=== PATIENT | male | born 1950 | race Caucasian/White ===

== ENCOUNTER → 2020-01-14 11:11 | Outpatient (BNVA) | payer MEDICARE, OTHER, SELFPAY | PROVIDERS: Visit Provider Family Medicine | DX: E78.2 Mixed hyperlipidemia (principal); I10 Essential (primary) hypertension; M19.90 Unspecified osteoarthritis, unspecified site; N40.0 Benign prostatic hyperplasia without lower urinary tract symptoms; R05 Cough | CPT/HCPCS: 80053; 80061; G0103 ==

== ENCOUNTER → 2020-07-26 11:17 | Outpatient (BNVA) | payer MEDICARE, OTHER, SELFPAY | PROVIDERS: PCP Family Medicine; Visit Provider Family Medicine | DX: E78.2 Mixed hyperlipidemia (principal); I10 Essential (primary) hypertension | CPT/HCPCS: 80053; 80061; 85025 ==

== ENCOUNTER → 2021-01-10 09:53 | Outpatient (BNVA) | payer MEDICARE, OTHER, SELFPAY | PROVIDERS: PCP Family Medicine; Visit Provider Nurse Practitioner Family | DX: I71.9 Aortic aneurysm of unspecified site, without rupture (principal); M48.54XA Collapsed vertebra, not elsewhere classified, thoracic region, initial encounter for fracture; M54.5 Low back pain; R07.81 Pleurodynia; M54.6 Pain in thoracic spine | CPT/HCPCS: 71111; 72070; 72100 ==

== ENCOUNTER 2021-01-10 18:29 | Emergency (ER) | payer MEDICARE, OTHER, SELFPAY ==
[2021-01-10 18:40] VITALS: BP 142/86; PULSE 105; RESP 20; TEMP 36.8; O2SAT 97; BMI 25.9
--- NOTE | 2021-01-10 18:51 | ED_ITS ---
HPI - Back Pain/Injury General: Chief Complaint: Back Pain/Injury Stated Complaint: back injury Time Seen by Provider: 01/10/21 18:49 Source: patient Mode of arrival: wheelchair Limitations: no limitations History of Present Illness: HPI Narrative: 70-year-old male patient presents to the emergency department with complaints of back pain. He reports exhibited coughing spell on Saturday, December 25, 2020, passed out, he thinks he hit his back on the wall, when he woke he was kneeling in front of his seat. He reports was only out for a few minutes. He has COPD, similar incident has occurred in the past. He was seen by his primary care provider Saturday, compression fracture of T9 with 50% loss of vertebral height and no obvious displacement appreciated. He continues to complain of pain in the thoracic spine as well as in the lumbar spine. He states is hurting all across his back. He denies headache, neck pain or other extremity pain. He denies radiculopathy complaints. States difficulty walking secondary to pain he experiences in his back. He reports difficulty lying flat on his back secondary to pain. MD elicited complaint: back pain, back injury and fall Onset (ago): day(s) (3) Timing: constant and progressively worsening Severity: moderate Similar Symptoms Previously: Yes Quality: sharp and stabbing Location: lumbar spine and thoracic spine Radiation: none Exacerbating factors: movement, supine positioning, walking and coughing/sneezing Relieving factors: immobilization and sitting upright Context: fall and syncope Associated symptoms: Reports difficulty walking, dysuria and syncope; Deny abdominal pain, chills, fatigue, fever(s), nausea or vomiting Work related injury: No Review of Systems General: Reports: 10 or more systems reviewed and unremarkable except in HPI and below Const: Denies: fever(s), chills, fatigue, malaise or diaphoresis Eyes: Denies: blurry vision or eye redness ENMT: Denies: throat pain, dental pain or disequilibrium Card: Reports: syncope and dyspnea on exertion (chronic due to COPD); Denies: chest pain, palpitations or orthopnea Resp: Reports: productive cough, pain on inspiration (thoracic spine) and chest congestion; Denies: dyspnea, non-productive cough, wheezing, change in phlegm color or hemoptysis GI: Denies: abdominal pain, nausea or vomiting : Reports: dysuria and difficulty starting urination; Denies: flank pain Musc: Reports: back pain; Denies: neck pain, extremity pain, muscle cramps or muscle weakness Skin/Breast: Denies: rash or pruritus Neuro: Reports: difficulty walking Psych: Denies: anxiety or depression Wilberto/Lymph: Denies: easy bruising PFSH ED PFSH: Medical History (Updated 01/10/21 @ 21:05 by CAMILA Gong) Abdominal hernia Acute depression Adenocarcinoma of prostate (~2012) Chronic constipation Chronic radicular low back pain Essential (primary) hypertension Glaucoma Hyperlipidemia, unspecified Male urinary stress incontinence Panlobular emphysema Surgical History Hx of cataract surgery Hx of detached retina repair right x 3 Hx of prostatectomy Hx of removal of neck cyst Hx of right inguinal hernia repair Family History Brother Cancer prostate, colon Chronic kidney disease (CKD) Hypertension Diabetes Father Chronic kidney disease (CKD) Social History Smoking and tobacco status: current every day smoker cigarettes Packs smoked per day: 1 Years cigarettes smoked: 30 Alcohol intake: never Lives independently: Yes Household members: none Housing: Apartment Marital status: Current occupational status: retired History of recent travel: No Current gender identity: Male Physical Exam Const: COMMON NORMALS: no acute distress, patient oriented x3, healthy appearing and alert GENERAL APPEARANCE: cooperative, comfortable and well hydrated HENMT: COMMON NORMALS: normocephalic, Normal external nose present and moist oral mucous membranes HEAD & SCALP: normocephalic NOSE: Normal external nose present Eye: COMMON NORMALS: Equal, round and reactive pupils present and EOMs intact bilaterally GENERAL EYE: appearance normal, both eyes and all related structures PUPIL: Yes Equal, round and reactive pupils present Neck/C-Spine: COMMON NORMALS: full ROM, no lymphadenopathy, supple and no meningeal signs GENERAL: Yes normal visual inspection and Yes trachea midline CERVICAL SPINE: Yes cervical ROM normal, No pain with cervical ROM, No loss of normal cervical lordosis, No Cervical spine tenderness, No Paracervical muscle tenderness, No Paracervical spasm and No Trapezius muscle tenderness Lymph: LYMPHATIC: no lymphadenopathy noted Chest: COMMONS NORMALS: normal inspection of the chest and normal palpation of entire chest wall CHEST: No localized rib tenderness with anteroposterior compression Resp: COMMON NORMALS: normal respiratory effort, No retractions, No use of accessory muscles and clear to auscultation bilaterally EFFORT & INSPECTION: Yes able to speak in complete sentences, No decreased respiratory effort and No labored AUSCULTATION: clear to auscultation bilaterally and rhonchi (scattered, cleared wtih cough) Cardio: COMMON NORMALS: regular rate, regular rhythm, S1 normal heart sound present, S2 normal heart sound present and Peripheral pulses 2+ throughout RATE: regular rate RHYTHM: regular rhythm HEART SOUNDS: S1 normal heart sound present and S2 normal heart sound present PERIPHERAL PULSES: Peripheral pulses 2+ throughout GI: COMMON NORMALS: Normal to inspection, nondistended, normoactive bowel sounds present, Soft to palpation and non-tender INSPECTION: Yes normal to inspection PALPATION: Yes Soft to palpation : COMMON NORMALS: Yes no CVA tenderness BLADDER/KIDNEY EXAM: Yes no CVA tenderness Back/Pelvis: COMMON NORMALS: no CVA tenderness THORACIC SPINE/UPPER BACK: Yes ROM limited, Yes thoracic spinal tenderness T-spine tenderness location: T4, T5, T6, T7 and T8, Yes paraspinal muscle tenderness and Yes paraspinal muscle spasm LUMBAR SPINE/LOWER BACK: Yes ROM limited, Yes paraspinal muscle tenderness and Yes paraspinal muscle spasm PELVIS: Yes buttocks normal S ACROILIAC JOINTS: Yes SI joints normal Extremity: COMMON NORMALS: normal to inspection and capillary refill normal Neuro: YESY COMA SCALE: document GCS findings [place] coma scale eye opening: Spontaneous Yesy coma scale verbal response: Orientated [place] coma scale motor response: Obey commands [place] coma scale total score: 15 COMMON NORMALS: patient oriented x3 and no focal motor deficits SENSORIUM/ORIENTATION: Yes alert MENINGEAL SIGNS: Yes no meningeal signs MONOFILAMENT EXAM PERFORMED: Yes MOTOR EXAM: 5/5 motor strength present throughout Psych: COMMON NORMALS: mental status grossly normal, Normal thought process present, cooperative, normal affect, speech normal and activity/motor behavior normal ACTIVITY/MOTOR BEHAVIOR: Yes appropriate eye contact SPEECH: Yes normal speech THOUGHT PROCESS: Normal thought process present Skin: COMMON NORMALS: no rashes or lesions noted and turgor normal GENERAL SKIN EXAM: no rashes or lesions noted and turgor normal Course ED course: 70-year-old male patient presents to the emergency department with thoracic spine fracture, was sent to the ED by his primary care provider, he denies radiculopathy, numbness tingling or weakness of the bilateral lower extremities. X-rays reviewed as well as radiology reports, chest x-ray completed today without acute findings. He suffers from COPD. He was administered hydrocodone for pain, pain improved, neurological exam of the extremities without deficits. Incidental finding of aortic iliac aneurysm with recommendation for outpatient serial follow-up identified. Called and spoke with Dr. Delgadillo, TLSO brace from [employer] ordered and placed here in the ED. Case discussed with Dr. Jansen, patient provided prescription of hydrocodone with referral to social work supervisor to assist with appointment with Dr. Delgadillo. Consultations: Consultation #1: Dr Delgadillo, orthopedist, discussed history of present illness, mechanism of injury and CT results of thoracic and lumbar spine, compression fracture T9 with 50% height loss anteriorly. Advise use of TLSO brace with appropriate pain control. Agrees to follow patient in the office. Time: 21:00 Vital Signs: Vital signs: Vital Signs Temperature 97.3 F L 01/10/21 21:10 Pulse Rate 108 H 01/10/21 21:10 Respiratory Rate 19 H 01/10/21 21:10 Blood Pressure 132/74 01/10/21 21:10 Pulse Oximetry 97 01/10/21 18:40 MDM - Back Pain/Injury Imaging Data^: Other CT: Radiologist's impression: [address] [address] [address] Scan Report Signed Patient: Juno Sapp Unit #: [id number] : 1950 Age/Sex: 70 / M ADM Date: 01/10/21 Loc: ER Room/Bed: Attending Dr: Ordering Provider/Ordering MD: Yumi Alexander Date of Service: 01/10/21 Procedure(s): CT lumbar spine wo con* [id number] Accession Number(s): [id number] Report Number: [id number] PROCEDURE INFORMATION: Exam: CT Lumbar Spine Without Contrast Exam date and time: 01/10/2021 7:19 PM Age: 70 years old Clinical indication: Injury or trauma; Fall; Blunt trauma (contusions or hematomas); Additional info: Lbp S/P fall TECHNIQUE: Imaging protocol: Computed tomography images of the lumbar spine without contrast. Radiation optimization: All CT scans at this facility use at least one of these dose optimization techniques: automated exposure control; mA and/or kV adjustment per patient size (includes targeted exams where dose is matched to clinical indication); or iterative reconstruction. COMPARISON: CR XR lumbar spine 2-3V* [id number] 01/10/2021 10:05 AM RADIATION DOSE METRICS: Total DLP (mGy-cm): 2437.94 FINDINGS: Vertebrae: No fractures. Unremarkable alignment. Diffuse osseous demineralization.The lumbar spine demonstrates marked discogenic and apophyseal joint degenerative changes at multiple levels. Vasculature: Large volume diffuse atherosclerosis of abdominal aorta and the iliac arteries. Mild severity fusiform distal abdominal aortic aneurysm 3.2 cm greatest diameter. 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 Fusiform bilateral common iliac artery aneurysms measuring 2.0 cm on the right and about 1.8 cm on the left. Soft tissues: Moderate severity spinal canal stenosis at L3-L4 and L4-L5 secondary to broad-based posterior disc bulge, facet joint arthritis and ligamentum flavum thickening. CT/CT lumbar spine wo con* [id number] IMPRESSION: 1. Negative for acute lumbar spine abnormality. 2. Mild fusiform aortoiliac aneurysms. Outpatient surveillance recommended. Radiation Dose CTDIVOL = (mGy): DLP = 2437.94 (mGy-cm) Dictated By: Yusef Guevara Signed By: Yusef Guevara Signed Date/Time: 01/10/212044 DD/ 43 Other Imaging: Radiologist's impression: [address] [address] [address] Scan Report Signed Patient: Juno Sapp Unit #: [id number] : 1950 Age/Sex: 70 / M ADM Date: 01/10/21 Loc: ER Room/Bed: Attending Dr: Ordering Provider/Ordering MD: Yumi Alexander Date of Service: 01/10/21 Procedure(s): CT thoracic spin wo con* [id number] Accession Number(s): [id number] Report Number: [id number] PROCEDURE INFORMATION: Exam: CT Thoracic Spine Without Contrast Exam date and time: 01/10/2021 7:19 PM Age: 70 years old Clinical indication: Injury or trauma; Blunt trauma (contusions or hematomas); Patient HX: Fall, left rib pain; Additional info: Compression fracture TECHNIQUE: Imaging protocol: Computed tomography images of the thoracic spine without contrast. Radiation optimization: All CT scans at this facility use at least one of these dose optimization techniques: automated exposure control; mA and/or kV adjustment per patient size (includes targeted exams where dose is matched to clinical indication); or iterative reconstruction. COMPARISON: CR XR thoracic spine 2V [id number] 01/10/2021 10:05 AM RADIATION DOSE METRICS: Total DLP (mGy-cm): 1571.16 FINDINGS: Vertebrae: T9 compression fracture. There is concavity of the inferior endplate primarily. Greater than 50% height loss anteriorly. There is mild retropulsion of the inferior posterior corner of the vertebral body. Thoracic spinal alignment is unremarkable. Posterior elements are intact and unremarkable. No soft tissue hematoma in the epidural space identified. Mild severity spinal canal stenosis at T9-T10 secondary to the mild retropulsion of the inferior T9 vertebral body fracture component. Other bones/joints: Bones are diffusely demineralized. Liver: Incidental simple cyst in the central right liver. Soft tissues: Mild anterior paravertebral soft tissue hematoma. No intramuscular paraspinal soft tissue hematoma. Large volume diffuse atherosclerotic wall plaque of descending thoracic aorta. Mild diffuse ectasia pattern. CT/CT thoracic spin wo con* [id number] IMPRESSION: T9 vertebral compression fracture as described. Radiation Dose CTDIVOL = (mGy): DLP = 1571.16 (mGy-cm) Dictated By: Yusef Guevara Signed By: Yusef Guevara Signed Date/Time: 01/10/212001 DD/ 00 Discharge Plan Discharge Patient Disposition: Home Clinical Impression: Fall against object, Abdominal aneurysm Compression fracture of thoracic vertebra Qualifiers: Encounter type: initial encounter Thoracic vertebra fracture level: T9 Qualified Code(s): S22.070A - Wedge compression fracture of T9-T10 vertebra, initial encounter for closed fracture Condition: Stable Prescriptions: New hydrocodone-acetaminophen 5-325 mg tablet 1 tab PO Q4H PRN (Reason: pain) Qty: 10 RF: 0 No Action citalopram 20 mg tablet 20 mg PO DAILY Qty: 30 RF: 5 rosuvastatin [Crestor] 10 mg tablet 10 mg PO DAILY Qty: 30 RF: 4 omeprazole 20 mg capsule,delayed release(DR/EC) 20 mg PO DAILY Qty: 30 RF: 5 tramadol 50 mg tablet 50 mg PO BID PRN (Reason: rib pain) Qty: 20 RF: 0 valsartan 160 mg tablet 160 mg PO DAILY Qty: 90 RF: 1 albuterol sulfate [Ventolin HFA] 90 mcg/actuation HFA aerosol inhaler 2 puff INHALATION Q6H PRN (Reason: bronchospasm) Qty: 8.5 RF: 4 celecoxib 200 mg capsule 200 mg PO DAILY RF: 0 latanoprost 0.005 % drops 1 drp ophthalmic (eye) DAILY RF: 0 Discharge Orders: Discharge ED (Routine); Ordered 01/10/21 Ordered By: Yumi Alexander Referrals: Ketty Sapp MD [Primary Care Provider] - Discharge Activity: Limit activity as instructed Patient Instructions: Vertebral Compression Fracture (ED), Abdominal Aortic Aneurysm (GEN), Opioid Safety Activity Restrictions/Additional Instructions: Please wear brace as instructed by therapist, this will help with pain and and healing of the fracture environmental services coordinator will be contacting you with follow-up appointment with specialty services, Dr. Delgadillo for compression fracture Incidental mild aortic iliac aneurysm was evaluated today on CT scan completed, outpatient surveillance recommended with continued follow-up with your primary care provider. Return to the emergency department if you develop worsening pain, numbness of the lower extremities or other concerning symptoms such as abdominal pain Coding Level of Care Code ED General Manager In Training for S[employer]il[employer] Fwd Exam Comprehensive
--- NOTE | 2021-01-10 18:58 | CTR_ITS ---
PROCEDURE INFORMATION: Exam: CT Thoracic Spine Without Contrast Exam date and time: 01/10/2021 7:19 PM Age: 70 years old Clinical indication: Injury or trauma; Blunt trauma (contusions or hematomas); Patient HX: Fall, left rib pain; Additional info: Compression fracture TECHNIQUE: Imaging protocol: Computed tomography images of the thoracic spine without contrast. Radiation optimization: All CT scans at this facility use at least one of these dose optimization techniques: automated exposure control; mA and/or kV adjustment per patient size (includes targeted exams where dose is matched to clinical indication); or iterative reconstruction. COMPARISON: CR XR thoracic spine 2V [id number] 01/10/2021 10:05 AM RADIATION DOSE METRICS: Total DLP (mGy-cm): 1571.16 FINDINGS: Vertebrae: T9 compression fracture. There is concavity of the inferior endplate primarily. Greater than 50% height loss anteriorly. There is mild retropulsion of the inferior posterior corner of the vertebral body. Thoracic spinal alignment is unremarkable. Posterior elements are intact and unremarkable. No soft tissue hematoma in the epidural space identified. Mild severity spinal canal stenosis at T9-T10 secondary to the mild retropulsion of the inferior T9 vertebral body fracture component. Other bones/joints: Bones are diffusely demineralized. Liver: Incidental simple cyst in the central right liver. Soft tissues: Mild anterior paravertebral soft tissue hematoma. No intramuscular paraspinal soft tissue hematoma. Large volume diffuse atherosclerotic wall plaque of descending thoracic aorta. Mild diffuse ectasia pattern. CT/CT thoracic spin wo con* [id number] IMPRESSION: T9 vertebral compression fracture as described. Radiation Dose CTDIVOL = (mGy): DLP = 1571.16 (mGy-cm)
--- NOTE | 2021-01-10 18:58 | CTR_ITS ---
PROCEDURE INFORMATION: Exam: CT Lumbar Spine Without Contrast Exam date and time: 01/10/2021 7:19 PM Age: 70 years old Clinical indication: Injury or trauma; Fall; Blunt trauma (contusions or hematomas); Additional info: Lbp S/P fall TECHNIQUE: Imaging protocol: Computed tomography images of the lumbar spine without contrast. Radiation optimization: All CT scans at this facility use at least one of these dose optimization techniques: automated exposure control; mA and/or kV adjustment per patient size (includes targeted exams where dose is matched to clinical indication); or iterative reconstruction. COMPARISON: CR XR lumbar spine 2-3V* [id number] 01/10/2021 10:05 AM RADIATION DOSE METRICS: Total DLP (mGy-cm): 2437.94 FINDINGS: Vertebrae: No fractures. Unremarkable alignment. Diffuse osseous demineralization.The lumbar spine demonstrates marked discogenic and apophyseal joint degenerative changes at multiple levels. Vasculature: Large volume diffuse atherosclerosis of abdominal aorta and the iliac arteries. Mild severity fusiform distal abdominal aortic aneurysm 3.2 cm greatest diameter. 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 Fusiform bilateral common iliac artery aneurysms measuring 2.0 cm on the right and about 1.8 cm on the left. Soft tissues: Moderate severity spinal canal stenosis at L3-L4 and L4-L5 secondary to broad-based posterior disc bulge, facet joint arthritis and ligamentum flavum thickening. CT/CT lumbar spine wo con* [id number] IMPRESSION: 1. Negative for acute lumbar spine abnormality. 2. Mild fusiform aortoiliac aneurysms. Outpatient surveillance recommended. Radiation Dose CTDIVOL = (mGy): DLP = 2437.94 (mGy-cm)
[2021-01-10] MEDS: HYDROcodone-acetaminophen 5-325 mg Tablet 1 TAB PO ×3 (19:08→23:30)
[2021-01-10 21:10] VITALS: BP 132/74; PULSE 108; RESP 19; TEMP 36.3
[2021-01-10 23:33] VITALS: BP 120/71; PULSE 106; RESP 17; TEMP 36.3; O2SAT 97
--- NOTE | 2021-01-11 12:46 | DCPLANNER ---
quality compliance manager had message to schedule a follow up appointment for patient with ortho. quality compliance manager called the ortho clinic, spoke with Kriss, gave clinic patients information. quality compliance manager was told that patients information would be printed and reviewed. Clinic will call patient with appointment information.
--- NOTE | 2021-01-17 08:24 | DCPLANNER ---
Patient had a follow up appointment scheduled for 01.12.[address] Delgadillo at [facility] - patient did attend appointment.
== END 2021-01-10 23:35 | disposition home or self-care (01) ==
PROVIDERS: Emergency Provider Nurse Practitioner Family; PCP Family Medicine
DX: S22.070A Wedge compression fracture of T9-T10 vertebra, initial encounter for closed fracture (principal); I71.4 Abdominal aortic aneurysm, without rupture; Z85.46 Personal history of malignant neoplasm of prostate; I10 Essential (primary) hypertension; E78.5 Hyperlipidemia, unspecified; Z90.79 Acquired absence of other genital organ(s); F17.210 Nicotine dependence, cigarettes, uncomplicated; W22.8XXA Striking against or struck by other objects, initial encounter; I71.9 Aortic aneurysm of unspecified site, without rupture; M48.54XA Collapsed vertebra, not elsewhere classified, thoracic region, initial encounter for fracture; M54.5 Low back pain; R07.81 Pleurodynia; M54.6 Pain in thoracic spine
CPT/HCPCS: 71111; 72070; 72100; 72128; 72131; 99283

== ENCOUNTER 2021-02-22 06:00 | Outpatient (RCR) | payer MEDICARE, OTHER, SELFPAY | END 2021-03-14 23:00 | disposition home or self-care (01) | LOC: TPT 06:00 | PROVIDERS: PCP Family Medicine; Referring Provider Orthopaedic Surgery; Visit Provider Orthopaedic Surgery | DX: M54.5 Low back pain (principal) | CPT/HCPCS: 97110; 97161 ==

== ENCOUNTER → 2021-03-15 09:21 | Outpatient (BNVA) | payer MEDICARE, OTHER, SELFPAY | PROVIDERS: PCP Family Medicine; Visit Provider Family Medicine | DX: E78.2 Mixed hyperlipidemia (principal); I10 Essential (primary) hypertension | CPT/HCPCS: 80053; 80061; 85025 ==

== ENCOUNTER → 2021-03-21 09:53 | Outpatient (BNVA) | payer MEDICARE, OTHER, SELFPAY | PROVIDERS: PCP Family Medicine; Visit Provider Orthopaedic Surgery | DX: S22.000A Wedge compression fracture of unspecified thoracic vertebra, initial encounter for closed fracture (principal); M47.897 Other spondylosis, lumbosacral region; M41.87 Other forms of scoliosis, lumbosacral region; X58.XXXA Exposure to other specified factors, initial encounter | CPT/HCPCS: 72100 ==

== ENCOUNTER → 2021-07-12 10:00 | Outpatient (BNVA) | payer MEDICARE, OTHER, SELFPAY | PROVIDERS: PCP Family Medicine; Visit Provider Family Medicine | DX: E78.2 Mixed hyperlipidemia (principal); I10 Essential (primary) hypertension; J43.1 Panlobular emphysema; K21.9 Gastro-esophageal reflux disease without esophagitis | CPT/HCPCS: 80053; 80061; 84443; 85025 ==

== ENCOUNTER → 2021-10-18 16:58 | Outpatient (BNVA) | payer MEDICARE, OTHER, SELFPAY | PROVIDERS: PCP Family Medicine; Visit Provider Family Medicine | DX: I10 Essential (primary) hypertension (principal); E78.2 Mixed hyperlipidemia | CPT/HCPCS: 80053; 80061; 84443; 85025 ==

== ENCOUNTER → 2022-01-25 14:50 | Outpatient (BNVA) | payer MEDICARE, OTHER, SELFPAY | PROVIDERS: PCP Family Medicine; Visit Provider Family Medicine | DX: E78.2 Mixed hyperlipidemia (principal); I10 Essential (primary) hypertension; J43.1 Panlobular emphysema; K21.9 Gastro-esophageal reflux disease without esophagitis; M19.90 Unspecified osteoarthritis, unspecified site | CPT/HCPCS: 80053; 80061; 84443; 85025 ==

== ENCOUNTER → 2022-06-05 14:15 | Outpatient (BNVA) | payer MEDICARE, OTHER, SELFPAY | PROVIDERS: PCP Family Medicine; Visit Provider Family Medicine | DX: I10 Essential (primary) hypertension (principal); M19.90 Unspecified osteoarthritis, unspecified site; K21.9 Gastro-esophageal reflux disease without esophagitis; E78.2 Mixed hyperlipidemia | CPT/HCPCS: 80053; 80061; 84443; 85025 ==

== ENCOUNTER → 2022-09-26 15:49 | Outpatient (BNVA) | payer MEDICARE, OTHER, SELFPAY | PROVIDERS: PCP Family Medicine; Visit Provider Family Medicine | DX: I10 Essential (primary) hypertension (principal); K21.9 Gastro-esophageal reflux disease without esophagitis; E78.2 Mixed hyperlipidemia | CPT/HCPCS: 80053; 80061; 84443; 85025 ==

== ENCOUNTER 2022-09-27 07:15 | Outpatient (CLI) | payer MEDICARE, OTHER, SELFPAY ==
--- NOTE | 2022-09-27 07:45 | USR_ITS ---
PROCEDURE INFORMATION: Exam: US Duplex Left Lower Extremity Arteries Or Arterial Bypass Grafts Exam date and time: 09/27/2022 7:38 AM Age: 71 years old Clinical indication: Pain; Leg, lower; Left; Additional info: M79.605 - pain in left leg TECHNIQUE: Imaging protocol: Left Real-time duplex scan of the arteries or arterial bypass grafts of the left lower extremity with 2-D abraham scale, color Doppler flow and spectral waveform analysis. Images documented and saved. COMPARISON: CT abdomen pelvis w con* [id number] 05/10/2018 1:05 PM FINDINGS: Left external iliac artery: Left iliac artery: Peak systolic velocity of 29 cm/s proximally, 10 cm/s in the midportion, and 7 cm/s distally. Monophasic waveforms. Left common femoral artery: Peak systolic velocity of 32 cm/s. Monophasic waveform. Left superficial femoral artery: Peak systolic velocity of 26 cm/s. Monophasic waveform. Left popliteal artery: Peak systolic velocity of 22 cm/s. Monophasic waveform waveform. Left calf/foot arteries: Peak systolic velocity of 11 cm/s in the posterior tibial artery, with monophasic waveform. Peak systolic velocity of 19 cm/s in the dorsalis pedis artery, with monophasic waveform. Other findings: Left JEAN PAUL 0.56. 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
== END 2022-09-27 07:16 | disposition home or self-care (01) ==
LOC: RAD 07:16
PROVIDERS: PCP Family Medicine; Visit Provider Family Medicine
DX: M79.605 Pain in left leg (principal)
CPT/HCPCS: 93926

== ENCOUNTER → 2022-12-03 13:01 | Outpatient (BNVA) | payer MEDICARE, OTHER, SELFPAY | PROVIDERS: PCP Family Medicine; Visit Provider Internal Medicine | DX: M79.605 Pain in left leg (principal); I10 Essential (primary) hypertension; E78.2 Mixed hyperlipidemia; F17.210 Nicotine dependence, cigarettes, uncomplicated | CPT/HCPCS: 99204 ==

== ENCOUNTER 2022-12-04 09:34 | Outpatient (CLI) | payer MEDICARE, OTHER, SELFPAY ==
[2022-12-04 10:06] LABS: Basophils # 0.1 10^3/uL (0.0-0.1); Basophils % 0.8 %; Eosinophils # 0.2 10^3/uL (0.0-0.8); Eosinophils % 3.4 %; Hematocrit 44.3 % (42.0-52.0); Hemoglobin 14.3 g/dL (11.7-16.6); Lymphocytes # 1.1 10^3/uL (0.8-4.8); Lymphocytes % 15.4 %; Mean Corpuscular HGB Conc 32.3 g/dL (30.0-36.0); Mean Corpuscular Hemoglobin 29.5 pg (28.0-34.0); Mean Corpuscular Volume 91.3 fl (80-94); Mean Platelet Volume 8.6 fL (7.4-10.4); Monocytes # 0.6 10^3/uL (0.2-0.9); Monocytes % 8.7 %; Neutrophils # 5.09 10^3/uL (1.8-7.7); Neutrophils % 71.3 %; Nucleated Red Blood Cells % 0 %; Platelet Count 323 10^3/cmm (130-400); Red Blood Count 4.85 10^6/uL (4.1-5.3); Red Cell Distribution Width 13.6 % (12.1-15.1); White Blood Count 7.1 10^3/uL (4.0-10.0)
[2022-12-04 10:25] LABS: INR 0.99 (0.83-1.21); Prothrombin Time (Patient) 13.3 Seconds (12.0-15.1)
[2022-12-04 10:30] LABS: Anion Gap 13.7 (5-19); Blood Urea Nitrogen 10 mg/dL (8-23); Calcium 8.9 mg/dL (8.5-10.5); Carbon Dioxide 29 mmol/L (22-29); Chloride 101 mmol/L (98-107); Glucose 93 mg/dL (65-115); Osmolality Calculated 289 mOsm/kg (285-295); Potassium 3.7 mmol/L (3.5-5.1); Sodium 140 mmol/L (136-145)
== END 2022-12-04 09:35 | disposition home or self-care (01) ==
LOC: LAB 09:41
PROVIDERS: PCP Family Medicine; Visit Provider Internal Medicine
DX: I73.9 Peripheral vascular disease, unspecified (principal); I10 Essential (primary) hypertension
CPT/HCPCS: 36415; 80048; 85025; 85610

== ENCOUNTER 2022-12-06 07:24 | Outpatient (CLI) | payer MEDICARE, OTHER, SELFPAY ==
[2022-12-06] VITALS (20 sets, daily range): BP systolic 106–148; BP diastolic 63–79; PULSE 79–100; RESP 8–23; TEMP 36.8; O2SAT 94–98; BMI 23.5
--- NOTE | 2022-12-06 07:30 | XACV_ITS ---
Ht: 170 cm Wt: 68 kg BSA: 1.80 m2 Any Known Allergies: No known allergies Gender: Male : 1950 Exam Type: Invasive Peripheral Vascular Procedure(s): Procedure Description: Peripheral Cath Diagnostic Procedure Procedure Description: Abdominal aortic angiography Procedure Description: Iliac arterial aortic angiography Procedure Description: Lower extremities' angiography Exam Priority: Routine Abdominal Diagnostic Findings INDICATION: 72-year-old man with past medical history of hyperlipidemia, hypertension who has been referred for evaluation of peripheral artery disease. According to patient he has been having worsening lower extremity discomfort on exertion bilaterally however it is much worse on the left lower extremity. He underwent arterial Doppler of the left lower extremity with JEAN PAUL. JEAN PAUL 0.56. Doppler ultrasound shows both inflow and outflow disease. Distal abdominal aorta: Patent. Lower Extremity Diagnostic Findings Left Lower extremity findings: Left common iliac artery: Has severe 60 to 70% ostial lesion. Left external iliac artery:Totally occluded. Left common femoral artery: Occluded. Left SFA: Patent. Left profunda: Patent. Left popliteal artery:Patent. Left TP segment: Patent. At takeoff of anterior tibial artery: Distal popliteal/TP segment has a calcified lesion. Left anterior tibial artery: Patent but has significant 70 to 80% long lesion Left peroneal artery: Patent Left posterior tibial artery: Patent. Right lower extremity findings: Right common iliac artery: Patent. Right external iliac artery: Totally occluded. Right common femoral artery: Occluded. Right SFA: Patent. Right profunda artery: Patent. Rightpopliteal artery: Patent. Right anterior tibial artery: Occluded. Right TP segment: Occluded Right Posterior tibial artery: reconstitutes via collaterals Right peroneal artery: Reconstitutes via collaterals. . Conclusions Severe bilateral peripheral artery disease. Recommendations We will refer to vascular surgery team. Outpatient cardiology follow up in 4 weeks. Hemodynamic Data Phase:Rest AO : 104.0 / 54.0 ( 70.0 ) @ 9:19:00 AM Access Site Site: Right Radial artery Sheath Size: 6 Fr Hemost... Method: TR Band Hemost... Success: Successful Procedure Details Findings Pre-Procedure Time Out. Identified patient by full name and date of as verbalized by the patient/guarantor. Does the consent match the physician's order: Yes. Accurate & Complete Informed Consent: Yes. Inpatient/Outpatient History & Physical on Chart: Yes. If H&P is completed, is and addenduem needed: No. Visualize and Verify Site with Patient/Guarantor: N/A. Relevant Radiology Images available: Yes. Pre-op teaching completed and patient verbalized understanding. The risks, benefits, and alternatives of sedation and/or procedure were discussed by physician. The patient agrees to continue. Procedure started. Vital chart was stopped. Correct patient, site and procedure confirmed by cath team. Current diagnosis: PAD. PERRLA. Strong, equal hand financial analysis manager bilaterally. Lungs clear x 5 lobes. IV Site on Arrival: 20 gauge in the right anticubital. IV Fluids: 0.9% NaCl at KVO. 0 mL infused prior to labor specialist. Pre Procedural Pulses: right dorsalis pedis was Absent. Pre Procedural Pulses: left dorsalis pedis was Doppled. Pre Procedural Pulses: bilateral posterior tibial was Doppled. Pre Procedural Pulses: bilateral radial was 2+. Oxygen started at 2liters/min via nasal canula. Physician notified. Baseline sample Acquired. HR: 98 BPM. Baseline sample Acquired. HR: 95 BPM. Equipment: 6F - Femoral. Cardiac Cath Pack. ACIST Manifold Kit Model BT 2000. Heparinized Saline (2 units/mL), 1000 mL bag. Kit, Micropuncture. Physician arrived. Physician scrubbed in. Immediate Pre-Procedure Time Out. Correct Patient: Yes; Correct Procedure: Yes; Correct Site: Yes; Correct Patient Position: Yes; Correct Supplies: Yes; Dried Flammable Prep: Yes; Blood Products Available: N/A. Lidocaine 1% infiltrated to the right groin. Arterial access obtained with micropuncture set using ultrasound guidance. Sheath kit wire unable to advance. Hand injection performed. Micropucture needle out, manual pressure being held by RT Gregg(R). Will move to radial access. Lidocaine 1% infiltrated to the right radial. Arterial access obtained using ultrasound guidance. A 6 marshallese Straight Pig catheter in over the exchange J wire. Aortogram performed in AP @ 10 mL/second for a total of 30 mL. Pigtail postioned above the bifurcation of the iliacs. Aortagram performed @ 10 mL/sec for a total of 30 mL in DSA. Catheter in the aorta and arteriogram with runoff performed of the left popliteal @ 10 mL/sec for a total of 30 mL in DSA. Catheter in the aorta and arteriogram with runoff performed of the right popliteal@ 10 mL/sec for a total of 30 mL. Catheter in the aorta and arteriogram with runoff performed of the right popliteal @ 10 mL/sec for a total of 30 mL in DSA. Aortogram performed in AP @ 10 mL/second for a total of 30 mL in DSA. Catheter removed over the exchange J wire. Dr Prado scrubbed out after updating the patient. A TR Band was successful obtaining hemostatsis at the Right Radial artery insertion site. TR band placed. Hemostasis obtained. Post Procedure: Pulses reassessed and unchanged. PERRLA. Strong, equal hand financial analysis manager bilaterally. No VTE prophylaxis required. Medication's Wasted: Nitro = 49.8 mg. Medication's Wasted: Heparin = 3000 units. Medication's Wasted: Other = Fentanyl 25 mcg. Total IV fluids: 99 mL. Complications: none. Estimated blood loss: 5mL-10mL. Responsiveness - Normal response to verbal stimuli; alert and oriented, PERRLA. Airway - Unaffected, no intervention required; spontaneous ventilation. Circulation: W/N/L, pulses unchanged. Nausea/Vomiting: No. Procedure completed. Patient transferred by stretcher to CPRU. Vital chart was stopped. Procedure Medications Start: 9:18 AM Stop: 9:18 AM Medication: Versed Amount: 1 mg Route: I.V. Start: 9:18 AM Stop: 9:18 AM Medication: Fentanyl Amount: 50 mcg Route: I.V. Start: 9:18 AM Stop: 9:18 AM Medication: Heparin Amount: 3000 units Route: I.V. Start: 9:18 AM Stop: 9:18 AM Medication: Versed Amount: 1 mg Route: I.V. Start: 9:18 AM Stop: 9:18 AM Medication: Fentanyl Amount: 25 mcg Route: I.V. I, the attending physician, have reviewed and verified all procedure medications. Yes, all medications given per verbal order History/Risk Factors Hypertension: Yes Dyslipidemia: No Peripheral Arterial Disease (PAD): No Obesity: No Renal Disease: No Tobacco Use: Current/Recent(w/in 1 year) Prior Interventions PCI: No CABG: No Valve Surgery: No Report Signatures Finalized by Sean Prado MD on 12/12/2022 02:12 PM
[2022-12-06] MEDS: aspirin 325 mg Tablet PO (08:12)
[2022-12-06] MEDS: diphenhydrAMINE 50 mg Capsule PO (08:12)
--- NOTE | 2022-12-06 08:57 | W.PM.OPSUD ---
Surgery/Procedure H&P Update DATE OF PROCEDURE: December 06, 2022 DATE H&P PERFORMED: 12/03/22 H&P UPDATE INFORMATION: I have reviewed H&P completed within last 30 days, I have examined patient prior to procedure and No changes to prior documentation PREOP DIAGNOSIS: Lifestyle limiting claudication/ abnormal JEAN PAUL PRIMARY INDICATION FOR PROCEDURE: Lifestyle limiting claudication/ abnormal JEAN PAUL PLANNED PROCEDURE: Operation Date: 12/06/22 08:30 Proposed Procedures p Peripheral Diagnostic 89764,I73.9(Not Applicable) - Sean Prado M.D PATIENT REASSESSED PRIOR TO SEDATION, WITH NO CHANGE NOTED: Yes PHYSICAL EXAM: alert, oriented x 3, clear to auscultation bilaterally and regular rate & rhythm AIRWAY EVAL/ANESTHESIA PLAN: normal airway, ASA III, Local Anesthesia, Risks, benefits & alternatives of sedation and/or procedure discussed and Patient agrees to continue as planned ADDITIONAL INFORMATION: Moderate sedation
--- NOTE | 2022-12-06 09:40 | SUR.PHASEII ---
POST CATH NOTE Patient brought back to CPRU status post peripheral angiogram via the right radial access site. TR band in place. No hematoma noted. Verbal post cath instructions given, which he understood well. Informed to call for needs. Call light in reach. Assessments and VS per flowsheet record in [facility].
--- NOTE | 2022-12-06 09:45 | SUR.PHASEII ---
IV NS POST CATH IV NS AT 100 ML/HR INFUSING POST CATH ORDERED.
--- NOTE | 2022-12-06 10:45 | SUR.PHASEII ---
TR BAND REMOVAL BEGAN PER PROTOCOL.
--- NOTE | 2022-12-06 13:45 | PC.NURSE ---
1300: TR band removed from patients right wrist. No drainage or hematoma noted. Site cleaned with soap and water, coved with band-aid. Vitals stable. No c/o pain or discomfort. Will continue to monitor.
--- NOTE | 2022-12-06 14:04 | PC.NURSE ---
1400: Discharge orders received. Dressings to patients right wrist and right groin clean, dry, et intact. No drainage or hematoma noted. Vitals stable. No c/o pain or discomfort. IV and cortez catheter removed. Discharge instructions reviewed with patient. Patient verbalized understanding of all teaching. Follow up appointments made. Patient discharged home via wheel chair in private vehicle.
== END 2022-12-06 14:15 | disposition home or self-care (01) ==
PROVIDERS: PCP Family Medicine; Visit Provider Internal Medicine
DX: I73.9 Peripheral vascular disease, unspecified (principal); I10 Essential (primary) hypertension; F17.210 Nicotine dependence, cigarettes, uncomplicated; E78.2 Mixed hyperlipidemia
CPT/HCPCS: 36415; 51702; 75625; 75716; 96361; 96365; 99152; 99153; C1769; C1887; C1894; J1644; J2250; J3010; J3490; J7030; Q0163; Q9967

== ENCOUNTER → 2022-12-14 11:00 | Outpatient (BNVA) | payer MEDICARE, OTHER, SELFPAY | PROVIDERS: PCP Family Medicine; Visit Provider Nurse Practitioner Family | DX: I73.9 Peripheral vascular disease, unspecified (principal) | CPT/HCPCS: 80048; 99214 ==

== ENCOUNTER → 2023-01-03 13:47 | Outpatient (BNVA) | payer MEDICARE, OTHER, SELFPAY | PROVIDERS: PCP Family Medicine; Visit Provider Family Medicine | DX: Z20.822 Contact with and (suspected) exposure to COVID-19 (principal); R43.2 Parageusia | CPT/HCPCS: 87426 ==

== ENCOUNTER → 2023-02-20 13:21 | Outpatient (BNVA) | payer MEDICARE, OTHER, SELFPAY | PROVIDERS: PCP Family Medicine; Visit Provider Internal Medicine | DX: I73.9 Peripheral vascular disease, unspecified (principal); I10 Essential (primary) hypertension; E78.2 Mixed hyperlipidemia; F17.210 Nicotine dependence, cigarettes, uncomplicated | CPT/HCPCS: 99214 ==

== ENCOUNTER → 2023-03-18 15:28 | Outpatient (BNVA) | payer MEDICARE, OTHER, SELFPAY | PROVIDERS: PCP Family Medicine; Visit Provider Family Medicine | DX: K59.09 Other constipation (principal); I10 Essential (primary) hypertension; E78.5 Hyperlipidemia, unspecified | CPT/HCPCS: 80053; 80061; 84443; 85025 ==

== ENCOUNTER 2023-06-27 09:16 | Outpatient (CLI) | payer MEDICARE, OTHER, SELFPAY ==
--- NOTE | 2023-06-27 09:31 | CTR_ITS ---
PROCEDURE INFORMATION: Exam: CTA Abdominal Aorta and Bilateral Lower Extremities (Run-off) With Contrast Exam date and time: 06/27/2023 10:16 AM Age: 72 years old Clinical indication: Condition or disease; Other: Aortoiliac occlusive disease in bilateral legs. ; Additional info: Aortoiliac occlusive dz TECHNIQUE: Imaging protocol: Computed tomographic angiography of the of the abdominal aorta, pelvis and bilateral lower extremities with contrast. 3D rendering (Not supervised by radiologist): MIP and/or 3D reconstructed images were created by the technologist. Radiation optimization: All CT scans at this facility use at least one of these dose optimization techniques: automated exposure control; mA and/or kV adjustment per patient size (includes targeted exams where dose is matched to clinical indication); or iterative reconstruction. Contrast material: OMNIPAQUE 350; Contrast volume: 95 ml; Contrast route: INTRAVENOUS (IV); REPORTING DATA: Count of CT and Cardiac NM exams in prior 12 months: This patient has received 0 known CTs and 0 known cardiac nuclear medicine studies in the 12 months prior to the current study. 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 Celiac trunk and mesenteric arteries: No occlusion or significant stenosis. Renal arteries: No occlusion or significant stenosis. Right iliac arteries: Diffuse atherosclerotic changes and ectasia of the right common iliac artery. Right external iliac artery is occluded. Right femoral/popliteal arteries: Right common femoral artery profunda femoris are patent. Scattered atherosclerotic changes right SFA and right popliteal artery with mild stenosis. Right infrapopliteal arteries: Right tibial-peroneal trunk is partially calcified with some stenosis. Anterior tibial artery is diffusely calcified. Two vessel runoff via the posterior tibial artery and peroneal artery. Plantar arch is present. Dorsalis pedis not visible. Left iliac arteries: Diffuse atherosclerotic changes left common iliac artery. Left external iliac artery is occluded. The a Left femoral/popliteal arteries: Moderate stenosis left common femoral artery. Profundus femoris is diminutive in stature but patent. Scattered atherosclerotic changes left SFA a with mild stenosis. Diffuse atherosclerotic changes left popliteal artery with moderate stenosis. Left infrapopliteal arteries: Left tibial-peroneal trunk is calcified and narrowed. Two vessel runoff via the posterior tibial and peroneal artery. Plantar arch and dorsalis pedis not visualized. Lungs: There are minor atelectatic changes at the lung bases. Liver: Liver is somewhat inhomogeneous in attenuation presumed secondary to focal fatty infiltration. Multiple benign-appearing liver cysts measuring up to 3 cm. Gallbladder and bile ducts: Gallbladder mildly distended with multiple small gallstones within the dependent portion. Bile ducts are not dilated. Pancreas: Unremarkable. Main pancreatic duct is not significantly dilated. Spleen: Normal. No splenomegaly. Adrenal glands: Normal. No mass. Kidneys and ureters: Normal. No mass. Stomach and bowel: Multiple diverticuli most pronounced within the sigmoid colon. No evidence of acute diverticulitis. Moderate degree of retained stool throughout the large bowel. Appendix: No evidence of appendicitis. Urinary bladder: Urinary bladder is collapsed limiting assessment. There is however diffuse bladder wall thickening with mucosal hyperenhancement that has become more apparent on today's study and raises possibility of ongoing cystitis. There is also a moderate-sized bladder diverticulum arising from the posterior bladder margin unchanged. Reproductive: Unremarkable as visualized. Intraperitoneal space: Large epigastric ventral wall hernia containing small bowel loops without evidence of obstruction or strangulation. Lymph nodes: No lymphadenopathy. Bones/joints: Interval development of destructive arthropathy left hip joint with fragmentation in marked deformity of the left femoral head and surrounding encapsulated joint effusion with synovial thickening raising possibility of septic joint. Soft tissues: Small fat containing left inguinal hernia decreased in size from previous exam. CT/CT angio abd aorta runof [id number] IMPRESSION: 1. 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 2. Occlusion of right external iliac with reconstitution right common femoral artery. Mild atherosclerotic changes right SFA and popliteal artery. Two vessel runoff distally. 3. Occlusion of the left external iliac artery with reconstitution of a narrowed common femoral artery. Atherosclerotic changes with mild stenosis left SFA and moderate stenosis left popliteal artery. Two vessel runoff distally. 4. Destructive arthropathy left hip joint resulting in marked deformity left femoral head. 5. Large epigastric ventral wall hernia containing cluster of small bowel loops without evidence of obstruction. 6. Moderate-sized bladder wall diverticulum with bladder wall changes suggestive of ongoing cystitis. Please correlate clinically. 7. Colonic diverticulosis. No evidence of acute diverticulitis. 8. Cholelithiasis without evidence of acute cholecystitis. 9. Additional nonemergent findings as above.
[2023-06-27 10:06] LABS: Blood Urea Nitrogen 15 mg/dL (8-23)
[2023-06-27] MEDS: iohexol 350 mg/mL 500 mL Btl (per mL) IV (10:27)
== END 2023-06-27 09:17 | disposition home or self-care (01) ==
PROVIDERS: PCP Family Medicine; Visit Provider Surgery
DX: I74.5 Embolism and thrombosis of iliac artery (principal); I71.40 Abdominal aortic aneurysm, without rupture, unspecified; I70.203 Unspecified atherosclerosis of native arteries of extremities, bilateral legs; M12.852 Other specific arthropathies, not elsewhere classified, left hip; K43.9 Ventral hernia without obstruction or gangrene; N32.3 Diverticulum of bladder; K57.90 Diverticulosis of intestine, part unspecified, without perforation or abscess without bleeding; K80.20 Calculus of gallbladder without cholecystitis without obstruction
CPT/HCPCS: 75635; 82565; 84520; Q9967

== ENCOUNTER → 2023-08-06 10:28 | Outpatient (BNVA) | payer MEDICARE, OTHER, SELFPAY | PROVIDERS: PCP Family Medicine; Visit Provider Family Medicine | DX: M21.852 Other specified acquired deformities of left thigh (principal); E78.5 Hyperlipidemia, unspecified; I10 Essential (primary) hypertension | CPT/HCPCS: 80053; 80061; 84443; 85025 ==

== ENCOUNTER 2023-08-09 15:48 | Outpatient (CLI) | payer MEDICARE, OTHER, SELFPAY ==
--- NOTE | 2023-08-09 16:00 | MR_ITS ---
WS: [id number] MRI LEFT HIP WITHOUT CONTRAST. COMPARISON: CT angiogram 06/27/2023 and prior lumbar spine radiograph 03/21/2021. Multiplanar, multisequence imaging is performed without contrast. As noted on the CT angiogram from 06/27/2023 there is a markedly abnormal LEFT hip joint and femoral h ead. There is a large amount of fluid surrounding the destroyed femoral head. Destruction and remodeling of the femoral head. There is flattening of the femoral head and partial l ateral subluxation. There is an osseous fragment in the joint. Marrow edema in the proximal LEFT femu r and the adjacent acetabulum. Loss of the normal cartilage surrounding the LEFT humeral head and the LEFT acetabulum. No contrast was given for this examination. Similar findings of the LEFT hip joint were described on 06/27/2023 no obvious progression since that examination. No contrast is given for today's exam. Atherosclerotic changes are noted at the aortic bifurcation. No lymph nodes are identified. Moderate diverticular burden. LEFT inguinal hernia contains GI tract. There is no obstruction. IMPRESSION: 1. Markedly abnormal LEFT hip joint. Destruction and remodeling of the LEFT femoral head with partial lateral subluxation and large joint effusion. Additional edema within the proximal femur and the diallo tabulum concerning for osteomyelitis. These findings are most consistent with septic joint with destr uction and possible osteomyelitis. Similar to the prior CT of 06/27/2023. Consider additional MRI eval uation. Recommend MRI evaluation of the LEFT hip with contrast. 2. LEFT inguinal hernia containing colon but no obstruction. 3. Moderate diverticular burden. Notified Ketty Sapp MD at 08/12/2023 7:48 AM.
== END 2023-08-09 15:49 | disposition home or self-care (01) ==
PROVIDERS: PCP Family Medicine; Visit Provider Family Medicine
DX: M25.552 Pain in left hip (principal); R93.6 Abnormal findings on diagnostic imaging of limbs; R93.89 Abnormal findings on diagnostic imaging of other specified body structures; K40.90 Unilateral inguinal hernia, without obstruction or gangrene, not specified as recurrent; K57.90 Diverticulosis of intestine, part unspecified, without perforation or abscess without bleeding
CPT/HCPCS: 73721

== ENCOUNTER 2023-08-14 11:42 | Day surgery (SDC) | payer MEDICARE, OTHER, SELFPAY ==
[2023-08-14] VITALS (9 sets, daily range): BP systolic 156–174; BP diastolic 84–101; PULSE 77–90; RESP 16–27; TEMP 36.9; O2SAT 98–100; BMI 20.9
--- NOTE | 2023-08-14 12:07 | US_ITS ---
WS: [id number] ULTRASOUND-GUIDED LEFT HIP ASPIRATION INDICATION: LEFT hip effusion TECHNIQUE: LEFT hip aspiration FINDINGS: The procedure including risks, benefits, and complications were discussed with the patient who agreed to proceed. Patient was prepped and draped in usual sterile fashion. After 1% lidocaine, u sing ultrasound guidance, an 18-gauge needle was advanced into the LEFT hip joint. Joint capsule appe ars thickened and fibrotic. Only a small amount of bloody fluid was aspirated. Next a 4 Czech yueh c atheter was advanced into the LEFT hip joint with an additional 0.5-1 cc of bloody fluid aspirated. F luid was sent for Gram stain. IMPRESSION: Small amount of bloody fluid was aspirated from the LEFT hip and sent for Gram stain.
[2023-08-14] MEDS: sodium chloride 0.9% 1,000 ML 30 ML IV (12:26)
[2023-08-14 12:35] LABS: INR 0.97 (0.8-1.2)
[2023-08-14] MEDS: HYDROcodone-acetaminophen 5-325 mg Tablet 1 TAB PO (14:10)
== END 2023-08-14 14:20 | disposition home or self-care (01) ==
PROVIDERS: Radiology Neuroradiology; PCP Family Medicine; Visit Provider Family Medicine
DX: M25.452 Effusion, left hip (principal)
CPT/HCPCS: 10160; 36415; 76942; 85610; 87205; J7030

== ENCOUNTER → 2023-08-28 08:09 | Outpatient (BNVA) | payer MEDICARE, OTHER, SELFPAY | PROVIDERS: PCP Family Medicine; Visit Provider Specialist | DX: M21.852 Other specified acquired deformities of left thigh (principal); M25.552 Pain in left hip | CPT/HCPCS: 73502; 99205 ==

== ENCOUNTER 2023-09-12 11:22 | Outpatient (CLI) | payer MEDICARE, OTHER, SELFPAY ==
[2023-09-12] VITALS (14 sets, daily range): BP systolic 118–158; BP diastolic 50–88; PULSE 79–92; RESP 16–22; TEMP 36.3–36.4; O2SAT 93–99; BMI 21.6
--- NOTE | 2023-09-12 | CT_ITS ---
WS: [id number] CT-GUIDED LEFT HIP ASPIRATION/BIOPSY CLINICAL INFORMATION: DEFORMITY LT HIP, R/O INFECTION COMPARISON: MRI hip 08/09/2023 DLP: 193 TECHNIQUE: Conscious sedation was utilized. The procedure including risk, benefits, and complications were discussed with the patient who agreed to proceed. Timeout was performed. Using sterile techniqu e, the patient was prepped and draped in the usual sterile fashion. Patient was positioned RIGHT-side -down and CT images were obtained through the LEFT hip. The LEFT femoral head and joint space was jannie ected. After 1% lidocaine using fluoroscopic guidance, a 19-gauge coaxial needle was advanced into th e hip joint. Approximately 5 samples of the thickened joint capsule obtained. Next approximately 20-3 0 cc of bloody fluid was aspirated. Subsequently, using an osteocyte biopsy device 3 cores were obtained from the femoral head and neck i n the area of destruction and bone marrow signal abnormality. No Immediate complications. Patient was discharged 1 hour post procedure in stable condition. IMPRESSION: 1. 20-30 cc of bloody fluid aspirated from the LEFT hip joint. 2. 5-6 cores of the thickened joint capsule were obtained. 3. In addition, 3 bone core samples of the femoral head and neck were obtained. 4. Patient was discharged 2 hours postprocedure in stable condition.
[2023-09-12] MEDS: sodium chloride 0.9% 1,000 ML 30 ML IV (11:54)
[2023-09-12] MEDS: fentaNYL 50 mcg/mL INJ 2mL IVP (13:43)
[2023-09-12] MEDS: midazolam 1 mg/mL INJ 2 mL 2 MG IVP (13:44)
[2023-09-12 15:23] LABS: Body Fluid Polynuclear #Cells 0.143; Body Fluid WBC 434 /uL; Monocytes # Body Fluid 0.291
[2023-09-12 16:06] LABS: Apprearance, Body Fluid CLOUDY; Color, Body Fluid RED
[2023-09-12 16:07] LABS: Fluid Laterality LEFT HIP; PATH Referral YES
[2023-09-12 16:10] LABS: Cyto Order Verification No Order
== END 2023-09-12 15:20 | disposition home or self-care (01) ==
PROVIDERS: Radiology Neuroradiology; PCP Family Medicine; Visit Provider Specialist
DX: M21.852 Other specified acquired deformities of left thigh (principal); Z11.9 Encounter for screening for infectious and parasitic diseases, unspecified
CPT/HCPCS: 20206; 20225; 77012; 80503; 85610; 87205; 88307; 88311; 89050; 96374; 96375; 99152; 99153; J2250; J3010; J7030

== ENCOUNTER 2023-09-25 09:55 | Outpatient (CLI) | payer MEDICARE, OTHER, SELFPAY ==
--- NOTE | 2023-09-25 10:15 | MR_ITS ---
WS: [id number] EXAMINATION: MR hip LT wo/w con [id number] ORDER DATE: 09/25/2023 10:53 AM COMPARISON: MRI 08/09/2023 HISTORY: deformity of left femur, left hip pain CONTRAST: None. TECHNIQUE: Coronal STIR of the Pelvis. Coronal proton density, coronal T1, axial T2 fat sat, axial T1 , sagittal T2 fat sat, and sagittal T1 performed of the hip. After contrast, axial T1 fat sat, coron al T1 fat sat, and sagittal T1 fat sat were performed. FINDINGS: There is chronic appearing destruction and collapse of the LEFT femoral head with fragmentation uncha nged in appearance since the prior MRI 08/09/2023. Flattening and fragmentation of the femoral head. H igh riding LEFT femur with lateral subluxation unchanged from previous. Bone marrow signal normality involving the adjacent acetabulum with sclerosis and subchondral cystic change compatible with degene rative changes. Marginal sclerosis in the residual femoral head and neck. Diffuse synovial thickening with reactive enhancement also involving the acetabulum. Recent CT-guided bone and synovial biopsy demonstrates no evidence of infection or osteomyelitis. 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 Reactive degenerative changes involving the adjacent acetabulum. Bone marrow signal in the proximal femoral shaft is normal appearance. Normal bone marrow signal sign al in the RIGHT femur. Normal bone marrow signal in the sacrum and remainder of bony pelvis. Fat-cont aining LEFT inguinal hernia. Sigmoid diverticulosis. IMPRESSION: 1. No significant change in imaging appearance of the LEFT hip compared to 08/09/2023. 2. 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 3. Fat-containing LEFT inguinal hernia.
[2023-09-25] MEDS: gadobenate dimeglumine 20 mL vial IV (11:21)
== END 2023-09-25 09:56 | disposition home or self-care (01) ==
LOC: RAD 09:55
PROVIDERS: PCP Family Medicine; Visit Provider Specialist
DX: M21.852 Other specified acquired deformities of left thigh (principal); M79.605 Pain in left leg; M25.552 Pain in left hip
CPT/HCPCS: 73723; A9577

== ENCOUNTER → 2023-10-14 08:05 | Outpatient (BNVA) | payer MEDICARE, OTHER, SELFPAY | PROVIDERS: PCP Family Medicine; Visit Provider Specialist | DX: M87.052 Idiopathic aseptic necrosis of left femur (principal); M21.852 Other specified acquired deformities of left thigh | CPT/HCPCS: 99215 ==

== ENCOUNTER 2023-10-23 10:38 | Outpatient (CLI) | payer MEDICARE, OTHER, SELFPAY ==
[2023-10-23 10:53] LABS: Basophils # 0.1 10^3/uL (0.0-0.1); Basophils % 0.8 %; Eosinophils # 0.2 10^3/uL (0.0-0.8); Eosinophils % 3.2 %; Hematocrit 43.1 % (37-53); Lymphocytes # 1.2 10^3/uL (0.8-4.8); Lymphocytes % 18.5 %; Mean Corpuscular HGB Conc 32.7 g/dL (30-55); Mean Corpuscular Hemoglobin 30.7 pg (27-33); Mean Corpuscular Volume 93.7 fl (82-101); Mean Platelet Volume 8.5 fL (7.4-10.4); Monocytes # 0.6 10^3/uL (0.2-0.9); Monocytes % 9.2 %; Neutrophils # 4.28 10^3/uL (1.8-7.7); Neutrophils % 68.1 %; Nucleated Red Blood Cells % 0 %; Platelet Count 287 10^3/cmm (157-399); Red Cell Distribution Width 13.2 % (12.1-15.1); White Blood Count 6.28 10^3/uL (3.29-11.43)
[2023-10-23 11:00] LABS: Erythrocyte Sedimentation Rate 12 mm/hr (0-10)
[2023-10-23 11:11] LABS: Alanine Aminotransferase 7 U/L (0-41); Albumin Level 4.1 g/dL (3.5-5.2); Alkaline Phosphatase 78 U/L (40-130); Anion Gap 15.4 (5-19); Aspartate Amino Transferase 13 U/L (0-40); Blood Urea Nitrogen 19 mg/dL (8-23); Calcium 9.4 mg/dL (8.5-10.5); Carbon Dioxide 25 mmol/L (22-29); Chloride 105 mmol/L (98-107); Glucose 96 mg/dL (65-115); Osmolality Calculated 294 mOsm/kg (285-295); Potassium 4.4 mmol/L (3.5-5.1); Sodium 141 mmol/L (136-145); Total Bilirubin 0.3 mg/dL (0.15-1.2); Total Protein 7.1 g/dL (6.6-8.7)
== END 2023-10-23 10:39 | disposition home or self-care (01) ==
LOC: LAB 10:39
PROVIDERS: PCP Family Medicine; Visit Provider Specialist
DX: M21.852 Other specified acquired deformities of left thigh (principal); Z79.899 Other long term (current) drug therapy
CPT/HCPCS: 36415; 80053; 85025; 85651; 86140

== ENCOUNTER → 2023-10-25 10:44 | Outpatient (BNVA) | payer MEDICARE, OTHER, SELFPAY | PROVIDERS: PCP Family Medicine; Visit Provider Family Medicine | DX: Z01.818 Encounter for other preprocedural examination (principal); R53.1 Weakness | CPT/HCPCS: 81003; 87077; 87086; 87184 ==

== ENCOUNTER 2023-10-31 13:39 | Inpatient (IN) | payer MEDICARE, OTHER, SELFPAY ==
[2023-10-31] VITALS (24 sets, daily range): BP systolic 56–143; BP diastolic 41–82; PULSE 77–98; RESP 15–18; TEMP 36.1–36.8; O2SAT 92–99; BMI 22.1
[2023-10-31] MEDS: acetaminophen 1,000 MG/100 ML PIGGYBACK 400 MG IV (06:26)
[2023-10-31] MEDS: sodium chloride 0.9% 1,000 ML 30 ML IV (06:26)
[2023-10-31] MEDS: CELEcoxib 200 mg Capsule 400 MG PO (06:31)
[2023-10-31] MEDS: gabapentin 300 mg Capsule PO (06:41)
--- NOTE | 2023-10-31 06:42 | ANES.PREANE2 ---
Pre-Anesthetic Assessment Height/Weight: Height 1.7 m Weight 63.957 kg Temp Pulse Resp BP Pulse Ox O2 Del Method 97.8 F 91 16 143/82 98 Room Air 10/31/23 06:02 10/31/23 06:02 10/31/23 06:02 10/31/23 06:02 10/31/23 06:02 10/31/23 06:02 Operation Date: 10/31/23 07:00 Proposed Procedures p LEFT TOTAL HIP ARTHROPLASTY 72590,M16.9(Left) - Taylor Dahl MD Familial anesthetic complications: None Was Beta Roxy taken within 24 hours: N/A Was Clonidine taken within 24 hours: N/A Last intake: Intake Last Liquid Date 10/30/23 Last Liquid Time 23:30 Last Solid Date 10/30/23 Last Solid Time 21:00 Social Tobacco and No alcohol Exam alert, oriented x 3, clear to auscultation bilaterally and regular rate & rhythm Airway Dentition: full Pulmonary Chronic Obstructive Pulmonary Disease CV/HEM Peripheral Vascular Disease (he and his states he last look cilostazol 1 week ago) Metabolic Hyperlipidemia Anesthetic Plan ASA status: 3 Anesthesia: Regional (specify below) Risk of > 500 ml blood loss (7ml/kg in children): Yes, adequate IV access and fluids planned Medications/Allergies Home Medications Medication Instructions Recorded Confirmed Last Taken Type latanoprost 0.005 % eye drops 1 drp ophthalmic (eye) DAILY 01/10/21 10/31/23 10/30/23 History cilostazol 50 mg tablet 50 mg PO BID #180 tabs 02/20/23 10/31/23 09/06/23 Rx rollater walker with seat #1 ea 05/06/23 10/14/23 Unknown Rx albuterol sulfate 90 mcg/actuation 1 puff inhalation QID PRN 07/26/23 10/31/23 10/30/23 Rx aerosol inhaler (Ventolin HFA) shortness of breath or wheezing #8.5 grams budesonide-formoterol HFA 80 2 puff inhalation BID 08/12/23 10/31/23 09/11/23 History mcg-4.5 mcg/actuation aerosol inhaler (Symbicort) cyclobenzaprine 10 mg tablet 10 mg PO Q8H PRN Spasms 08/12/23 10/31/23 09/11/23 History omeprazole 20 mg capsule,delayed 20 mg PO DAILY 08/12/23 10/31/23 10/30/23 History release valsartan 320 mg tablet 320 mg PO DAILY 08/12/23 10/31/23 10/30/23 History acetaminophen 650 mg 650 mg PO Q8H PRN Pain 09/10/23 10/31/23 09/11/23 History tablet,extended release amlodipine 10 mg tablet 5 mg PO DAILY 09/10/23 10/31/23 10/31/23 History celecoxib 200 mg capsule (Celebrex) 200 mg PO BID 09/10/23 10/31/23 10/30/23 History hydrocodone 5 mg-acetaminophen 325 1 tab PO TID PRN pain 30 days #90 10/23/23 10/31/23 10/30/23 Rx mg tablet tabs rosuvastatin 10 mg tablet (Crestor) 10 mg PO DAILY #30 tabs 10/23/23 10/31/23 10/30/23 Rx ciprofloxacin HCl 500 mg tablet 500 mg PO BID #14 tabs 10/28/23 10/31/23 10/31/23 Rx Allergies Allergy/AdvReac Type Severity Reaction Status Date / Time No Known Allergies Allergy Verified 10/25/23 10:36 Current Medications Generic Name Dose Route Start Last Admin Trade Name Freq PRN Reason Stop Dose Admin Sodium Chloride 1,000 mls @ 30 mls/hr 10/31/23 05:45 10/31/23 06:26 Sodium Chloride 0.9% IV 11/01/23 05:44 30 mls/hr .Q24H MINDI Administration PFSH Anesthesia Medical History Peripheral arterial disease Abdominal hernia Glaucoma Chronic constipation Male urinary stress incontinence Panlobular emphysema Acute depression Essential (primary) hypertension Hyperlipidemia, unspecified Chronic radicular low back pain Adenocarcinoma of prostate (~2012) Surgical History Hx of detached retina repair right x 3 Hx of cataract surgery Hx of prostatectomy Hx of right inguinal hernia repair Hx of removal of neck cyst Family History Brother Cancer prostate, colon Chronic kidney disease (CKD) Hypertension Diabetes Father Chronic kidney disease (CKD) Social History Smoking and tobacco/nicotine status: current every day tobacco/nicotine user (12 - PPD) cigarettes Packs smoked per day: 1 Years cigarettes smoked: 30 Alcohol intake: never Substance/Drug Use: never Lives independently: Yes Household members: none Housing: Apartment Marital status: Current occupational status: retired Current gender identity: Male Data Anesthesia Cardiac Studies: No Data to Display
--- NOTE | 2023-10-31 07:00 | P.HPUD_ITS ---
Surgery/Procedure H&P Update DATE OF PROCEDURE: October 31, 2023 DATE H&P PERFORMED: 10/25/23 H&P UPDATE INFORMATION: I have reviewed H&P completed within last 30 days, I have examined patient prior to procedure, No changes to prior documentation and H&P is in [facility] [place] EMR on date indicated PLANNED PROCEDURE: Operation Date: 10/31/23 07:00 Proposed Procedures p LEFT TOTAL HIP ARTHROPLASTY 23740,M16.9(Left) - Taylor Dahl MD Related Problem List Diagnoses (1) Avascular necrosis of bone of left hip: (2) Deformity of left femur:
[2023-10-31] MEDS: ceFAZolin 2,000 MG in sodium chloride 0.9% (plus) 50 ML 100 MG IV ×3 (07:01→22:25)
[2023-10-31] MEDS: ceFAZolin 1,000 mg SDV 1000 MG IRRIGATION (08:08)
[2023-10-31] MEDS: vancomycin 1,000 MG SDV 1000 MG XX (08:08)
[2023-10-31] MEDS: thrombin 5,000 unit SDV 5000 UNIT XX (08:09)
[2023-10-31] MEDS: fentaNYL 50 mcg/mL INJ 2mL IVP (10:41)
--- NOTE | 2023-10-31 11:06 | XR_ITS ---
WS: [id number] Exam: XR pelvis 1-2V* [id number] Date/Time of Exam: 10/31/2023 11:09 AM Reason For Exam: S/P BENJAMIN Comparison 08/28/2023. LEFT total hip prosthesis is noted. Postoperative changes in the adjacent soft tissues. IMPRESSION: 1. LEFT hip prosthesis in place as noted above.
--- NOTE | 2023-10-31 11:37 | P.OP_ITS ---
Operative Report Date of procedure: October 31, 2023 Pre-op diagnosis: Severe degenerative osteoarthritis of the right hip secondary to avascular necrosis Post-op diagnosis: Severe degenerative osteoarthritis of the right hip secondary to avascular necrosis Post-op findings: Severe avascular necrosis with complete femoral head collapse and large osteophytes Procedure done: Right Total Hip Arthroplasty Implants: The [place] total hip system with a size 52 mm by E alpha code Trident II Tritanium acetabular shell with an MDM liner size 42 mm inner diameter by E alpha code.? A size 7 Accolade II 132? neck angle hip stem with a size 28 mm x - 2.7 mm femoral head and a latter-day MDM X3 insert size 28 mm x 42E Specimens removed/disposition: Femoral Head to pathology for microscopic evaluation. Multiple cultures of joint fluid and femoral head Surgeon: Taylor Dahl MD Movie Shot Camera Operator: [facility] Operating Room Technicians Anesthesia: Spinal (With MAC, ASA 3) Estimated blood loss (mL): 350 IV fluids (mL): 1,300 Urine output (mL): 600 Complications: None Findings: Severe Osteoarthritis Right Femoral Head with collapse and large effusion. The hip was stable to toe hang and external rotation. It was stable at 90 degrees of flexion with 80 degrees of internal rotation as well as 30 degrees of adduction. Condition: stable Disposition: PACU (Then admitted under observation status for pain management and physical therapy) Brief History: This is an established 72 year old male patient here today for re-evaluation of left hip pain. Patient has been dealing with left hip pain for over a year. He states his pain this morning is 8 out of 10, but the pain can go higher than that. Patient takes hydrocodone and extra strength Tylenol for his hip pain. He had an MRI on 09/25/[address] with biopsy on 09/12/23 and would like to go over the results. Procedure: Patient was brought to the operating theater.? He was transferred to the operating room table and subsequently administered a spinal anesthesia with MAC, ASA 3.? Following administration of adequate anesthesia, the patient was placed in full lateral position and held in position with a pegboard.? The patient's right lower extremity was then prepped and draped in usual fashion utilizing DuraPrep.? It was draped free.? Following prepping and draping, a surgical pause was performed.? At the time of surgical pause, we identified the site and side of surgery.? We also identified the patient and preoperative surgical markings.?The patient's operative leg was compared to the opposite leg.? Confirmation was made of equipment availability.? Additionally, the patient's preoperative IV antibiotic, Ancef 2 gram.? X-rays were also reviewed. TXA was not given. Following the surgical pause, an incision was made centering over the patient's greater trochanter continuing proximally and distally as necessary to allow access to the hip joint.? Dissection continued through skin and soft tissues using a scalpel, and hemostasis was obtained using electrocautery. The tensor fascia sydney was identified and incised longitudinally.? Sciatic nerve was identified and protected throughout the surgical procedure.? A Charnley U retr actor was placed after the tensor fascia sydney had been incised longitudinally, and the sciatic nerve had been identified.? The hip was internally rotated, and the piriformis muscle was identified and tagged. Piriformis muscle along with the remaining short external rotators were then incised from the posterior aspect of the hip joint.? These were retracted posteriorly.? The capsule was entered in a T-type fashion with the edges being tagged, and subsequently the hip was dislocated.? The labrum was excised with further excision accomplished once the femoral head was removed.? Following hip dislocation, a femoral neck osteotomy was accomplished in the appropriate position.? The head was measured, but it was quite deformed.? Cultures were obtained from synovial fluid and the femoral head. The femoral head was sent for microscopic evaluation. We then evaluated the acetabulum. The femur was retracted anteriorly.? Soft tissues were retracted, and the labrum was removed.? Labrum was noted to be quite large and deformed. We then began reaming.? Once the femoral head was removed, there was noted to be significant loss of cartilage over the head with the previously noted deformity and ca rtilage loss within the acetabulum.? We reamed to a size 51 to allow for a size 52 acetabular shell.? The acetabulum was impacted into position.? The MDM liner was then impacted into position with care being taken to assure it seated appropriately.? It was noted that the acetabulum matched the bony anatomy.? The cup was noted to seat nicely and had good fixation upon impact. Large osteophytes were removed circumferentially about the acetabulum following cup insertion. Attention was directed to the proximal femur.? The proximal femur was lifted out of the wound.? A canal finder was passed after the box chisel.? The reamer was used to lateralize.? We then began broaching. We broached sequentially and had excellent fit and fill with the size 7 broach. ? A trial reduction was attempted with a +0 mm femoral head initially, but it was not able to be reduced. Because of this, we then placed a -4 mm femoral head which initially was difficult to reduce, but following movement of the hip, it was noted to loosen up slightly. Therefore, we elected to again perform trial reduction with the +0 mm, but it was unable to be reduced. Decision was made to implant the -2.7 mm femoral head.? With this construct, the hip was noted to be stable, and leg length was felt to be equal.? The final construct included a -2.7 mm femoral head with the above-noted stem and acetabulum. With this in place, we had the above stabilities.? This was felt to be excellent stability. Therefore, trial components were removed after the hip was dislocated.? The size 7 Accolade II 132? neck angle stem was impacted into position without difficulty and onto this was placed a -2.7 mm x 28 mm femoral head which had been assembled into the MDM insert size 42E.? With a -2.7 mm femoral head, we had the above- noted stability.? The stem was noted to seat nicely prior to placement of the femoral head.? The wound was copiously irrigated with 20 mL of Betadine and 500 mL of normal saline mixed together.? Subsequently, we suctioned this out and irrigated the wound copiously with lactated Ringer's.? At this time, with all components in appropriate position, the hip was reduced.? Following reduction of the prosthesis once again, we confirmed the stability of the hip.? Leg lengths were also felt to be satisfactory. Being satisfied with the prosthesis, attention was directed to closure.? Closure was accomplished with 0 Vicryl in the capsular tissues.? Piriformis was reattached with 0 Vicryl as well.? Tensor fascia sydney was closed with 0 Vicryl in an interrupted fashion.? The subcutaneous tissues were closed with combination of 0 Vicryl and 2-0 Monocryl.? Vancomycin powder and a Gelfoam thrombin mixture was placed into the wound as well.? The skin was closed with a running 3-0 Monocryl followed by Dermabond Prineo followed by OpSite.? The patient was placed in an abduction pillow.? He was returned the Recovery Room in a satisfactory condition and will be discharged to the floor for postoperative rehabilitation and pain management.? There were no complications or specimens. Related Problem List Diagnoses (1) Avascular necrosis of bone of left hip: (2) Deformity of left femur:
--- NOTE | 2023-10-31 13:14 | ANE.PACU2 ---
Inpatient post-anesthesia follow up: Airway intact: Yes Vital signs: Temperature 97 F Pulse Rate 77 Respiratory Rate 15 Blood Pressure 88/57 Pulse Oximetry 96 Oxygen Delivery Me thod Room Air Oxygen Flow Rate 6 Fraction of Inspir ed Oxygen Hydration adequate: Yes Nausea and vomiting: No Pain level: 1 Mental status: Baseline
[2023-10-31] MEDS: oxyCODONE 5 mg IR Tab/Cap PO (15:17)
[2023-10-31] MEDS: CELEcoxib 200 mg Capsule PO (15:19)
[2023-10-31] MEDS: chlorhexidine gluconate 0.12% Btl 473 mL 30 ML MUCOUS MEM (15:20)
[2023-10-31] MEDS: albuterol 2.5 mg/3 mL Neb INHALATION (15:37)
[2023-10-31] MEDS: mupirocin oint 22 gm 1 APPLIC NASAL (17:59)
[2023-10-31] MEDS: cilostazol 100 mg Tablet 50 MG PO (18:00)
[2023-10-31] MEDS: sennosides-docusate Tablet 2 TAB PO (18:00)
[2023-10-31] MEDS: iron polysaccharide complex 150 mg Capsule PO (18:00)
[2023-10-31] MEDS: sodium chloride 0.9% 1,000 ML 500 ML IV (21:16)
[2023-11-01] VITALS (18 sets, daily range): BP systolic 83–98; BP diastolic 43–65; PULSE 80–109; RESP 16–22; TEMP 36.4–36.9; O2SAT 91–99
[2023-11-01] MEDS: CELEcoxib 200 mg Capsule PO ×2 (01:14→14:54)
[2023-11-01 02:32] LABS: Hematocrit 29.1 % (37-53); Mean Corpuscular Hemoglobin 30.8 pg (27-33); Mean Corpuscular Volume 93.3 fl (82-101); Mean Platelet Volume 8.5 fL (7.4-10.4); Platelet Count 181 10^3/cmm (157-399); Red Blood Count 3.12 10^6/uL (3.85-5.65); Red Cell Distribution Width 13.1 % (12.1-15.1); White Blood Count 5.27 10^3/uL (3.29-11.43)
[2023-11-01] MEDS: sodium chloride 0.9% 500 ML 999 ML IV (02:43)
[2023-11-01 02:49] LABS: Anion Gap 12.8 (5-19); Blood Urea Nitrogen 18 mg/dL (8-23); Calcium 8.4 mg/dL (8.5-10.5); Carbon Dioxide 21 mmol/L (22-29); Chloride 108 mmol/L (98-107); Glucose 141 mg/dL (65-115); Osmolality Calculated 290 mOsm/kg (285-295); Potassium 3.8 mmol/L (3.5-5.1); Sodium 138 mmol/L (136-145)
[2023-11-01 03:06] LABS: Eosinophils 0 %; Lymphocytes 20 %; Monocytes Absolute 0.3 10^3/cmm (0.1-0.6); Platelet Estimate Normal (Normal); Segmented Neutrophils 76 %; Total Cells Counted 100 (0-100)
[2023-11-01] MEDS: ceFAZolin 2,000 MG in sodium chloride 0.9% (plus) 50 ML 100 MG IV (05:19)
[2023-11-01] MEDS: budesonide 0.5 mg/2 mL Neb INHALATION ×2 (07:20→20:11)
[2023-11-01] MEDS: albuterol 2.5 mg/3 mL Neb INHALATION ×4 (07:20→20:11)
--- NOTE | 2023-11-01 08:15 | P.CONIM_ITS ---
Providers/Reason For Consult 2 Consulting Physician/Specialty*: Eric Clark MD Reason for Consult*: Hypotension Requesting Physician: Dr. Dahl Attending Physician: Taylor Dahl MD Primary Care Provider: Ketty Sapp MD History of Present Illness History of Present Illness Juno Sapp is a 73 year old male who underwent a right hip total arthroplasty on 10/31 secondary to arthritis and avascular necrosis. Estimated blood loss was 350 cc. Earlier this morning, there was concern of hypotension. Medicine was consulted for this. Patient was given a fluid bolus. On laboratory it was noted that his hemoglobin was 9.6, down from a baseline of 14.1. He is not dizzy, or short of breath. Following the bolus his blood pressure still down a unit of blood was ordered. During my evaluation he is asymptomatic, and care home through his unit of blood. He denies any chest pain, shortness of breath or dizziness. Review of Systems 2 General: Reports: 10 or more systems reviewed and unremarkable except in HPI and below Card: Denies: chest pain Resp: Denies: dyspnea GI: Denies: abdominal pain Medications/Allergies Home Medications Medication Instructions Recorded Confirmed Last Taken Type latanoprost 0.005 % eye drops 1 drp ophthalmic (eye) DAILY 01/10/21 11/01/23 09/11/23 History cilostazol 50 mg tablet 50 mg PO BID #180 tabs 02/20/23 11/01/23 09/06/23 Rx rollater walker with seat #1 ea 05/06/23 11/01/23 Unknown Rx albuterol sulfate 90 mcg/actuation 1 puff inhalation QID PRN 07/26/23 11/01/23 09/11/23 Rx aerosol inhaler (Ventolin HFA) shortness of breath or wheezing #8.5 grams budesonide-formoterol HFA 80 2 puff inhalation BID 08/12/23 11/01/23 09/11/23 History mcg-4.5 mcg/actuation aerosol inhaler (Symbicort) cyclobenzaprine 10 mg tablet 10 mg PO Q8H PRN Spasms 08/12/23 11/01/23 09/11/23 History omeprazole 20 mg capsule,delayed 20 mg PO DAILY 08/12/23 11/01/23 09/11/23 History release valsartan 320 mg tablet 320 mg PO DAILY 08/12/23 11/01/23 09/11/23 History acetaminophen 650 mg 650 mg PO Q8H PRN Pain 09/10/23 11/01/23 09/11/23 History tablet,extended release amlodipine 10 mg tablet 5 mg PO DAILY 09/10/23 11/01/23 09/12/23 History hydrocodone 5 mg-acetaminophen 325 1 tab PO TID PRN pain 30 days #90 10/23/23 11/01/23 Unknown Rx mg tablet tabs rosuvastatin 10 mg tablet (Crestor) 10 mg PO DAILY #30 tabs 10/23/23 11/01/23 Unknown Rx ciprofloxacin HCl 500 mg tablet 500 mg PO BID #14 tabs 10/28/23 11/01/23 Unknown Rx celecoxib 200 mg capsule (Celebrex) 200 mg PO BID #60 caps 10/31/23 11/01/23 Unknown Rx Allergies Allergy/AdvReac Type Severity Reaction Status Date / Time No Known Allergies Allergy Verified 10/25/23 10:36 Current Medications Generic Name Dose Route Start Last Admin Trade Name Freq PRN Reason Stop Dose Admin Albuterol Sulfate 2.5 mg 10/31/23 16:00 11/01/23 07:20 Albuterol 2.5 Mg/3 Ml Neb INHALATION 2.5 mg QID.RESPIRATORY MINDI Administration Budesonide 0.5 mg 10/31/23 20:00 11/01/23 07:20 Budesonide 0.5 Mg/2 Ml Neb INHALATION 0.5 mg BID.RESPIRATORY MINDI Administration Calcium Carbonate 1,000 mg 10/31/23 18:00 10/31/23 17:59 Calcium Carbonate 500 Mg Chew Tablet PO Not Given BID MINDI Celecoxib 200 mg 10/31/23 14:07 11/01/23 01:14 Celecoxib 200 Mg Capsule PO 200 mg Q12H MINDI Administration Chlorhexidine Gluconate 30 ml 10/31/23 14:07 10/31/23 21:19 Chlorhexidine Gluconate 0.12% Btl 473 Ml MUCOUS MEM Not Given QID MINDI Cilostazol 50 mg 10/31/23 18:00 10/31/23 18:00 Cilostazol 100 Mg Tablet PO 50 mg BID MINDI Administration Mupirocin 1 applic 10/31/23 18:00 10/31/23 17:59 Mupirocin Oint 22 Gm NASAL 11/05/23 17:59 1 applic BID MINDI Administration Protocol Oxycodone HCl 5 mg 10/31/23 11:46 10/31/23 15:17 Oxycodone 5 Mg Ir Tab/Cap PO 5 mg Q4H PRN Administration MODERATE PAIN Polysaccharide Iron Complex 150 mg 10/31/23 18:00 10/31/23 18:00 Iron Polysaccharide Complex 150 Mg Capsule PO 150 mg BIDWM MINDI Administration Senna/Docusate Sodium 2 tab 10/31/23 18:00 10/31/23 18:00 Sennosides-Docusate Tablet PO 2 tab BID MINDI Administration PFSH Acute 2 PFSH: Medical History Peripheral arterial disease Abdominal hernia Glaucoma Chronic constipation Male urinary stress incontinence Panlobular emphysema Acute depression Essential (primary) hypertension Hyperlipidemia, unspecified Chronic radicular low back pain Adenocarcinoma of prostate (~2012) Surgical History Hx of detached retina repair right x 3 Hx of cataract surgery Hx of prostatectomy Hx of right inguinal hernia repair Hx of removal of neck cyst Family History Brother Cancer prostate, colon Chronic kidney disease (CKD) Hypertension Diabetes Father Chronic kidney disease (CKD) Social History Smoking and tobacco/nicotine status: current every day tobacco/nicotine user (1/2 - 1 PPD) cigarettes Packs smoked per day: 1 Years cigarettes smoked: 30 Alcohol intake: never Substance/Drug Use: never Lives independently: Yes Household members: none Housing: Apartment Marital status: Current occupational status: retired Current gender identity: Male Vitals/I&O/Wt Last Vital Signs Temp 98.1 F 11/01/23 07:59 Pulse 96 11/01/23 07:59 Resp 17 11/01/23 07:59 BP 92/54 11/01/23 07:59 Pulse Ox 93 11/01/23 07:59 O2 Del Method Room Air 11/01/23 07:59 O2 Flow Rate 6 10/31/23 10:32 12/14/23 12/15/23 12/15/23 22:59 06:59 14:59 Intake Total 170 / 1920 1600 / 3520 Output Total 400 / 1950 200 / 2150 Balance -230 / -30 1400 / 1370 Weight last 48 hrs Weight 70.42 kg Weight 63.957 kg Weight 63.957 kg Physical Exam 2 Narrative: General exam there is no apparent distress HEENT: Atraumatic normocephalic. Oropharynx clear Neck is supple no lymphadenopathy thyromegaly Cardiovascular regular rate and rhythm, no murmur Lungs clear Abdomen soft Extremities no sinus clubbing edema, left hip with no significant hematoma. Dressing clean and dry Urinary Catheter Management: Robin: Cath Placed During This Visit: yes, but has since been removed by the nurse Reason for Continuing Indwelling Catheter: Acute Urinary Retention or Obstruction Urinary Catheter Date of Insertion: 10/31/23 Urinary Catheter Time of Insertion: 07:25 Date Urinary Catheter Removed: 11/01/23 Time Urinary Catheter Discontinued: 06:00 Data 11/01/23 02:25 11/01/23 02:25 Micro: Microbiology 10/31/23 08:13 Gram Stain - Final Hip - Left 10/31/23 08:41 Gram Stain - Final Hip - Left 10/31/23 08:16 Gram Stain - Final Hip - Left A&P Assessment and plan (1) Hypotension: Patient with significant hypotension He did not respond to IV fluid bolus Secondary to anemia he was transfused 1 unit of packed red blood cells, which is currently being transfused. Check hemoglobin 1 hour following transfusion CBC in the morning along with BMP Discontinue Norvasc, valsartan at this time. Add back his blood pressure recovers. (2) Acute blood loss as cause of postoperative anemia: Patient with acute postoperative blood loss anemia No current evidence of ongoing blood loss See above Plan Postoperative total hip arthroplasty Other medical problems as noted in past medical history Thank you for this consultation Diagnoses Hypotension I95.9 Acute blood loss as cause of postoperative anemia D62 Time Spent (min) 44
[2023-11-01] MEDS: calcium carbonate 500 mg Chew Tablet 1000 MG PO ×2 (08:22→17:56)
[2023-11-01] MEDS: aspirin 325 mg EC Tablet PO (08:22)
[2023-11-01] MEDS: sennosides-docusate Tablet 2 TAB PO ×2 (08:22→17:56)
[2023-11-01] MEDS: atorvastatin 40 mg Tablet PO (08:23)
[2023-11-01] MEDS: pantoprazole DR 40 mg Tablet PO (08:23)
[2023-11-01] MEDS: iron polysaccharide complex 150 mg Capsule PO ×2 (08:23→17:56)
[2023-11-01] MEDS: cholecalciferol (vitamin D3) 1,000 unit Tablet 1000 UNIT PO (08:23)
[2023-11-01] MEDS: multivitamin therapeutic Tablet 1 TAB PO (08:23)
[2023-11-01] MEDS: cilostazol 100 mg Tablet 50 MG PO ×2 (08:23→17:56)
[2023-11-01] MEDS: latanoprost 0.005% Op Soln 2.5 mL Btl 1 DROP EYE-BOTH (08:26)
[2023-11-01] MEDS: mupirocin oint 22 gm 1 APPLIC NASAL ×2 (08:26→17:56)
[2023-11-01] MEDS: oxyCODONE 5 mg IR Tab/Cap PO ×2 (08:30→14:54)
[2023-11-01] MEDS: chlorhexidine gluconate 0.12% Btl 473 mL 30 ML MUCOUS MEM ×3 (08:31→22:25)
--- NOTE | 2023-11-01 09:00 | PC.CHAP ---
Pastoral Care Encounter/Spiritual Assessment Type of Contact [] Declined waste minimization technician visit [] Patient/Family/Request visit [] Outpatient visit [] Follow-up visit [] Physician referral [] Code/Alert [x] Routine visit [] Staff referral [] Actively dying [] Patient sleeping [] Family support [] [] Out of room [] Palliative care [] [] Receiving care in room [] Pre-surgical visit [] Trauma [] Long length of stay [] ICU visit [] Other: Relational/Emotional Strength [x] Patient feels connected with others/family/visitors/staff [] Distress [] Loneliness/isolation [] Abandonment Spirituality of Patient [x] Person of [place] [] Attends Pentecostalism of their [place] [x] Believes in Prayer [] Reads Bible or Anglican materials [] There are Spiritual issues to be addressed Air Crew Supervisor Interventions [x] Prayer [x] Active listening [] Non-anxious presence [x] Spiritual/emotional support [] Crisis/trauma care [] Spiritual counseling [] Bereavement support [] Provided bereavement packet [] Provided Bible/devotional materials [] Provided toy/stuffed animal, coloring book to patient or family member [] Provided Communion [] Anointing/[place] [] Salvation [x] Completed spiritual assessment [] Other: Impact on Illness or Injury [] Angry [] Fearful [] Anxious [] Often cries [] Exhaustion [] Unable to work [] Unable to attend evangelical [] Unable to walk/stand [] Unable to read [] Unable to drive [] Unable to eat/drink [] Unable to sleep [] Unable to be with family [] Patient intubated [] Other: Summary Time spent with patient 5 min
[2023-11-01 10:47] LABS: Hematocrit 32.2 % (37-53)
--- NOTE | 2023-11-01 20:53 | P.PN_ITS ---
Subjective 2 Subjective: Patient required unit of packed red blood cells today secondary to decreased blood pressure. This limited his ability to participate in physical therapy. When he was seen in the evening, he had received 1 unit of blood. Currently, he is asymptomatic. He did not participate aggressively with physical therapy today secondary to hypotension. Patient complains of aching in his hip. Medications: Reviewed: Yes Vitals/I&O/Wt Last Vital Signs Temp 98 F 11/01/23 20:13 Pulse 103 H 11/01/23 20:20 Resp 16 11/01/23 20:13 BP 98/65 11/01/23 20:13 Pulse Ox 96 11/01/23 20:13 O2 Del Method Room Air 11/01/23 20:13 O2 Flow Rate 6 10/31/23 10:32 11/01/23 11/01/23 11/01/23 06:59 14:59 22:59 Intake Total 1600 / 3520 950 / 950 480 / 1430 Output Total 200 / 2150 200 / 200 Balance 1400 / 1370 950 / 950 280 / 1230 Weight last 48 hrs Weight 155 lb 4 oz Weight 141 lb Weight 141 lb Physical Exam 2 Const: COMMON NORMALS: no acute distress, average body habitus, patient oriented x3 and alert GENERAL APPEARANCE: cooperative and comfortable O RIENTATION/CONSCIOUSNESS: Yes awake HENMT: COMMON NORMALS: normocephalic and atraumatic HEAD & SCALP: n ormocephalic and atraumatic Eye: GENERAL EYE: appearance normal, both eyes and all related structures Chest: COMMONS NORMALS: normal inspection of the chest Resp: COMMON NORMALS: normal respiratory effort EFFORT & INSPECTION: Yes able to speak in complete sentences and Yes symmetric chest movement Extremity: LEFT LOWER EXTREMITY: Yes hip joint Left hip: Yes inspection (No significant swelling or ecchymosis), Yes palpation (Minimal to no tenderness), Yes ROM (Not evaluated.) and Yes neurovascular exam (Intact distally with no evidence of DVT) Neuro: COMMON NORMALS: patient oriented x3 SENSORIUM/ORIENTATION: Yes alert Psych: COMMON NORMALS: mental status grossly normal APPEARANCE: Yes grossly normal ATTITUDE: Yes calm and Yes engaged ATTENTION/CONCENTRATION: Yes attention grossly intact Skin: COMMON NORMALS: no rashes or lesions noted GENERAL SKIN EXAM: no rashes or lesions noted Urinary Catheter Management: Robin: Cath Placed During This Visit: yes, but has since been removed by the nurse Reason for Continuing Indwelling Catheter: Acute Urinary Retention or Obstruction Urinary Catheter Date of Insertion: 10/31/23 Urinary Catheter Time of Insertion: 07:25 Date Urinary Catheter Removed: 11/01/23 Time Urinary Catheter Discontinued: 06:00 Data 11/01/23 10:37 11/01/23 02:25 Micro: Microbiology 10/31/23 08:13 Gram Stain - Final Hip - Left Anaerobic Culture - Preliminary Wound Culture - Preliminary 10/31/23 08:41 Gram Stain - Final Hip - Left Anaerobic Culture - Preliminary Wound Culture - Preliminary 10/31/23 08:16 Gram Stain - Final Hip - Left Tissue Culture - Preliminary A&P Assessment and plan (1) History of total left hip arthroplasty: Patient is doing well following left total hip arthroplasty. He was unable to work aggressively with physical therapy secondary to decreased blood pressure, but this improved with 1 unit of packed red blood cells. Patient will continue to work with physical therapy and will be discharged home when he is deemed safe. There is no evidence of DVT or neurologic compromise. (2) Avascular necrosis of bone of left hip: (3) Deformity of left femur: Attestations 2 Medical Necessity Statement*: Patient requires ongoing hospital care for hypotension and postoperative anemia. Coding Level of Care Code Acute Code for Chg Fwd Diagnoses History of total left hip arthroplasty Z96.642 Avascular necrosis of bone of left hip M87.052 Deformity of left femur M21.852
[2023-11-01] MEDS: acetaminophen 325 mg Tablet 650 MG PO (22:25)
[2023-11-02] VITALS (22 sets, daily range): BP systolic 60–129; BP diastolic 28–70; PULSE 65–105; RESP 14–31; TEMP 36.8; O2SAT 90–100
[2023-11-02] MEDS: cyclobenzaprine 10 mg Tablet PO (00:01)
[2023-11-02] MEDS: CELEcoxib 200 mg Capsule PO ×2 (02:46→17:52)
[2023-11-02] MEDS: sodium chloride 0.9% 1,000 ML 999 ML IV (04:00)
--- NOTE | 2023-11-02 04:54 | PC.NURSE ---
Nurse kasey reported 4am VS blood pressure of 83/49 which was taken at 0349 with automatic machine to conventional mortgage underwriter. this conventional mortgage underwriter proceeded to get manual blood pressured on the patient. the left arm was 60/28 and the right arm was 62/34 manually. doctor was called immediately at 4am, order for IV fluid bolus and transfer to ICU were given. patient placed trendelenburg, additional IV access obtained, bolus initiated, and bedside report given in the unit to receiving nurse geogre MASCORRO. attempt was made to contact the patients patricia vEerett by phone, with no answer a voicemail was left to contact the facility. the surgeon will be notified at 6am of the patient's change in status.
[2023-11-02 06:58] LABS: Basophils % 0.5 %; Eosinophils # 0.2 10^3/uL (0.0-0.8); Eosinophils % 2.6 %; Hematocrit 28.2 % (37-53); Lymphocytes % 15.5 %; Mean Corpuscular HGB Conc 32.6 g/dL (30-55); Mean Corpuscular Hemoglobin 29.4 pg (27-33); Mean Corpuscular Volume 90.1 fl (82-101); Mean Platelet Volume 8.8 fL (7.4-10.4); Monocytes # 0.7 10^3/uL (0.2-0.9); Monocytes % 11.1 %; Neutrophils # 4.63 10^3/uL (1.8-7.7); Nucleated Red Blood Cells % 0 %; Platelet Count 169 10^3/cmm (157-399); Red Blood Count 3.13 10^6/uL (3.85-5.65); Red Cell Distribution Width 14.6 % (12.1-15.1)
[2023-11-02 07:23] LABS: Anion Gap 11.5 (5-19); Blood Urea Nitrogen 23 mg/dL (8-23); Calcium 8.4 mg/dL (8.5-10.5); Carbon Dioxide 23 mmol/L (22-29); Chloride 110 mmol/L (98-107); Glucose 107 mg/dL (65-115); Osmolality Calculated 296 mOsm/kg (285-295); Potassium 3.5 mmol/L (3.5-5.1); Sodium 141 mmol/L (136-145)
--- NOTE | 2023-11-02 08:02 | USCV_ITS ---
Juno Sapp Age: 73 Gender: M : 1950 Exam Date: 11/02/2023 12:11 Ordering Phys: Indigo Morton MD Technologist: Arthur Ahumada [place]am Location[place] [facility] [place]ication: hypotension BP: 116 / 88 HR: 74 Rhythm: Sinus Technical Quality: Adequate MEASUREMENTS (Male / Female) Normal Values 2D ECHO LVOT Diameter 2.0 cm LV Ejection Fraction MOD 2C 60.9 % LV Ejection Fraction 2C AL 62.8 % LA Diameter 3.2 cm LA Width 3.3 cm LA Height 4.0 cm RA Width 3.2 cm RA Height 3.8 cm Aorta at Sinotubular Diameter 2.0 cm IVC Diameter 2.0 cm M-MODE Aortic Annulus Diameter 3.1 cm LA Ao Ratio MM 1.0 MV E Point Septal Separation 0.4 cm DOPPLER AV Peak Velocity 199.0 cm/s LVOT Peak Velocity 139.0 cm/s AV Area Cont Eq vti 2.6 cm squared AV Area Cont Eq pk 2.2 cm squared MV Peak Velocity 123.0 cm/s MV Area PHT 9.2 cm squared Mitral E to A Ratio 0.9 MV E' Velocity 40.0 cm/s Mitral E to MV E' Ratio 7.1 Mitral E to LV E' Lateral Ratio 8.1 Mitral E to LV E' Septal Ratio 6.4 TR Peak Velocity 177.2 cm/s TR Peak Gradient 12.6 mmHg TR Mean Velocity 132.4 cm/s TR Mean Gradient 7.3 mmHg TR Velocity Time Integral 32.9 cm Right Atrial Pressure 3.0 mmHg Pulmonary Artery Systolic Pressu 15.6 mmHg PV Peak Velocity 173.0 cm/s RV Acceleration Time 0.1 s RV Ejection Time 0.2 s RV AcT/ET 0.5 FINDINGS Left Ventricle Normal left ventricular size and systolic function, EF 62 %. No regional wall motion abnormalities.Grade I/IV diastolic dysfunction (abnormal relaxation filling pattern), normal to mildly elevated filling pressures. Right Ventricle The right ventricle is normal in size and function. Right Atrium The right atrium is normal in size. Left Atrium The left atrium is normal in size. Mitral Valve No gross abnormalities noted Aortic Valve Thickened aortic valve. Tricuspid Valve No gross abnormalities noted Pulmonic Valve No gross abnormalities no Pericardium Normal pericardium without effusion. Aorta Normal ascending aorta dimension. IVC Normal inferior vena cava. CONCLUSIONS Normal left ventricular size and systolic function, EF 62 %. No regional wall motion abnormalities.Grade I/IV diastolic dysfunction (abnormal relaxation filling pattern), normal to mildly elevated filling pressures. Thickened aortic valve. There is no pericardial effusion. There are no intracardiac masses. No similar previous studies are available for comparison Dr Tawnya Charles MD FAC (Electronically Signed) Final Date: 02 November 2023 15:39 S
--- NOTE | 2023-11-02 08:07 | W.PM.EVENTAC ---
Event Notes Attestations Time Spent in Patient Care: Spoke with Dr. Dahl this morning, It took me a while to recall events from last night Patient was transferred to ICU because he was persistently hypotensive, I will give him a fluid bolus Did not require Levophed overnight I have requested random cortisol level along echo to see if that would explain persistent hypotension Hemoglobin has been stable around 9.2 however it has dropped from his baseline We will add low-dose midodrine
[2023-11-02] MEDS: aspirin 325 mg EC Tablet PO (09:35)
[2023-11-02] MEDS: cholecalciferol (vitamin D3) 1,000 unit Tablet 1000 UNIT PO (09:36)
[2023-11-02] MEDS: calcium carbonate 500 mg Chew Tablet 1000 MG PO ×2 (09:36→17:51)
[2023-11-02] MEDS: sennosides-docusate Tablet 2 TAB PO ×2 (09:36→17:51)
[2023-11-02] MEDS: atorvastatin 40 mg Tablet PO (09:36)
[2023-11-02] MEDS: midodrine 5 mg TABLET PO ×2 (09:37→17:52)
[2023-11-02] MEDS: multivitamin therapeutic Tablet 1 TAB PO (09:37)
[2023-11-02] MEDS: pantoprazole DR 40 mg Tablet PO (09:37)
[2023-11-02] MEDS: oxyCODONE 5 mg IR Tab/Cap PO (09:59)
[2023-11-02] MEDS: cilostazol 100 mg Tablet 50 MG PO (10:00)
[2023-11-02] MEDS: latanoprost 0.005% Op Soln 2.5 mL Btl 1 DROP EYE-BOTH (10:01)
[2023-11-02] MEDS: mupirocin oint 22 gm 1 APPLIC NASAL ×2 (10:01→17:54)
--- NOTE | 2023-11-02 11:47 | P.PN_ITS ---
Subjective 2 Subjective: Overnight, patient remained persistently hypotensive On seeing the patient, he complains of abdominal pain that began the day after his L. BENJAMIN and 1 week of constipation. He endorses passing flatus, stating that he last passed flatus this morning. He denies fever, chills, dizziness, lightheadedness, nausea, vomiting, CP, palpitations, SOB. He endorses a clear productive cough, but denies wheezing. Vitals/I&O/Wt Last Vital Signs Temp 98.2 F 11/02/23 03:49 Pulse 98 11/02/23 06:30 Resp 22 H 11/02/23 09:59 BP 85/50 11/02/23 06:30 Pulse Ox 95 11/02/23 09:59 O2 Del Method Room Air 11/02/23 03:49 O2 Flow Rate 6 10/31/23 10:32 11/01/23 11/02/23 11/02/23 22:59 06:59 14:59 Intake Total 960 / 1910 0 / 1910 1150 / 1150 Output Total 425 / 425 Balance 535 / 1485 0 / 1485 1150 / 1150 Weight last 48 hrs Weight 69.445 kg Weight 70.42 kg Weight 63.957 kg Physical Exam 2 Const: GENERAL APPEARANCE: cooperative; not comfortable ORIENTATION/CONSCIOUSNESS: Yes awake, Yes oriented to person, Yes oriented to place and Yes oriented to time HENMT: COMMON NORMALS: normocephalic, atraumatic and external ears normal H EAD & SCALP: normocephalic and atraumatic EXTERNAL EAR: Yes external ears normal OTHER: Dry oropharynx Eye: COMMON NORMALS: Equal, round and reactive pupils present and conjunctivae normal CONJUNCTIVA: Yes conjunctivae normal PUPIL: Yes Equal, round and reactive pupils present EOM: No EOM abnormal Neck/C-Spine: COMMON NORMALS: Thyroid normal GENERAL: Yes normal visual inspection and Yes trachea midline THYROID: Thyroid normal CAROTIDS: No bruit Lymph: LYMPHATIC: No lymphadenopathy Resp: OTHER: Decreased breath sounds and crackles in the RLL. GI: OTHER: Ventral hernia above the umbilicus, that is difficult to reduce, and is tender to palpation. b/l L>R inguinal hernias, both of which are tender to palpation. BS+, nondistended, no rebound, no guarding, no hepatosplenomegaly Extremity: NARRATIVE EXTREMITY EXAM: No cyanosis, clubbing, or pedal edema. Neuro: SENSORIUM/ORIENTATION: Yes oriented to person, Yes oriented to place and Yes oriented to time CRANIAL NERVES: Yes CN normal except as noted S PEECH: speech normal SENSORY EXAM: No sensory level loss detected MOTOR EXAM: 5/5 motor strength present throughout and Normal motor muscle tone present throughout Skin: COMMON NORMALS: no rashes or lesions noted GENERAL SKIN EXAM: no rashes or lesions noted Urinary Catheter Management: Robin: Cath Placed During This Visit: yes, but has since been removed by the nurse Reason for Continuing Indwelling Catheter: Acute Urinary Retention or Obstruction Urinary Catheter Date of Insertion: 10/31/23 Urinary Catheter Time of Insertion: 07:25 Date Urinary Catheter Removed: 11/01/23 Time Urinary Catheter Discontinued: 06:00 Data 11/02/23 06:49 11/02/23 06:49 Micro: Microbiology 10/31/23 08:41 Gram Stain - Final Hip - Left Anaerobic Culture - Preliminary Wound Culture - Preliminary 10/31/23 08:13 Gram Stain - Final Hip - Left Anaerobic Culture - Preliminary Wound Culture - Preliminary 10/31/23 08:16 Gram Stain - Final Hip - Left Tissue Culture - Preliminary A&P Assessment and plan (1) Postoperative hypotension: (2) Acute blood loss as cause of postoperative anemia: (3) Essential hypertension: (4) Peripheral arterial disease: (5) Hyperlipidemia, unspecified: Qualifiers: Hyperlipidemia type: mixed hyperlipidemia Qualified Code(s): E78.2 - Mixed hyperlipidemia (6) Panlobular emphysema: (7) Incarcerated hernia of abdominal cavity: Plan Mr. Sapp is a 73yoman w/ HTN, HLD, Panlobular Emphysema, PAD, who is s/p a R. 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 The Hospitalist Service was consulted on 11/01/2023 for postop hypotension. Per review w/ the pharmacist, the patient received 1L NS bolus at 6:26am prior to surgery. He became hypotensive post-op and was given 1L in the evening of 10/31 around 21:00. The patient received another 500cc bolus in the early AM of 11/01. The patient was transfused 1unit prbc in the morning of 11/01. His BP appeared to improve until the early AM hrs of 11/02 when he became hypotensive to as low as 60/28mmHg, despite 1L NS, so he was transferred to the ICU and started on Midodrine. The patient's exam was significant for an incarcerated ventral/umbilical and bilateral L>R inguinal hernia. The patient's primary attending, Dr. Dahl, was notified, of my concerns, and I proposed obtaining a CT abd/pelvis and consulting general surgery. She transferred to the service over to the hospitalist and recommended consulting general surgery. General surgery was consulted, who saw the patient and believes that the patient has an incarcerated hernia, but there is no concern for bowel obstruction at this time. Per Gen Surg, he will likely need an elective repair in the future. Gen Surgery plans to f/u the CT abd/pelvis w/o IV contrast but w/ oral contrast ordered. #S/p L. BENJAMIN on 10/31/2023 for Osteoarthritis and AVM - Orthopedic surgery's procedure note says R. BENJAMIN, but the visualized incision is on the left hip. #Post-op Hypotension: - On midodrine - continue - F/u CXR, and UA. Low threshhold for ordering a CTA chest to r/o PE, but will have to be mindful of potential PILAR given long episodes of hypotension. #Post-op Acute blood loss anemia: Estimated Blood loss of 350cc. S/p IVF w/ no improvement in BP. - s/p 1unit prbc on 11/01/2023 - F/u iron studies #Incarcerated Abdominal hernias: Gen Surgery consulted. CT abd/pelvis ordered. #Constipation: Laxatives prn. #HTN: Anihypertensives held. #HLD: On Atorvastatn #Panlobular Emphysema: Resumed nebulizer treatment and inhalers. F/u CXR & sputum cx. #chronic low back ban w/ radiculopathy #Peripheral artery disease: On Aspirin/Atorvastatin, and Cilostazol. Held Cilostazol DVT ppx: SCD Attestations 2 Medical Necessity Statement*: Patient needs to remain hospitalized for hypotension evaluation, and incarcerated hernia evaluation Coding Level of Care Code 56056 Diagnoses Postoperative hypotension I95.81 Acute blood loss as cause of postoperative anemia D62 Essential hypertension I10 Peripheral arterial disease I73.9 Mixed hyperlipidemia E78.2 Hyperlipidemia type: mixed hyperlipidemia Panlobular emphysema J43.1 Incarcerated hernia of abdominal cavity K45.0
--- NOTE | 2023-11-02 12:20 | PC.OT ---
patient is unavailable for OT at this time . He is having ultrasound procedure done and nursing stated that he was up in morning and sat at the bed side chair and is tired and resting. OT services to hold today.
--- NOTE | 2023-11-02 12:27 | XRR_ITS ---
PROCEDURE INFORMATION: Exam: XR Chest Exam date and time: 11/02/2023 1:58 PM Age: 73 years old Clinical indication: Patient HX: Post op hypotension; Smoker TECHNIQUE: Imaging protocol: Radiologic exam of the chest. Views: 1 view. COMPARISON: CR XR ribs BI mn 4V w CXR1V [id number] 01/10/2021 10:05 AM FINDINGS: Lungs: No focal pulmonary consolidation. Stable minimal prominence of the pulmonary interstitium. Pleural spaces: No pleural effusion identified. Heart/Mediastinum: The heart is not enlarged. The mediastinum is not enlarged. Bones/joints: No acute osseous abnormality identified. XR/XR chest 1V portable [id number] IMPRESSION: No acute cardiopulmonary abnormality identified.
--- NOTE | 2023-11-02 13:11 | CTR_ITS ---
PROCEDURE INFORMATION: Exam: CT Abdomen And Pelvis Without Contrast Exam date and time: 11/02/2023 4:15 PM Age: 73 years old Clinical indication: Condition or disease; Hernia; Complications not specified; Other: Inguinal , umbilical; Additional info: Concern for incarcerated umbilical and inguinal hernias, wait at least 2-3 hours for the contrast to reach the rectum TECHNIQUE: Imaging protocol: Computed tomography of the abdomen and pelvis without contrast. Radiation optimization: All CT scans at this facility use at least one of these dose optimization techniques: automated exposure control; mA and/or kV adjustment per patient size (includes targeted exams where dose is matched to clinical indication); or iterative reconstruction. REPORTING DATA: Count of CT and Cardiac NM exams in prior 12 months: This patient has received 4 known CTs and 0 known cardiac nuclear medicine studies in the 12 months prior to the current study. COMPARISON: CR XR pelvis 1-2V* [id number] 10/31/2023 12:12 PM RADIATION DOSE METRICS: Total DLP (mGy-cm): 599.31 FINDINGS: Lungs: Streaky densities at the lung bases are most consistent with scarring and/or atelectasis. Coronary arteries: Multivessel atherosclerotic disease which involves the coronary arteries. Mediastinal space: There is contrast in the distal esophagus consistent with reflux. Liver: There are hepatic cystic lesions with benign features the larger of which measures 3.5 cm in the craniocaudad dimension at the liver dome. Incidental splenic and hepatic calcified granulomata. Gallbladder and bile ducts: There are multiple calcified stones in the gallbladder. Pancreas: Normal. No ductal dilation. Spleen: Normal. No splenomegaly. Adrenal glands: Normal. No mass. Kidneys and ureters: Normal. No hydronephrosis. Stomach and bowel: See Soft tissues finding. Appendix: No evidence of appendicitis. Intraperitoneal space: Unremarkable. No free air. No significant fluid collection. Vasculature: Infrarenal abdominal aorta is aneurysmal measuring 3.4 cm in AP dimension. No evidence for current rupture. 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 Lymph nodes: Unremarkable. No enlarged lymph nodes. Urinary bladder: Bladder diverticula. Reproductive: Unremarkable as visualized. Bones/joints: Status post left total hip replacement. There is fluid stranding and multiple foci of air in the musculature and subcutaneous soft tissues surrounding the left pelvis and left upper thigh. There are degenerative changes in the visualized spine. There is a severe chronic appearing T9 compression fracture. Soft tissues: There is a left inguinal hernia containing the distal descending/sigmoid colon junction without evidence for strangulation at this location.There is diverticulosis of the colon without evidence of diverticulitis. Midline/left paracentral periumbilical hernia contains small bowel loops with associated mucosal thickening and mesenteric fluid stranding consistent with strangulation. The small bowel proximal and distal to the hernia are dilated with air-fluid levels consistent with obstruction. Oral contrast does not proceed to the level of the hernia CT/CT abdomen pelvis wo con [id number] IMPRESSION: 1. Periumbilical hernia containing small bowel loops with evidence for strangulation and small bowel obstruction. 2. Status post left total hip replacement. There is fluid stranding and multiple foci of air in the musculature and subcutaneous soft tissues surrounding the left pelvis and left upper thigh which may be postoperative in nature. Infection cannot be excluded. 3. Infrarenal abdominal aorta is aneurysmal measuring 3.4 cm in AP dimension. No evidence for current rupture.
--- NOTE | 2023-11-02 13:42 | P.CONIM_ITS ---
Providers/Reason For Consult 2 Consulting Physician/Specialty*: General surgery Reason for Consult*: Ventral hernia Attending Physician: Rosanna Parker MD Primary Care Provider: Ketty Sapp MD History of Present Illness History of Present Illness Juno Sapp is a 73 year old male with history of left hip replacement who is currently in ICU for postoperative blood loss anemia. I have been consulted after medical team noted an incarcerated umbilical hernia inguinal hernia and had a concern for possible need for surgical intervention. Per patient report the hernia came after his prostate surgery, he states that he usually notices the hernia to be protruding out and from time to time when he lays completely flat he is able to reduce it. He also has inguinal hernia that is reducible. Review of Systems 2 Narrative: 10 point review of systems done negative otherwise noted in HPI Medications/Allergies Home Medications Medication Instructions Recorded Confirmed Last Taken Type latanoprost 0.005 % eye drops 1 drp ophthalmic (eye) DAILY 01/10/21 11/01/23 09/11/23 History cilostazol 50 mg tablet 50 mg PO BID #180 tabs 02/20/23 11/01/23 09/06/23 Rx rollater walker with seat #1 ea 05/06/23 11/01/23 Unknown Rx albuterol sulfate 90 mcg/actuation 1 puff inhalation QID PRN 07/26/23 11/01/23 09/11/23 Rx aerosol inhaler (Ventolin HFA) shortness of breath or wheezing #8.5 grams budesonide-formoterol HFA 80 2 puff inhalation BID 08/12/23 11/01/23 09/11/23 History mcg-4.5 mcg/actuation aerosol inhaler (Symbicort) cyclobenzaprine 10 mg tablet 10 mg PO Q8H PRN Spasms 08/12/23 11/01/23 09/11/23 History omeprazole 20 mg capsule,delayed 20 mg PO DAILY 08/12/23 11/01/23 09/11/23 History release valsartan 320 mg tablet 320 mg PO DAILY 08/12/23 11/01/23 09/11/23 History acetaminophen 650 mg 650 mg PO Q8H PRN Pain 09/10/23 11/01/23 09/11/23 History tablet,extended release amlodipine 10 mg tablet 5 mg PO DAILY 1011/01/23 09/12/23 History hydrocodone 5 mg-acetaminophen 325 1 tab PO TID PRN pain 30 days #90 10/23/23 11/01/23 Unknown Rx mg tablet tabs rosuvastatin 10 mg tablet (Crestor) 10 mg PO DAILY #30 tabs 10/23/23 11/01/23 Unknown Rx ciprofloxacin HCl 500 mg tablet 500 mg PO BID #14 tabs 10/28/23 11/01/23 Unknown Rx celecoxib 200 mg capsule (Celebrex) 200 mg PO BID #60 caps 10/31/23 11/01/23 Unknown Rx Allergies Allergy/AdvReac Type Severity Reaction Status Date / Time No Known Allergies Allergy Verified 10/25/23 10:36 Current Medications Generic Name Dose Route Start Last Admin Trade Name Freq PRN Reason Stop Dose Admin Acetaminophen 650 mg 10/31/23 20:38 11/01/23 22:25 Acetaminophen 325 Mg Tablet PO 650 mg Q8H PRN Administration MILD PAIN Aspirin 325 mg 11/01/23 09:00 11/02/23 09:35 Aspirin 325 Mg Ec Tablet PO 325 mg DAILY MINDI Administration Atorvastatin Calcium 40 mg 11/01/23 09:00 11/02/23 09:36 Atorvastatin 40 Mg Tablet PO 40 mg DAILY MINDI Administration Calcium Carbonate 1,000 mg 10/31/23 18:00 11/02/23 09:36 Calcium Carbonate 500 Mg Chew Tablet PO 1,000 mg BID MINDI Administration Celecoxib 200 mg 10/31/23 14:07 11/02/23 02:46 Celecoxib 200 Mg Capsule PO 200 mg Q12H MINDI Administration Chlorhexidine Gluconate 30 ml 10/31/23 14:07 11/02/23 10:00 Chlorhexidine Gluconate 0.12% Btl 473 Ml MUCOUS MEM Not Given QID MINDI Cilostazol 50 mg 10/31/23 18:00 11/02/23 10:00 Cilostazol 100 Mg Tablet PO 50 mg BID MINDI Administration Cyclobenzaprine HCl 10 mg 10/31/23 14:07 11/02/23 00:01 Cyclobenzaprine 10 Mg Tablet PO 10 mg Q8H PRN Administration Spasms Latanoprost 1 drop 11/01/23 09:00 11/02/23 10:01 Latanoprost 0.005% Op Soln 2.5 Ml Btl EYE-BOTH 1 drop DAILY MINDI Administration Midodrine 5 mg 11/02/23 09:00 11/02/23 09:37 Midodrine 5 Mg Tablet PO 5 mg BID MINDI Administration Multivitamins Therapeutic 1 tab 11/01/23 09:00 11/02/23 09:37 Multivitamin Therapeutic Tablet PO 1 tab DAILY MINDI Administration Mupirocin 1 applic 10/31/23 18:00 11/02/23 10:01 Mupirocin Oint 22 Gm NASAL 11/05/23 17:59 1 applic BID MINDI Administration Protocol Oxycodone HCl 5 mg 10/31/23 11:46 11/02/23 09:59 Oxycodone 5 Mg Ir Tab/Cap PO 5 mg Q4H PRN Administration MODERATE PAIN Pantoprazole Sodium 40 mg 11/01/23 09:00 11/02/23 09:[address] 40 Mg Tablet PO 40 mg DAILY MINDI Administration Polysaccharide Iron Complex 150 mg 10/31/23 18:00 11/02/23 10:00 Iron Polysaccharide Complex 150 Mg Capsule PO Not Given BIDWM MINDI Senna/Docusate Sodium 2 tab 10/31/23 18:00 11/02/23 09:36 Sennosides-Docusate Tablet PO 2 tab BID MINDI Administration Vitamin D 1,000 unit 11/01/23 09:00 11/02/23 09:36 Cholecalciferol (Vitamin D3) 1,000 Unit Tablet PO 1,000 unit DAILY MINDI Administration PFSH Acute 2 PFSH: Medical History Peripheral arterial disease Abdominal hernia Glaucoma Chronic constipation Male urinary stress incontinence Panlobular emphysema Acute depression Essential (primary) hypertension Hyperlipidemia, unspecified Chronic radicular low back pain Adenocarcinoma of prostate (~2012) Surgical History Hx of detached retina repair right x 3 Hx of cataract surgery Hx of prostatectomy Hx of right inguinal hernia repair Hx of removal of neck cyst Family History Brother Cancer prostate, colon Chronic kidney disease (CKD) Hypertension Diabetes Father Chronic kidney disease (CKD) Social History Smoking and tobacco/nicotine status: current every day tobacco/nicotine user (1/2 - 1 PPD) cigarettes Packs smoked per day: 1 Years cigarettes smoked: 30 Alcohol intake: never Substance/Drug Use: never Lives independently: Yes Household members: none Housing: Apartment Marital status: Current occupational status: retired Current gender identity: Male Vitals/I&O/Wt Last Vital Signs Temp 98.2 F 11/02/23 03:49 Pulse 98 11/02/23 06:30 Resp 22 H 11/02/23 09:59 BP 85/50 11/02/23 06:30 Pulse Ox 95 11/02/23 09:59 O2 Del Method Room Air 11/02/23 03:49 O2 Flow Rate 6 10/31/23 10:32 11/01/23 11/02/23 11/02/23 22:59 06:59 14:59 Intake Total 960 / 1910 0 / 1910 1150 / 1150 Output Total 425 / 425 Balance 535 / 1485 0 / 1485 1150 / 1150 Weight last 48 hrs Weight 153 lb 1.6 oz Weight 155 lb 4 oz Weight 141 lb Physical Exam 2 Narrative: General : Patient , appears weak Head : Normal cephalic, a-traumatic. Nose : Mucous membranes are without erythema. Lungs : Equal chest rise bilaterally, no use of accessory muscles, trachea is midline. CV : Rate and rhythm are normal. Abdomen : Abdomen is soft, nontender, nondistended, there is an incarcerated ventral hernia that has tenderness when you try to reduce them but otherwise no tenderness, I suspect that it contains omentum and probably a piece of colon. There is a little bilateral inguinal hernias that are easily reducible. Extremities : No edema. Upper extremities are normal bilaterally. Back : non-tender to palpation, no CVA tenderness. Urinary Catheter Management: Robin: Cath Placed During This Visit: yes, but has since been removed by the nurse Reason for Continuing Indwelling Catheter: Acute Urinary Retention or Obstruction Urinary Catheter Date of Insertion: 10/31/23 Urinary Catheter Time of Insertion: 07:25 Date Urinary Catheter Removed: 11/01/23 Time Urinary Catheter Discontinued: 06:00 Data 11/02/23 06:49 11/02/23 06:49 Micro: Microbiology 10/31/23 08:41 Gram Stain - Final Hip - Left Anaerobic Culture - Preliminary Wound Culture - Preliminary 10/31/23 08:13 Gram Stain - Final Hip - Left Anaerobic Culture - Preliminary Wound Culture - Preliminary 10/31/23 08:16 Gram Stain - Final Hip - Left Tissue Culture - Preliminary A&P Assessment and plan (1) Abdominal hernia: Plan 73-year-old male with history of left hip replacement acute blood loss anemia who I have been consulted for possibility of incarcerated ventral hernia. After evaluation of the patient, it appears that this is a chronic problem, we will there is increasing the incarceration over the last couple of weeks, patient denies any symptoms of a small bowel obstruction and there is send no other significant changes in the abdominal exam that may denote this. I do anticipate the need for an emergent repair for this patient, per primary team they will obtain a CT of the abdomen pelvis with contrast, will follow-up with results but if there is no evidence of strangulation I will defer repair for an elective basis once patient recovers from current surgery. Coding Level of Care Code 03430 Diagnoses Abdominal hernia K46.9
[2023-11-02] MEDS: albuterol 2.5 mg/3 mL Neb INHALATION (14:03)
[2023-11-02] MEDS: budesonide 0.5 mg/2 mL Neb INHALATION (14:03)
[2023-11-02 14:08] LABS: Lactate Dehydrogenase 237 U/L (135-225)
[2023-11-02 14:10] LABS: Reticulocyte % 1.5 % (0.5-2.0)
[2023-11-02 14:35] LABS: Ferritin 762 ng/mL (30-400); Iron 10 ug/dL (59-158); Total Iron Binding Capacity 165 mcg/dl; Unsaturated Iron Binding 155 ug/dL (112-347)
[2023-11-02 14:50] LABS: Folate Level 12.5 ng/mL (4.5-32.2); Vitamin B12 216 pg/mL (232-1245)
[2023-11-02 15:20] LABS: Lactate (Lactic Acid level) 1.2 mmol/L (0.5-2.2)
[2023-11-02 16:09] LABS: LAB Peripheral Smear Sent for Review
[2023-11-02] MEDS: iohexol 350 mg/mL 500 mL Btl (per mL) PO (16:24)
--- NOTE | 2023-11-02 16:40 | P.PN_ITS ---
Subjective 2 Subjective: Patient is doing well from the perspective of his hip, but he was transferred to intensive care early this morning secondary to persistent hypotension. The patient also had significant abdominal pain, and he has history of a very large umbilical hernia. Medications: Reviewed: Yes Vitals/I&O/Wt Last Vital Signs Temp 98.2 F 11/02/23 03:49 Pulse 88 11/02/23 14:00 Resp 18 11/02/23 12:00 BP 85/50 11/02/23 06:30 Pulse Ox 94 11/02/23 12:00 O2 Del Method Room Air 11/02/23 12:00 O2 Flow Rate 6 10/31/23 10:32 11/02/23 11/02/23 11/02/23 06:59 14:59 22:59 Intake Total 0 / 1910 1700 / 1700 Output Total 775 / 775 Balance 0 / 1485 925 / 925 Weight last 48 hrs Weight 153 lb 1.6 oz Weight 155 lb 4 oz Physical Exam 2 Const: COMMON NORMALS: no acute distress, average body habitus, patient oriented x3 and alert GENERAL APPEARANCE: cooperative and comfortable O RIENTATION/CONSCIOUSNESS: Yes awake HENMT: COMMON NORMALS: normocephalic and atraumatic HEAD & SCALP: n ormocephalic and atraumatic Eye: GENERAL EYE: appearance normal, both eyes and all related structures Chest: COMMONS NORMALS: normal inspection of the chest Resp: COMMON NORMALS: normal respiratory effort EFFORT & INSPECTION: Yes able to speak in complete sentences and Yes symmetric chest movement Extremity: LEFT LOWER EXTREMITY: Yes hip joint Left hip: Yes inspection (No drainage or ecchymosis), Yes palpation (No hip tenderness), Yes ROM (Not evaluated) and Yes neurovascular exam (No evidence of DVT, motor intact) Neuro: COMMON NORMALS: patient oriented x3 SENSORIUM/ORIENTATION: Yes alert Psych: COMMON NORMALS: mental status grossly normal APPEARANCE: Yes grossly normal ATTITUDE: Yes calm and Yes engaged ATTENTION/CONCENTRATION: Yes attention grossly intact Skin: COMMON NORMALS: no rashes or lesions noted GENERAL SKIN EXAM: no rashes or lesions noted Urinary Catheter Management: Robin: Cath Placed During This Visit: yes, but has since been removed by the nurse Reason for Continuing Indwelling Catheter: Acute Urinary Retention or Obstruction Urinary Catheter Date of Insertion: 10/31/23 Urinary Catheter Time of Insertion: 07:25 Date Urinary Catheter Removed: 11/01/23 Time Urinary Catheter Discontinued: 06:00 Data 11/02/23 06:49 11/02/23 06:49 Micro: Microbiology 10/31/23 08:41 Gram Stain - Final Hip - Left Anaerobic Culture - Preliminary Wound Culture - Preliminary 10/31/23 08:13 Gram Stain - Final Hip - Left Anaerobic Culture - Preliminary Wound Culture - Preliminary 10/31/23 08:16 Gram Stain - Final Hip - Left Tissue Culture - Preliminary A&P Assessment and plan (1) History of total left hip arthroplasty: Patient is doing well following left total hip arthroplasty. He was unable to work aggressively with physical therapy secondary to decreased blood pressure, but this improved with 1 unit of packed red blood cells. He received the PAC unit of blood cells on postop day 1. Today, postop day 2, patient has been transferred to the intensive care unit for recurrence of his hypotension. The patient notes that his main pain appears to be coming from his abdomen. He has a very large incarcerated hernia. He notes that it is much harder than normal. He will be evaluated by general surgery for possible surgical intervention. (2) Avascular necrosis of bone of left hip: (3) Deformity of left femur: Attestations 2 Medical Necessity Statement*: Ongoing care following left total hip arthroplasty Coding Level of Care Code Acute Code for [facility] Fwd Diagnoses History of total left hip arthroplasty Z96.642 Avascular necrosis of bone of left hip M87.052 Deformity of left femur M21.852
[2023-11-02 17:02] LABS: Cortisol Random 11.24 ug/dL (2.47-19.5)
[2023-11-02] MEDS: iron polysaccharide complex 150 mg Capsule PO (17:52)
[2023-11-02] MEDS: sodium chloride 0.9% 1,000 ML 75 ML IV (17:57)
[2023-11-02] MEDS: lactated ringers 500 ML 999 ML IV (18:39)
--- NOTE | 2023-11-02 18:41 | P.PN_ITS ---
Subjective 2 Subjective: I reevaluated the patient after CT scan results show evidence of a possible strangulated ventral hernia. Per patient report well he has not had any nausea or vomit he has not had a bowel movement in about a week, his abdominal pain appears to be worsening. Vitals/I&O/Wt Last Vital Signs Temp 98.2 F 11/02/23 03:49 Pulse 88 11/02/23 14:00 Resp 18 11/02/23 12:00 BP 85/50 11/02/23 06:30 Pulse Ox 94 11/02/23 12:00 O2 Del Method Room Air 11/02/23 12:00 O2 Flow Rate 6 10/31/23 10:32 11/02/23 11/02/23 11/02/23 06:59 14:59 22:59 Intake Total 0 / 1910 1700 / 1700 Output Total 775 / 775 Balance 0 / 1485 925 / 925 Weight last 48 hrs Weight 153 lb 1.6 oz Weight 155 lb 4 oz Physical Exam 2 GI: OTHER: Will Abdominal exam showed decrease bowel sounds, there is a incarcerated ventral hernia, the hernia is tender to palpation, this may be concerning for strangulation as seen in the imaging. Urinary Catheter Management: Robin: Cath Placed During This Visit: yes, but has since been removed by the nurse Reason for Continuing Indwelling Catheter: Acute Urinary Retention or Obstruction Urinary Catheter Date of Insertion: 10/31/23 Urinary Catheter Time of Insertion: 07:25 Date Urinary Catheter Removed: 11/01/23 Time Urinary Catheter Discontinued: 06:00 Data 11/02/23 06:49 11/02/23 06:49 Micro: Microbiology 10/31/23 08:41 Gram Stain - Final Hip - Left Anaerobic Culture - Preliminary Wound Culture - Preliminary 10/31/23 08:13 Gram Stain - Final Hip - Left Anaerobic Culture - Preliminary Wound Culture - Preliminary 10/31/23 08:16 Gram Stain - Final Hip - Left Tissue Culture - Preliminary A&P Assessment and plan (1) Strangulated ventral hernia: Plan After reevaluation of the patient I have discussed the need for surgery, I think since that hernia appears to be strangulated and immediate repair is required. I have offered her an open repair with possible mesh, I have explained to the patient that this is a high risk operation can carry a very high chance of bowel injury, need for ostomy creation, recurrence, need for additional surgical interventions, bleeding, intra-abdominal abscess, that. After discussion of all the risk and benefits patient has agreed to proceed with surgery. I have also talked to the next of kin of the patient and explained the situation, they are agreeable to proceeding with surgery. Patient will be taken to the OR tonight as this is considered an emergent procedure. Attestations 2 Medical Necessity Statement*: Patient will require at least 2 more days of hospital stay after management of ventral hernia Coding Level of Care Code 85238 Diagnoses Strangulated ventral hernia K43.6
[2023-11-02] MEDS: ceFAZolin 2,000 MG in sodium chloride 0.9% (plus) 50 ML 100 MG IV (20:07)
[2023-11-02] MEDS: BUPivacaine 0.5% INJ 30 mL INJECTION (22:14)
[2023-11-02] MEDS: lidocaine 2% INJ 20 mL INJECTION (22:15)
--- NOTE | 2023-11-02 22:36 | PM.OP ---
Operative Report Date of procedure: November 02, 2023 Pre-op diagnosis: Strangulated ventral hernia Post-op diagnosis: Strangulated ventral hernia with bowel ischemia Post-op findings: There was a large about 15 x 5 cm ventral hernia, the hernia contained small bowel loops, several of these small bowel loops appeared to be to lyse, with changes suggesting of transmural ischemia. A resection and anastomosis was done removing about 20 cm of a small bowel. Procedure done: Open primary repair of ventral hernia, laparotomy with a small bowel resection and primary anastomosis Specimens removed/disposition: Hernia sac, segment of small bowel Surgeon: Sridhar Estes MD Check Inspector: CHELSIE OR Staff Estimated blood loss: 20 cc Complications: None apparent Brief History: 73-year-old male who was in the hospital due to a recent hip replacement, he developed symptoms concerning for strangulation of longstanding abdominal wall hernia. A CT scan of the abdomen showed evidence of a strangulated ventral hernia. Patient was informed of the findings and a discussion regarding risk and benefits of surgery was done, patient agreed to proceed with ventral hernia repair. Procedure: Patient was brought into the OR. He was placed in the supine position. The abdomen was prepped and draped in the usual sterile fashion after general esthesia was given. Timeout was conducted. The ventral hernia was noted to be completely incarcerated, unable to be reduced. I made a 20 cm incision on the area overlying the hernia from about 5 cm from the xiphoid to the level of the umbilicus, the incision was carefully deepened with a 15 blade until the hernia sac was identified, circumferential dissection of the hernia sac was achieved with Metzenbaum, blunt dissection and careful use of electrocautery. After this sac was circumferentially dissected I was able to dissect the ring of about 2 cm around the sac at the level of the fascia. At this point I proceeded to open the hernia sac, immediate evacuation of 0 sanguinous fluid was noted, the hernia containing loops of the small bowel, about 20 cm of the small bowel appears severely congested, without peristalsis. Additions from the small bowel to the hernia sac were taken down, the hernia sac was then resected at the level of the fascia and sent to pathology. At this point it was apparent that I will have to increase the size of the hernia ring in order to allow for reduction of the small bowel and further investigation of abdominal cavity. I then proceeded to make a 4 cm superior extension of the hernia ring at the level of the midline. Adequate space was achieved to be able to reduce the small bowel, before reduction I proceeded to warm the bowel for about 10 minutes with the seeing an improvement. The bowel was run from the ligament of Treitz to the terminal ileum. No improvement of the ischemic symptoms of the previously mentioned segment of bowel was noted, there was no peristalsis, the bowel appeared to and was severely congested. Therefore the decision was made to proceed with a resection with primary anastomosis. I did this in the standard fashion using 75 mm blue load Endo SUSANA for the resection and to create anastomotic channel and a 60 mm load TA to close the common channel. The smallest bowel resected was transected from the miso using LigaSure, and passed as a specimen. Once anastomosis was created I proceeded to reinforce the suture line with #3-0 Vicryl and the mesenteric defect was closed with #3-0 Vicryl at this point no evidence of bleeding or areas of anastomotic weakness was noted, the anastomosis was reduced into the abdomen. Due to concerns for contamination due to small bowel resection I then proceeded with a primary closure of the hernia defect, the fascial edges were cleaned to healthy fascia, the fascia on the right side of the abdomen was noted to be severely attenuated. At the end of the dissection the hernia measured about 15 x 5 cm the hernia was closed primarily using #1 PDS sutures and the small bites. Once the hernia was close it was apparent that the cavity created in the subcutaneous tissue to the right side of the midline was extremely weak, which will increase the risk of seroma formation. Therefore I decided to resect a segment of about 2 cm in width of the skin and subcutaneous tissue. Hemostasis was then achieved the wound was profusely washed with saline, the wound was then closed in layers using #3-0 Vicryl for the subcutaneous tissue and pat for the skin. An incisional wound VAC was placed on top and a compressive dressing overlying the wound VAC, an abdominal binder was applied. At the end of the procedure all counts were correct, the patient tolerated well the procedure and was transferred to the ICU in a stable but guarded condition.
--- NOTE | 2023-11-02 23:05 | ANE.PACU2 ---
Inpatient post-anesthesia follow up: Airway intact: Yes Vital signs: Temperature 98.8 F Pulse Rate 113 Respiratory Rate 22 Blood Pressure 109/64 Pulse Oximetry 92 Oxygen Delivery Me thod Nasal Cannula Oxygen Flow Rate 4 Fraction of Inspir ed Oxygen Hydration adequate: Yes Nausea and vomiting: No Pain level: 1 Mental status: Baseline
[2023-11-02] MEDS: piperacillin-tazobactam 3.375 GM in sodium chloride 0.9% (plus) 50 ML IV (23:26)
[2023-11-03] VITALS (62 sets, daily range): BP systolic 99–134; BP diastolic 61–77; PULSE 95–113; RESP 14–48; TEMP 37.1; O2SAT 88–99
--- NOTE | 2023-11-03 00:40 | PC.NURSE ---
Attempted calls to family x2 post procedure. Left voicemail. Patient is resting comfortably in bed. Follows commands and vitals remain within limits. JENNIFER wound vac in place with no drainage.
[2023-11-03 01:55] LABS: Add Urine Microscopic? NO; Charge for UA Resulting for Rev
[2023-11-03 02:19] LABS: Bilirubin Urine Neg (Negative); Blood Urine Neg (Negative); Glucose Urine UA Norm (Normal); Ketones Urine 1+ (Negative); Leukocyte Esterase Urine Negative (Negative); Nitrate Urine Negative (Negative); Protein Urine Neg (Negative); Specific Gravity, Urine 1.025 (1.005-1.030); Urine Appearance Clear (CLEAR); Urine Color Yellow (Yellow); Urobilinogen Urine Norm (Negative); pH Urine 5 (5-7)
[2023-11-03] MEDS: sodium chloride 0.9% 1,000 ML 75 ML IV ×2 (03:29→15:43)
[2023-11-03 04:13] LABS: Basophils % 0.1 %; Hematocrit 31.8 % (37-53); Lymphocytes # 0.6 10^3/uL (0.8-4.8); Mean Corpuscular HGB Conc 33.3 g/dL (30-55); Mean Corpuscular Hemoglobin 30.3 pg (27-33); Mean Corpuscular Volume 90.9 fl (82-101); Monocytes # 0.4 10^3/uL (0.2-0.9); Monocytes % 4.8 %; Neutrophils # 7.58 10^3/uL (1.8-7.7); Neutrophils % 87.5 %; Nucleated Red Blood Cells % 0 %; Platelet Count 212 10^3/cmm (157-399); Red Cell Distribution Width 14.2 % (12.1-15.1); White Blood Count 8.67 10^3/uL (3.29-11.43)
[2023-11-03] MEDS: piperacillin-tazobactam 3.375 GM in sodium chloride 0.9% (plus) 50 ML IV ×3 (06:34→22:17)
[2023-11-03] MEDS: albuterol 2.5 mg/3 mL Neb INHALATION ×4 (07:43→19:49)
[2023-11-03] MEDS: budesonide 0.5 mg/2 mL Neb INHALATION ×2 (07:44→19:49)
--- NOTE | 2023-11-03 08:01 | P.PN_ITS ---
Subjective 2 Subjective: I reevaluated the patient after CT scan results show evidence of a possible strangulated ventral hernia. Per patient report well he has not had any nausea or vomit he has not had a bowel movement in about a week, his abdominal pain appears to be worsening. Medications: Reviewed: Yes Vitals/I&O/Wt Last Vital Signs Temp 98.8 F 11/03/23 03:30 Pulse 113 H 11/03/23 07:50 Resp 22 H 11/03/23 07:30 BP 109/64 11/03/23 06:00 Pulse Ox 92 11/03/23 07:30 O2 Del Method Nasal Cannula 11/03/23 07:30 O2 Flow Rate 4 11/03/23 07:30 11/02/23 11/03/23 11/03/23 22:59 06:59 14:59 Intake Total 450 / 2150 765 / 2915 Output Total 775 / 1550 450 / 2000 Balance -325 / 600 315 / 915 Weight last 48 hrs Weight 69.4 kg Weight 69.445 kg Physical Exam 2 Const: GENERAL APPEARANCE: cooperative; not comfortable ORIENTATION/CONSCIOUSNESS: Yes awake, Yes oriented to person, Yes oriented to place and Yes oriented to time HENMT: COMMON NORMALS: normocephalic, atraumatic and external ears normal H EAD & SCALP: normocephalic and atraumatic EXTERNAL EAR: Yes external ears normal OTHER: Dry oropharynx Eye: COMMON NORMALS: Equal, round and reactive pupils present and conjunctivae normal CONJUNCTIVA: Yes conjunctivae normal PUPIL: Yes Equal, round and reactive pupils present EOM: No EOM abnormal Neck/C-Spine: COMMON NORMALS: Thyroid normal GENERAL: Yes normal visual inspection and Yes trachea midline THYROID: Thyroid normal CAROTIDS: No bruit Lymph: LYMPHATIC: No lymphadenopathy Resp: OTHER: Decreased breath sounds and crackles in the RLL. GI: OTHER: Ventral hernia above the umbilicus, that is difficult to reduce, and is tender to palpation. b/l L>R inguinal hernias, both of which are tender to palpation. BS+, nondistended, no rebound, no guarding, no hepatosplenomegaly Extremity: NARRATIVE EXTREMITY EXAM: No cyanosis, clubbing, or pedal edema. Neuro: SENSORIUM/ORIENTATION: Yes oriented to person, Yes oriented to place and Yes oriented to time CRANIAL NERVES: Yes CN normal except as noted S PEECH: speech normal SENSORY EXAM: No sensory level loss detected MOTOR EXAM: 5/5 motor strength present throughout and Normal motor muscle tone present throughout Skin: COMMON NORMALS: no rashes or lesions noted GENERAL SKIN EXAM: no rashes or lesions noted Urinary Catheter Management: Robin: Cath Placed During This Visit: yes, but has since been removed by the nurse Reason for Continuing Indwelling Catheter: Accurate Measurement of Urinary Output in Critically Ill Patients Urinary Catheter Date of Insertion: 11/02/23 Urinary Catheter Time of Insertion: 19:45 Date Urinary Catheter Removed: 11/01/23 Time Urinary Catheter Discontinued: 06:00 Data 11/03/23 03:33 11/02/23 06:49 Micro: Microbiology 10/31/23 08:41 Gram Stain - Final Hip - Left Anaerobic Culture - Preliminary Wound Culture - Preliminary 10/31/23 08:13 Gram Stain - Final Hip - Left Anaerobic Culture - Preliminary Wound Culture - Preliminary 10/31/23 08:16 Gram Stain - Final Hip - Left Tissue Culture - Preliminary A&P Assessment and plan (1) Postoperative hypotension: (2) Acute blood loss as cause of postoperative anemia: (3) Essential hypertension: (4) Peripheral arterial disease: (5) Hyperlipidemia, unspecified: Qualifiers: Hyperlipidemia type: mixed hyperlipidemia Qualified Code(s): E78.2 - Mixed hyperlipidemia (6) Panlobular emphysema: (7) Incarcerated hernia of abdominal cavity: Plan Mr. Sapp is a 73yoman w/ HTN, HLD, Panlobular Emphysema, PAD, who is s/p a R. 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 The Hospitalist Service was consulted on 11/01/2023 for postop hypotension. Per review w/ the pharmacist, the patient received 1L NS bolus at 6:26am prior to surgery. He became hypotensive post-op and was given 1L in the evening of 10/31 around 21:00. The patient received another 500cc bolus in the early AM of 11/01. The patient was transfused 1unit prbc in the morning of 11/01. His BP appeared to improve until the early AM hrs of 11/02 when he became hypotensive to as low as 60/28mmHg, despite 1L NS, so he was transferred to the ICU and started on Midodrine. The patient's exam was significant for an incarcerated ventral/umbilical and bilateral L>R inguinal hernia. The patient's primary attending, Dr. Dahl, was notified, of my concerns, and I proposed obtaining a CT abd/pelvis and consulting general surgery. She transferred to the service over to the hospitalist and recommended consulting general surgery. General surgery was consulted, who saw the patient and believes that the patient has an incarcerated hernia, but there is no concern for bowel obstruction at this time. Per Gen Surg, he will likely need an elective repair in the future. Gen Surgery plans to f/u the CT abd/pelvis w/o IV contrast but w/ oral contrast ordered. #S/p L. BENJAMIN on 10/31/2023 for Osteoarthritis and AVM - Orthopedic surgery's procedure note says R. BENJAMIN, but the visualized incision is on the left hip. #Post-op Hypotension: - On midodrine - continue - F/u CXR, and UA. Low threshhold for ordering a CTA chest to r/o PE, but will have to be mindful of potential PILAR given long episodes of hypotension. #Post-op Acute blood loss anemia: Estimated Blood loss of 350cc. S/p IVF w/ no improvement in BP. - s/p 1unit prbc on 11/01/2023 - F/u iron studies #Incarcerated Abdominal hernias: Gen Surgery consulted. CT abd/pelvis ordered. #Constipation: Laxatives prn. #HTN: Anihypertensives held. #HLD: On Atorvastatn #Panlobular Emphysema: Resumed nebulizer treatment and inhalers. F/u CXR & sputum cx. #chronic low back ban w/ radiculopathy #Peripheral artery disease: On Aspirin/Atorvastatin, and Cilostazol. Held Cilostazol DVT ppx: SCD Coding Level of Care Code Acute Code for Chg Fwd Diagnoses Postoperative hypotension I95.81 Acute blood loss as cause of postoperative anemia D62 Essential hypertension I10 Peripheral arterial disease I73.9 Mixed hyperlipidemia E78.2 Hyperlipidemia type: mixed hyperlipidemia Panlobular emphysema J43.1 Incarcerated hernia of abdominal cavity K45.0
--- NOTE | 2023-11-03 08:07 | P.PN_ITS ---
Subjective 2 Subjective: The patient is seen s/p laparotomy with 20cm of small bowel resected. Once he was seen, he was getting a nebulizer treatment. He also had an NG tube in place w/ bilious fluid. He states that he feels better. He endorses abdominal pain at the incision site, but he states that the pain is tolerable. His iron studies show that he is iron deficient, and he is vitamin B12 deficient. When the patient was asked whether he has ever had a colonoscopy, he stated that he has never had a colonoscopy. Vitals/I&O/Wt Last Vital Signs Temp 98.8 F 11/03/23 03:30 Pulse 113 H 11/03/23 07:50 Resp 22 H 11/03/23 07:30 BP 109/64 11/03/23 06:00 Pulse Ox 92 11/03/23 07:30 O2 Del Method Nasal Cannula 11/03/23 07:30 O2 Flow Rate 4 11/03/23 07:30 11/02/23 11/03/23 11/03/23 22:59 06:59 14:59 Intake Total 450 / 2150 765 / 2915 Output Total 775 / 1550 450 / 2000 Balance -325 / 600 315 / 915 Weight last 48 hrs Weight 69.4 kg Weight 69.445 kg Physical Exam 2 Const: GENERAL APPEARANCE: cooperative ORIENTATION/CONSCIOUSNESS: Yes awake, Yes oriented to person, Yes oriented to place and Yes oriented to time HENMT: COMMON NORMALS: normocephalic, atraumatic and external ears normal H EAD & SCALP: normocephalic and atraumatic EXTERNAL EAR: Yes external ears normal MOUTH: Normal oral and palatal mucosa present THROAT: posterior oropharynx normal Eye: OTHER: PEERL, EOMI, conjunctiva normal Neck/C-Spine: COMMON NORMALS: Thyroid normal GENERAL: Yes normal visual inspection and Yes trachea midline THYROID: Thyroid normal CAROTIDS: No bruit Lymph: LYMPHATIC: No lymphadenopathy Resp: OTHER: Mild bilateral anterior expiratory wheezes. Cardio: OTHER: Tachycardic, but no murmurs, rubs, gallops or clicks. No carotid bruit appreciated. 2+ dorsalis pedis and radial pulses appreciated. GI: OTHER: Bowel sounds positive. Mild tenderness to palpation at the incision site, no guarding, no rigidity, no rebound tenderness, no hepatosplenomegaly. b/l L>R inguinal hernias appreciated. Extremity: GENERAL: No clubbing, No cyanosis and No edema Neuro: SENSORIUM/ORIENTATION: Yes oriented to person, Yes oriented to place and Yes oriented to time CRANIAL NERVES: Yes CN normal except as noted S PEECH: speech normal SENSORY EXAM: No sensory level loss detected MOTOR EXAM: 5/5 motor strength present throughout and Normal motor muscle tone present throughout Psych: COMMON NORMALS: Normal thought process present and speech normal A PPEARANCE: Yes grossly normal ATTITUDE: Yes calm and Yes engaged A CTIVITY/MOTOR BEHAVIOR: Yes appropriate eye contact SPEECH: Yes normal speech MOOD & AFFECT: Yes sad (Due to abdominal pain) THOUGHT PROCESS: Normal thought process present THOUGHT CONTENT: Yes Normal thought content present ATTENTION/CONCENTRATION: Yes attention grossly intact Skin: NARRATIVE SKIN EXAM: Patient has no rashes or lesions noted; however he has an abdominal incision at the site of his laparotomy, that is covered at this time with an abdominal binder. Urinary Catheter Management: Robin: Cath Placed During This Visit: yes, but has since been removed by the nurse Reason for Continuing Indwelling Catheter: Accurate Measurement of Urinary Output in Critically Ill Patients Urinary Catheter Date of Insertion: 11/02/23 Urinary Catheter Time of Insertion: 19:45 Date Urinary Catheter Removed: 11/01/23 Time Urinary Catheter Discontinued: 06:00 Data 11/03/23 03:33 11/02/23 06:49 Micro: Microbiology 10/31/23 08:41 Gram Stain - Final Hip - Left Anaerobic Culture - Preliminary Wound Culture - Preliminary 10/31/23 08:13 Gram Stain - Final Hip - Left Anaerobic Culture - Preliminary Wound Culture - Preliminary 10/31/23 08:16 Gram Stain - Final Hip - Left Tissue Culture - Preliminary Attestations 2 Medical Necessity Statement*: Mr. Sapp is a 73yoman w/ HTN, HLD, Panlobular Emphysema, PAD, who is s/p a R. 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 The Hospitalist Service was consulted on 11/01/2023 for postop hypotension. Per review w/ the pharmacist, the patient received 1L NS bolus at 6:26am prior to surgery. He became hypotensive post-op and was given 1L in the evening of 10/31 around 21:00. The patient received another 500cc bolus in the early AM of 11/01. The patient was transfused 1unit prbc in the morning of 11/01. His BP appeared to improve until the early AM hrs of 11/02 when he became hypotensive to as low as 60/28mmHg, despite 1L NS, so he was transferred to the ICU and started on Midodrine. The patient's exam was significant for an incarcerated ventral/umbilical and bilateral L>R inguinal hernia. The patient's primary attending, Dr. Dahl, was notified, of my concerns, and I proposed obtaining a CT abd/pelvis and consulting general surgery. She transferred to the service over to the hospitalist and recommended consulting general surgery. General surgery was consulted, who saw the patient and believes that the patient has an incarcerated hernia, but there is no concern for bowel obstruction at this time. Per Gen Surg, he will likely need an elective repair in the future. Gen Surgery plans to f/u the CT abd/pelvis w/o IV contrast but w/ oral contrast ordered. #S/p L. BENJAMIN on 10/31/2023 for Osteoarthritis and AVM - Orthopedic surgery's procedure note sa ys R. BENJAMIN, but the visualized incision is on the left hip. #Post-op Hypotension: - On midodrine - continue - F/u CXR, and UA. Low threshhold for o rdering a CTA chest to r/o PE, but will have to be mindful of potential PILAR given long episodes of hypotension. #Post-op Acute blood loss anemia: Estimated Blood loss of 350cc. S/p IVF w/ no improvement in BP. - s/p 1unit prbc on 11/01/2023 #Iron deficiency anemia: He has never had a colonoscopy. I have advised him that he needs to have a colonoscopy at some point in the near future. - start iron sucrose x 5 days #vitamin b12 deficiency: Start Cyanocobalamin IM daily #Incarcerated Abdominal hernias: Gen Surgery consulted. CT abd/pelvis ordered. #Constipation: Laxatives prn. #HTN: Anihypertensives held. #HLD: On Atorvastatn #Panlobular Emphysema: Resumed nebulizer treatment and inhalers. F/u CXR & sputum cx. #chronic low back ban w/ radiculopathy #Peripheral artery disease: On Aspirin/Atorvastatin, and Cilostazol. Held Cilostazol DVT ppx: SCD - defer to Gen Surgery to initiate anticoagulation Coding Level of Care Code Acute Code for Chg Fwd
[2023-11-03] MEDS: mupirocin oint 22 gm 1 APPLIC NASAL ×2 (10:12→18:18)
[2023-11-03] MEDS: latanoprost 0.005% Op Soln 2.5 mL Btl 1 DROP EYE-BOTH (10:12)
[2023-11-03] MEDS: cyanocobalamin 1,000 mcg/mL SDV 1000 MCG IM (10:13)
--- NOTE | 2023-11-03 10:32 | P.PN_ITS ---
Subjective 2 Subjective: 73-year-old male who is 12 hours post op status post primary repair of strangulated ventral hernia, laparotomy and bowel resection with primary anastomosis. Patient is doing well after surgery, no significant abdominal pain, was able to move with physical therapy this morning, no gas or bowel movement yet. Vitals/I&O/Wt Last Vital Signs Temp 98.8 F 11/03/23 03:30 Pulse 113 H 11/03/23 07:50 Resp 22 H 11/03/23 07:30 BP 109/64 11/03/23 06:00 Pulse Ox 92 11/03/23 07:30 O2 Del Method Nasal Cannula 11/03/23 07:30 O2 Flow Rate 4 11/03/23 07:30 11/02/23 11/03/23 11/03/23 22:59 06:59 14:59 Intake Total 450 / 2150 765 / 2915 400 / 400 Output Total 775 / 1550 450 / 2000 1025 / 1025 Balance -325 / 600 315 / 915 -625 / -625 Weight last 48 hrs Weight 153 lb Weight 153 lb 1.6 oz Physical Exam 2 HENMT: OTHER: NG tube in place with bilious output GI: OTHER: Surgical incision is covered with an incisional wound VAC, on top of that there is a compressive dressing and abdominal binder, abdominal exam otherwise shows mildly tender abdomen no distention. : OTHER: Robin catheter noted in place, there is blood-tinged in the urine, per nursing report this happened during physical therapy mobilization. Urinary Catheter Management: Robin: Cath Placed During This Visit: yes, but has since been removed by the nurse Reason for Continuing Indwelling Catheter: Accurate Measurement of Urinary Output in Critically Ill Patients Urinary Catheter Date of Insertion: 11/02/23 Urinary Catheter Time of Insertion: 19:45 Date Urinary Catheter Removed: 11/01/23 Time Urinary Catheter Discontinued: 06:00 Data 11/03/23 03:33 11/02/23 06:49 Micro: Microbiology 10/31/23 08:41 Gram Stain - Final Hip - Left Anaerobic Culture - Preliminary Wound Culture - Preliminary 10/31/23 08:13 Gram Stain - Final Hip - Left Anaerobic Culture - Preliminary Wound Culture - Preliminary 10/31/23 08:16 Gram Stain - Final Hip - Left Tissue Culture - Preliminary A&P Assessment and plan (1) Abdominal hernia: (2) Strangulated ventral hernia: Plan Patient is progressing as expected, vital signs no significant change from preop levels, white count is normal this morning, abdominal exam is appropriate for the kind of operation the patient. My recommendation is for early mobilization, once patient is mobilizing and blood tinge in the urine clears Robin catheter can be removed. NG tube should stay for another 24 or 48 hours to await for return of bowel function. I have instructed the patient on limiting the use of abdominal muscles as he receive a primary repair due to the need of the small bowel resection. Patient shows understanding we will continue to monitor his clinical condition on a daily basis. Attestations 2 Medical Necessity Statement*: Patient will require at least 2 more midnights of hospital stay for management and postoperative care after laparotomy with bowel resection for strangulated ventral hernia Coding Level of Care Code Acute Code for Chg Fwd Diagnoses Abdominal hernia K46.9 Strangulated ventral hernia K43.6
--- NOTE | 2023-11-03 15:15 | PC.OT ---
OT TO HOLD DUE TO S/P SURGERY.
[2023-11-03] MEDS: chlorhexidine gluconate 0.12% Btl 473 mL 30 ML MUCOUS MEM ×3 (15:40→22:15)
--- NOTE | 2023-11-03 19:11 | P.PN_ITS ---
Subjective 2 Subjective: Patient is seen following his open primary repair of ventral hernia with laparotomy and small bowel resection with primary anastomosis. He is feeling much better today. His main pain yesterday was related to his hernia. His motion is restricted, and he is not able to participate with physical therapy at the moment secondary to restrictions placed by general surgery. Medications: Reviewed: Yes Vitals/I&O/Wt Last Vital Signs Temp 98.8 F 11/03/23 03:30 Pulse 101 H 11/03/23 15:23 Resp 17 11/03/23 15:13 BP 109/64 11/03/23 06:00 Pulse Ox 98 11/03/23 15:13 O2 Del Method Nasal Cannula 11/03/23 15:13 O2 Flow Rate 3 11/03/23 15:13 11/03/23 11/03/23 11/03/23 06:59 14:59 22:59 Intake Total 765 / 2915 450 / 450 1417.5 / 1867.5 Output Total 450 / 2000 1025 / 1025 800 / 1825 Balance 315 / 915 -575 / -575 617.5 / 42.5 Weight last 48 hrs Weight 153 lb Weight 153 lb 1.6 oz Physical Exam 2 Const: COMMON NORMALS: no acute distress, average body habitus, patient oriented x3 and alert GENERAL APPEARANCE: cooperative and comfortable O RIENTATION/CONSCIOUSNESS: Yes awake HENMT: COMMON NORMALS: normocephalic and atraumatic HEAD & SCALP: n ormocephalic and atraumatic Eye: GENERAL EYE: appearance normal, both eyes and all related structures Chest: COMMONS NORMALS: normal inspection of the chest Resp: COMMON NORMALS: normal respiratory effort EFFORT & INSPECTION: Yes able to speak in complete sentences and Yes symmetric chest movement Extremity: LEFT LOWER EXTREMITY: Yes hip joint (Dressing is dry and intact) Left hip: Yes ROM (Not evaluated) Neuro: COMMON NORMALS: patient oriented x3 SENSORIUM/ORIENTATION: Yes alert Psych: COMMON NORMALS: mental status grossly normal APPEARANCE: Yes grossly normal ATTITUDE: Yes calm and Yes engaged ATTENTION/CONCENTRATION: Yes attention grossly intact Skin: COMMON NORMALS: no rashes or lesions noted GENERAL SKIN EXAM: no rashes or lesions noted Urinary Catheter Management: Robin: Cath Placed During This Visit: yes, but has since been removed by the nurse Reason for Continuing Indwelling Catheter: Accurate Measurement of Urinary Output in Critically Ill Patients Urinary Catheter Date of Insertion: 11/02/23 Urinary Catheter Time of Insertion: 19:45 Date Urinary Catheter Removed: 11/01/23 Time Urinary Catheter Discontinued: 06:00 Data 11/05/23 05:15 11/05/23 05:15 Micro: Microbiology 11/03/23 10:00 Gram Stain - Final Sputum - Expectorated Sputum 10/31/23 08:13 Gram Stain - Final Hip - Left Anaerobic Culture - Preliminary Wound Culture - Final 10/31/23 08:41 Gram Stain - Final Hip - Left Anaerobic Culture - Preliminary Wound Culture - Final 10/31/23 08:16 Gram Stain - Final Hip - Left Tissue Culture - Final A&P Assessment and plan (1) History of total left hip arthroplasty: Patient is doing well following left total hip arthroplasty. The patient has had a rather dillan course following his total hip arthroplasty. Last evening, he underwent urgent open primary repair of ventral hernia with laparotomy and small bowel resection and primary anastomosis. Today, he is seen, and he is at bedrest restriction secondary to the general surgery procedure. Hopefully, he will be able to begin physical therapy with regards to his hip. He will likely require correction at the time of discharge. (2) Avascular necrosis of bone of left hip: (3) Deformity of left femur: Attestations 2 Medical Necessity Statement*: Ongoing care following left total hip arthroplasty and subsequent urgent open primary repair of ventral hernia with laparotomy and small bowel resection with primary anastomosis. Coding Level of Care Code Acute Code for Chg Fwd Diagnoses History of total left hip arthroplasty Z96.642 Avascular necrosis of bone of left hip M87.052 Deformity of left femur M21.852
[2023-11-04] VITALS (47 sets, daily range): BP systolic 116–149; BP diastolic 64–79; PULSE 84–102; RESP 15–41; TEMP 36.4–37; O2SAT 86–100
[2023-11-04] MEDS: sodium chloride 0.9% 1,000 ML 75 ML IV ×2 (05:06→22:09)
[2023-11-04] MEDS: piperacillin-tazobactam 3.375 GM in sodium chloride 0.9% (plus) 50 ML IV ×3 (06:23→22:09)
--- NOTE | 2023-11-04 06:54 | P.PN_ITS ---
Subjective 2 Subjective: Postoperative day 1 status post repair of a strangulated ventral hernia, small bowel resection primary stenosis. Patient is doing well, pain is well- controlled. Denies any flatus yet, NG output was about 700 yesterday but overnight it has been only 50 cc, no other significant complaints. Vitals/I&O/Wt Last Vital Signs Temp 98.8 F 11/03/23 03:30 Pulse 91 11/04/23 06:00 Resp 21 H 11/04/23 06:00 BP 132/72 11/04/23 06:00 Pulse Ox 99 11/04/23 06:00 O2 Del Method Nasal Cannula 11/03/23 19:50 O2 Flow Rate 2 11/03/23 19:50 11/03/23 11/03/23 11/04/23 14:59 22:59 06:59 Intake Total 450 / 450 1467.5 / 1917.5 1050 / 2967.5 Output Total 1025 / 1025 800 / 1825 700 / 2525 Balance -575 / -575 667.5 / 92.5 350 / 442.5 Weight last 48 hrs Weight 156 lb Weight 153 lb Physical Exam 2 GI: OTHER: Abdominal binder in place, abdomen is soft, minimally tender to palpation which is appropriate, no abdominal distention. Urinary Catheter Management: Robin: Cath Placed During This Visit: yes, but has since been removed by the nurse Reason for Continuing Indwelling Catheter: Accurate Measurement of Urinary Output in Critically Ill Patients Urinary Catheter Date of Insertion: 11/02/23 Urinary Catheter Time of Insertion: 19:45 Date Urinary Catheter Removed: 11/01/23 Time Urinary Catheter Discontinued: 06:00 Data 11/03/23 03:33 11/02/23 06:49 Micro: Microbiology 11/03/23 10:00 Gram Stain - Final Sputum - Expectorated Sputum 10/31/23 08:13 Gram Stain - Final Hip - Left Anaerobic Culture - Preliminary Wound Culture - Final 10/31/23 08:41 Gram Stain - Final Hip - Left Anaerobic Culture - Preliminary Wound Culture - Final 10/31/23 08:16 Gram Stain - Final Hip - Left Tissue Culture - Final A&P Assessment and plan (1) Strangulated ventral hernia: Plan Patient has a very good progress after strangulated ventral hernia repair that required resection of the small bowel. If output from the NG tube during the morning is low I think it would be appropriate to remove NG tube and start ice chips, will likely start clear liquid diet tomorrow. Robin catheter still in place, once patient is out of the bed and moving around Robin catheter can be removed and a trial of void done. Will continue monitoring abdominal exam vital signs and laboratory workup. Attestations 2 Medical Necessity Statement*: Patient will likely require 24 to 48 hours more of hospital care or postoperative management after small bowel resection and repair of strangulated hernia. Coding Level of Care Code Acute Code for Chg Fwd Diagnoses Strangulated ventral hernia K43.6
[2023-11-04 07:18] LABS: Basophils % 0.1 %; Eosinophils % 0.6 %; Hematocrit 29.6 % (37-53); Lymphocytes # 1.1 10^3/uL (0.8-4.8); Lymphocytes % 15.7 %; Mean Corpuscular HGB Conc 31.4 g/dL (30-55); Mean Corpuscular Hemoglobin 29.4 pg (27-33); Mean Corpuscular Volume 93.7 fl (82-101); Mean Platelet Volume 8.8 fL (7.4-10.4); Monocytes # 0.9 10^3/uL (0.2-0.9); Monocytes % 12.6 %; Neutrophils # 5.01 10^3/uL (1.8-7.7); Neutrophils % 70.6 %; Nucleated Red Blood Cells % 0 %; Platelet Count 260 10^3/cmm (157-399); Red Blood Count 3.16 10^6/uL (3.85-5.65); White Blood Count 7.09 10^3/uL (3.29-11.43)
[2023-11-04 07:43] LABS: Alanine Aminotransferase 7 U/L (0-41); Alkaline Phosphatase 65 U/L (40-130); Anion Gap 14.9 (5-19); Aspartate Amino Transferase 22 U/L (0-40); Blood Urea Nitrogen 31 mg/dL (8-23); Calcium 8.7 mg/dL (8.5-10.5); Carbon Dioxide 22 mmol/L (22-29); Chloride 111 mmol/L (98-107); Globulin 3.1 g/dL (1.3-4.6); Glucose 81 mg/dL (65-115); Magnesium 2.1 mg/dL (1.7-2.3); Osmolality Calculated 304 mOsm/kg (285-295); Phosphorus 2.5 mg/dL (2.5-4.5); Potassium 3.9 mmol/L (3.5-5.1); Sodium 144 mmol/L (136-145); Total Bilirubin 0.4 mg/dL (0.15-1.2); Total Protein 6.1 g/dL (6.6-8.7)
[2023-11-04] MEDS: budesonide 0.5 mg/2 mL Neb INHALATION ×2 (07:49→20:20)
[2023-11-04] MEDS: albuterol 2.5 mg/3 mL Neb INHALATION ×4 (07:49→20:20)
[2023-11-04] MEDS: iron sucrose 200 MG in sodium chloride 0.9% (100 ml) 100 ML 220 MG IV (08:36)
[2023-11-04] MEDS: cholecalciferol (vitamin D3) 1,000 unit Tablet 1000 UNIT PO (08:39)
[2023-11-04] MEDS: iron polysaccharide complex 150 mg Capsule PO ×2 (08:39→17:14)
[2023-11-04] MEDS: multivitamin therapeutic Tablet 1 TAB PO (08:39)
[2023-11-04] MEDS: atorvastatin 40 mg Tablet PO (08:39)
[2023-11-04] MEDS: pantoprazole DR 40 mg Tablet PO (08:39)
[2023-11-04] MEDS: aspirin 325 mg EC Tablet PO (08:39)
[2023-11-04] MEDS: sennosides-docusate Tablet 2 TAB PO ×2 (08:39→17:14)
[2023-11-04] MEDS: acetaminophen 325 mg Tablet 650 MG PO ×2 (08:39→15:33)
[2023-11-04] MEDS: oxyCODONE 5 mg IR Tab/Cap PO ×2 (08:39→15:33)
[2023-11-04] MEDS: cyanocobalamin 1,000 mcg/mL SDV 1000 MCG IM (08:40)
[2023-11-04] MEDS: chlorhexidine gluconate 0.12% Btl 473 mL 30 ML MUCOUS MEM ×2 (08:48→22:01)
[2023-11-04] MEDS: latanoprost 0.005% Op Soln 2.5 mL Btl 1 DROP EYE-BOTH (09:38)
--- NOTE | 2023-11-04 13:00 | P.PN_ITS ---
Subjective 2 Subjective: The patient continues to improve following his small bowel resection with open primary repair of ventral hernia. He was up with physical therapy today and walked a bit. He still has some restriction secondary to the extent of his surgical repair from a general surgical perspective. Medications: Reviewed: Yes Vitals/I&O/Wt Last Vital Signs Temp 97.7 F 11/05/23 04:00 Pulse 88 11/05/23 07:38 Resp 20 H 11/05/23 07:38 BP 162/83 11/05/23 06:00 Pulse Ox 93 11/05/23 07:38 O2 Del Method Room Air 11/05/23 07:38 O2 Flow Rate 1 11/04/23 11:00 11/04/23 11/05/23 11/05/23 22:59 06:59 14:59 Intake Total 1050 / 1210 50 / 1260 Output Total 1100 / 1100 1425 / 2525 Balance -50 / 110 -1375 / -1265 Weight last 48 hrs Weight 155 lb Weight 156 lb Physical Exam 2 Const: COMMON NORMALS: no acute distress, average body habitus, patient oriented x3 and alert GENERAL APPEARANCE: cooperative and comfortable O RIENTATION/CONSCIOUSNESS: Yes awake HENMT: COMMON NORMALS: normocephalic and atraumatic HEAD & SCALP: n ormocephalic and atraumatic Eye: GENERAL EYE: appearance normal, both eyes and all related structures Chest: COMMONS NORMALS: normal inspection of the chest Resp: COMMON NORMALS: normal respiratory effort EFFORT & INSPECTION: Yes able to speak in complete sentences and Yes symmetric chest movement Extremity: LEFT LOWER EXTREMITY: Yes hip joint (Dressing is dry and intact.) Left hip: Yes ROM (Not evaluated.) and Yes neurovascular exam (Intact distally with no evidence of DVT.) Neuro: COMMON NORMALS: patient oriented x3 SENSORIUM/ORIENTATION: Yes alert Psych: COMMON NORMALS: mental status grossly normal APPEARANCE: Yes grossly normal ATTITUDE: Yes calm and Yes engaged ATTENTION/CONCENTRATION: Yes attention grossly intact Skin: COMMON NORMALS: no rashes or lesions noted GENERAL SKIN EXAM: no rashes or lesions noted Urinary Catheter Management: Robin: Cath Placed During This Visit: yes, but has since been removed by the nurse Reason for Continuing Indwelling Catheter: Accurate Measurement of Urinary Output in Critically Ill Patients Urinary Catheter Date of Insertion: 11/02/23 Urinary Catheter Time of Insertion: 19:45 Date Urinary Catheter Removed: 11/01/23 Time Urinary Catheter Discontinued: 06:00 Data 11/05/23 05:15 11/05/23 05:15 Micro: Microbiology 10/31/23 08:41 Gram Stain - Final Hip - Left Anaerobic Culture - Preliminary Wound Culture - Final 10/31/23 08:13 Gram Stain - Final Hip - Left Anaerobic Culture - Preliminary Wound Culture - Final 11/03/23 10:00 Gram Stain - Final Sputum - Expectorated Sputum Sputum Culture - Preliminary A&P Assessment and plan (1) History of total left hip arthroplasty: Patient continues his rehab following left total hip arthroplasty complicated by a incarcerated ventral hernia. Postoperative therapies have been limited secondary to general surgical need for restricted activity following the repair. Patient was up today with physical therapy. He will continue to work on this as tolerated by his general surgical restrictions. Plan will be that he will require chcf at the time of discharge. (2) Avascular necrosis of bone of left hip: (3) Deformity of left femur: Attestations 2 Medical Necessity Statement*: Ongoing care following total hip arthroplasty Coding Level of Care Code Acute Code for Chg Fwd Diagnoses History of total left hip arthroplasty Z96.642 Avascular necrosis of bone of left hip M87.052 Deformity of left femur M21.852
--- NOTE | 2023-11-04 14:49 | PC.NURSE ---
Basia Sapp patients sister can have information about patient
--- NOTE | 2023-11-04 16:07 | P.MISC_ITS ---
Miscellaneous Note Purpose of Documentation: Update on patient care Note: Patient doing well during the day, heart rate is improving, minimal amount of pain on the abdomen. States that he has passed a small amount of gas. NG output has been negligible for the last 12 hours. -NG tube was removed at the bedside -Patient started on ice chips and will r eceive clear liquid diet for breakfast. -Will continue to monitor. -Continue ambulation, once out of bed Fo nanette catheter should be discontinued.
--- NOTE | 2023-11-04 18:26 | P.PN_ITS ---
Subjective 2 Subjective: Patient still hurting with cough. And reports his pain at rest is 5 out of 10. He is anxiously awaiting Mountain Dew. Vitals/I&O/Wt Last Vital Signs Temp 98.4 F 11/04/23 18:06 Pulse 97 11/04/23 15:25 Resp 20 H 11/04/23 15:15 BP 132/72 11/04/23 06:00 Pulse Ox 92 11/04/23 15:15 O2 Del Method Room Air 11/04/23 15:15 O2 Flow Rate 1 11/04/23 11:00 11/04/23 11/04/23 11/04/23 06:59 14:59 22:59 Intake Total 1050 / 2967.5 160 / 160 Output Total 700 / 2525 1100 / 1100 Balance 350 / 442.5 160 / 160 -1100 / -940 Weight last 48 hrs Weight 70.76 kg Weight 69.4 kg Physical Exam 2 Narrative: Mild distress caused by coughing. Heart: Regular normal S1-S2 without murmurs clicks gallops or rubs Lungs: Clear to auscultation without wheezes rales or rhonchi Abdomen: Tight binder removed however incision dressed thoroughly no obvious infection or bleeding present binder replaced with RN Extremities no clubbing cyanosis or edema Urinary Catheter Management: Robin: Cath Placed During This Visit: yes, but has since been removed by the nurse Reason for Continuing Indwelling Catheter: Accurate Measurement of Urinary Output in Critically Ill Patients Urinary Catheter Date of Insertion: 11/02/23 Urinary Catheter Time of Insertion: 19:45 Date Urinary Catheter Removed: 11/01/23 Time Urinary Catheter Discontinued: 06:00 Data 11/04/23 06:51 11/04/23 06:51 Micro: Microbiology 10/31/23 08:41 Gram Stain - Final Hip - Left Anaerobic Culture - Preliminary Wound Culture - Final 10/31/23 08:13 Gram Stain - Final Hip - Left Anaerobic Culture - Preliminary Wound Culture - Final 11/03/23 10:00 Gram Stain - Final Sputum - Expectorated Sputum Sputum Culture - Preliminary 10/31/23 08:16 Gram Stain - Final Hip - Left Tissue Culture - Final A&P Assessment and plan (1) Postoperative hypotension: (2) Acute blood loss as cause of postoperative anemia: (3) Essential hypertension: (4) Peripheral arterial disease: (5) Hyperlipidemia, unspecified: Qualifiers: Hyperlipidemia type: mixed hyperlipidemia Qualified Code(s): E78.2 - Mixed hyperlipidemia (6) Panlobular emphysema: (7) Incarcerated hernia of abdominal cavity: Plan Mr. Sapp is a 73yoman w/ HTN, HLD, Panlobular Emphysema, PAD, who is s/p a L. 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 The Hospitalist Service was consulted on 11/01/2023 for postop hypotension. The patient was given normal saline and 1 unit PRBC. And then started on midodrine Subsequently the patient was found to have an incarcerated ventral/umbilical hernia and bilateral L>R inguinal hernias. Status post surgical repair on 11/02/2023 without mesh. Surgery plans n.p.o. for 48 hours that should start eating tomorrow Transfer to floor unable due to census today DVT ppx: SCD Attestations 2 Medical Necessity Statement*: Patient requires continued hospitalization status post left BENJAMIN and incarcerated ventral hernia. Coding Level of Care Code Acute Code for Chg Fwd Diagnoses Postoperative hypotension I95.81 Acute blood loss as cause of postoperative anemia D62 Essential hypertension I10 Peripheral arterial disease I73.9 Mixed hyperlipidemia E78.2 Hyperlipidemia type: mixed hyperlipidemia Panlobular emphysema J43.1 Incarcerated hernia of abdominal cavity K45.0
--- NOTE | 2023-11-04 22:30 | PC.NURSE ---
Patient resting in bed. Patient had 8 run of asystole. EKG performed at bedside. No changes in rhythm noted. Dr Morton notified.
[2023-11-05] VITALS (19 sets, daily range): BP systolic 129–162; BP diastolic 73–87; PULSE 67–101; RESP 18–30; TEMP 36.5–37.1; O2SAT 92–97
[2023-11-05] MEDS: acetaminophen 325 mg Tablet 650 MG PO ×4 (00:43→23:26)
[2023-11-05 06:07] LABS: Basophils % 0.6 %; Eosinophils # 0.2 10^3/uL (0.0-0.8); Eosinophils % 3.1 %; Hematocrit 28.4 % (37-53); Lymphocytes # 0.9 10^3/uL (0.8-4.8); Lymphocytes % 13.5 %; Mean Corpuscular HGB Conc 32.7 g/dL (30-55); Mean Corpuscular Hemoglobin 30.3 pg (27-33); Mean Corpuscular Volume 92.5 fl (82-101); Mean Platelet Volume 8.8 fL (7.4-10.4); Monocytes # 0.7 10^3/uL (0.2-0.9); Monocytes % 10.5 %; Neutrophils # 4.89 10^3/uL (1.8-7.7); Nucleated Red Blood Cells % 0 %; Platelet Count 283 10^3/cmm (157-399); Red Blood Count 3.07 10^6/uL (3.85-5.65); White Blood Count 6.79 10^3/uL (3.29-11.43)
[2023-11-05] MEDS: piperacillin-tazobactam 3.375 GM in sodium chloride 0.9% (plus) 50 ML IV ×3 (06:14→23:25)
[2023-11-05 06:27] LABS: Anion Gap 19.5 (5-19); Blood Urea Nitrogen 22 mg/dL (8-23); Calcium 8.5 mg/dL (8.5-10.5); Carbon Dioxide 21 mmol/L (22-29); Chloride 105 mmol/L (98-107); Glucose 62 mg/dL (65-115); Magnesium 1.9 mg/dL (1.7-2.3); Osmolality Calculated 295 mOsm/kg (285-295); Phosphorus 2.9 mg/dL (2.5-4.5); Potassium 3.5 mmol/L (3.5-5.1); Sodium 142 mmol/L (136-145)
[2023-11-05 06:30] LABS: Alanine Aminotransferase < 5 U/L (0-41); Albumin Level 3.1 g/dL (3.5-5.2); Alkaline Phosphatase 51 U/L (40-130); Aspartate Amino Transferase 20 U/L (0-40); Globulin 2.7 g/dL (1.3-4.6); Total Bilirubin 0.4 mg/dL (0.15-1.2); Total Protein 5.8 g/dL (6.6-8.7)
[2023-11-05] MEDS: albuterol 2.5 mg/3 mL Neb INHALATION ×4 (07:38→20:08)
[2023-11-05] MEDS: budesonide 0.5 mg/2 mL Neb INHALATION ×2 (07:38→20:08)
[2023-11-05] MEDS: iron sucrose 200 MG in sodium chloride 0.9% (100 ml) 100 ML 220 MG IV (08:54)
[2023-11-05] MEDS: aspirin 325 mg EC Tablet PO (08:54)
[2023-11-05] MEDS: oxyCODONE 5 mg IR Tab/Cap PO (08:54)
[2023-11-05] MEDS: pantoprazole DR 40 mg Tablet PO (08:55)
[2023-11-05] MEDS: iron polysaccharide complex 150 mg Capsule PO ×2 (08:55→17:20)
[2023-11-05] MEDS: cyanocobalamin 1,000 mcg/mL SDV 1000 MCG IM (08:55)
[2023-11-05] MEDS: latanoprost 0.005% Op Soln 2.5 mL Btl 1 DROP EYE-BOTH (08:55)
[2023-11-05] MEDS: chlorhexidine gluconate 0.12% Btl 473 mL 30 ML MUCOUS MEM ×3 (08:55→20:59)
[2023-11-05] MEDS: sodium chloride 0.9% 1,000 ML 75 ML IV (11:57)
--- NOTE | 2023-11-05 13:07 | P.PN_ITS ---
Subjective 2 Subjective: Postoperative day 2 status post laparotomy for small bowel resection and primary repair of ventral hernia due to his strangulation. Patient has been having unremarkable postoperative course, NG tube was removed yesterday, since then patient has been passing gas and tolerating clear liquid diet, no bowel movement yet. No significant abdominal pain. Vitals/I&O/Wt Last Vital Signs Temp 97.7 F 11/05/23 04:00 Pulse 98 11/05/23 12:00 Resp 29 H 11/05/23 12:00 BP 137/87 11/05/23 12:00 Pulse Ox 97 11/05/23 12:00 O2 Del Method Room Air 11/05/23 11:13 O2 Flow Rate 1 11/04/23 11:00 11/04/23 11/05/23 11/05/23 22:59 06:59 14:59 Intake Total 1050 / 1210 50 / 1260 1518 / 1518 Output Total 1100 / 1100 1425 / 2525 Balance -50 / 110 -1375 / -1265 1518 / 1518 Weight last 48 hrs Weight 155 lb Weight 156 lb Physical Exam 2 GI: OTHER: Abdomen is soft mildly tender, surgical incision continues to be covered by occlusive dressing, I will remove the dressing evaluate the wound tomorrow. Urinary Catheter Management: Robin: Cath Placed During This Visit: yes, but has since been removed by the nurse Reason for Continuing Indwelling Catheter: Accurate Measurement of Urinary Output in Critically Ill Patients Urinary Catheter Date of Insertion: 11/02/23 Urinary Catheter Time of Insertion: 19:45 Date Urinary Catheter Removed: 11/01/23 Time Urinary Catheter Discontinued: 06:00 Data 11/05/23 05:15 11/05/23 05:15 Micro: Microbiology 10/31/23 08:41 Gram Stain - Final Hip - Left Anaerobic Culture - Preliminary Wound Culture - Final 10/31/23 08:13 Gram Stain - Final Hip - Left Anaerobic Culture - Preliminary Wound Culture - Final 11/03/23 10:00 Gram Stain - Final Sputum - Expectorated Sputum Sputum Culture - Preliminary Yeast species A&P Assessment and plan (1) Strangulated ventral hernia: Plan Patient with very good progress after emergent repair of a strangulated hernia that required bowel resection. Plan is to advance to full liquids today and if tolerating and having a bowel movement we can plan on advancing to regular diet tomorrow. I will plan to remove the incisional wound VAC tomorrow to evaluate the wound and if healing well patient should be able to be discharged in the next 24 to 48 hours. Robin catheter to be removed today, trial void pending. Appreciate management per primary team. Attestations 2 Medical Necessity Statement*: Patient will require 24 to 48 hours more of hospital stay for postoperative management after small bowel resection and repair of a strangulated ventral hernia. Coding Level of Care Code Acute Code for [facility] Diagnoses Strangulated ventral hernia K43.6
--- NOTE | 2023-11-05 13:11 | P.PN_ITS ---
Subjective 2 Subjective: Seen this morning. Patient sitting up in chair doing well. He had a sinus pause last night for 7 seconds. He states that he stopped breathing at night sometimes however has not ever been told that he had a sinus pause. He does agree that this was caught since he was on the monitor in the hospital. I suggested a sleep study to him but he states he is not interested in having a sleep study done and declined in the past as well. The sinus pauses overnight when he was sleeping. Vitals/I&O/Wt Last Vital Signs Temp 97.7 F 11/05/23 04:00 Pulse 98 11/05/23 12:00 Resp 29 H 11/05/23 12:00 BP 137/87 11/05/23 12:00 Pulse Ox 97 11/05/23 12:00 O2 Del Method Room Air 11/05/23 11:13 O2 Flow Rate 1 11/04/23 11:00 11/04/23 11/05/23 11/05/23 22:59 06:59 14:59 Intake Total 1050 / 1210 50 / 1260 1518 / 1518 Output Total 1100 / 1100 1425 / 2525 Balance -50 / 110 -1375 / -1265 1518 / 1518 Weight last 48 hrs Weight 70.307 kg Weight 70.76 kg Physical Exam 2 Narrative: No acute distress Sitting up in recliner Normal S1-S2 regular rate rhythm Abdomen appropriately tender to palpation Extremities within normal limits, left hip covered with Band-Aid. Lungs clear to auscultation bilaterally no wheezes no rhonchi. Urinary Catheter Management: Robin: Cath Placed During This Visit: yes, but has since been removed by the nurse Reason for Continuing Indwelling Catheter: Accurate Measurement of Urinary Output in Critically Ill Patients Urinary Catheter Date of Insertion: 11/02/23 Urinary Catheter Time of Insertion: 19:45 Date Urinary Catheter Removed: 11/01/23 Time Urinary Catheter Discontinued: 06:00 Data 11/05/23 05:15 11/05/23 05:15 Micro: Microbiology 10/31/23 08:41 Gram Stain - Final Hip - Left Anaerobic Culture - Preliminary Wound Culture - Final 10/31/23 08:13 Gram Stain - Final Hip - Left Anaerobic Culture - Preliminary Wound Culture - Final 11/03/23 10:00 Gram Stain - Final Sputum - Expectorated Sputum Sputum Culture - Preliminary Yeast species A&P Assessment and plan (1) Postoperative hypotension: (2) Acute blood loss as cause of postoperative anemia: (3) Essential hypertension: (4) Peripheral arterial disease: (5) Hyperlipidemia, unspecified: Qualifiers: Hyperlipidemia type: mixed hyperlipidemia Qualified Code(s): E78.2 - Mixed hyperlipidemia (6) Panlobular emphysema: (7) Incarcerated hernia of abdominal cavity: Plan Mr. Sapp is a 73yoman w/ HTN, HLD, Panlobular Emphysema, PAD, who is s/p a L. 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 The Hospitalist Service was consulted on 11/01/2023 for postop hypotension. The patient was given normal saline and 1 unit PRBC. And then started on midodrine Subsequently the patient was found to have an incarcerated ventral/umbilical hernia and bilateral L>R inguinal hernias. Status post surgical repair on 11/02/2023 without mesh. Diet has been started and he will be transition to full liquids today. Discussed with Dr. Mica Bangura. Sinus pause, sinus bradycardia overnight ? Patient not interested in sleep study. ? We will do overnight pulse ox ? Will provide for referral for sleep study in case patient changes his mind as an outpatient. ? Will set up with a event monitor for 30 days at time of discharge ? Referral to cardiology as an outpatient. Briefly discussed with cardiology on the phone. Transfer to cardiac stepdown unit today. DVT ppx: SCD Disposition: Patient has been accepted at [facility] however is not interested in going there anymore. He would like to get a referral to [facility]. Will update case management Attestations 2 Medical Necessity Statement*: Overnight pulse ox tonight. Continue transition to full liquids today. Possible discharge in next 24 to 48 hours. Diagnoses Postoperative hypotension I95.81 Acute blood loss as cause of postoperative anemia D62 Essential hypertension I10 Peripheral arterial disease I73.9 Mixed hyperlipidemia E78.2 Hyperlipidemia type: mixed hyperlipidemia Panlobular emphysema J43.1 Incarcerated hernia of abdominal cavity K45.0
--- NOTE | 2023-11-05 13:17 | P.PN_ITS ---
Subjective 2 Subjective: Patient is doing well post operatively for left total hip arthroplasty. Has been up with therapy for some ambulation with walker today. Having post-operative pain, which is managed with medications. The patient continues to improve following his small bowel resection with open primary repair of ventral hernia. He still has some restriction secondary to the extent of his surgical repair from a general surgical perspective. Medications: Reviewed: Yes Vitals/I&O/Wt Last Vital Signs Temp 97.7 F 11/05/23 04:00 Pulse 98 11/05/23 12:00 Resp 29 H 11/05/23 12:00 BP 137/87 11/05/23 12:00 Pulse Ox 97 11/05/23 12:00 O2 Del Method Room Air 11/05/23 11:13 O2 Flow Rate 1 11/04/23 11:00 11/04/23 11/05/23 11/05/23 22:59 06:59 14:59 Intake Total 1050 / 1210 50 / 1260 1518 / 1518 Output Total 1100 / 1100 1425 / 2525 Balance -50 / 110 -1375 / -1265 1518 / 1518 Weight last 48 hrs Weight 155 lb Weight 156 lb Physical Exam 2 Const: COMMON NORMALS: no acute distress, average body habitus, patient oriented x3 and alert GENERAL APPEARANCE: cooperative and comfortable O RIENTATION/CONSCIOUSNESS: Yes awake HENMT: COMMON NORMALS: normocephalic and atraumatic HEAD & SCALP: n ormocephalic and atraumatic Chest: COMMONS NORMALS: normal inspection of the chest Resp: COMMON NORMALS: normal respiratory effort EFFORT & INSPECTION: Yes able to speak in complete sentences and Yes symmetric chest movement Extremity: LEFT LOWER EXTREMITY: Yes hip joint (Dressing is dry and intact.) Left hip: Yes ROM (Not evaluated.) and Yes neurovascular exam (Intact distally with no evidence of DVT.) and Yes lower leg Left lower leg: Yes special tests Left lower leg special tests: Dillon's sign: Negative Neuro: COMMON NORMALS: patient oriented x3 SENSORIUM/ORIENTATION: Yes alert Psych: COMMON NORMALS: mental status grossly normal APPEARANCE: Yes grossly normal ATTITUDE: Yes calm and Yes engaged ATTENTION/CONCENTRATION: Yes attention grossly intact Skin: COMMON NORMALS: no rashes or lesions noted GENERAL SKIN EXAM: no rashes or lesions noted Urinary Catheter Management: Robin: Cath Placed During This Visit: yes, but has since been removed by the nurse Reason for Continuing Indwelling Catheter: Accurate Measurement of Urinary Output in Critically Ill Patients Urinary Catheter Date of Insertion: 11/02/23 Urinary Catheter Time of Insertion: 19:45 Date Urinary Catheter Removed: 11/01/23 Time Urinary Catheter Discontinued: 06:00 Data 11/05/23 05:15 11/05/23 05:15 Micro: Microbiology 10/31/23 08:41 Gram Stain - Final Hip - Left Anaerobic Culture - Preliminary Wound Culture - Final 10/31/23 08:13 Gram Stain - Final Hip - Left Anaerobic Culture - Preliminary Wound Culture - Final 11/03/23 10:00 Gram Stain - Final Sputum - Expectorated Sputum Sputum Culture - Preliminary Yeast species Xray Ortho: Radiologist's impression: AP Pelvis: LEFT total hip prosthesis is noted. Postoperative changes in the adjacent soft tissues. IMPRESSION: 1. LEFT hip prosthesis in place as noted above. Dictated By: Melvin Arce DO Signed By: Melvin Arce DO Signed Date/Time: 10/31/23 1157 DD/ 1155 A&P Assessment and plan (1) History of total left hip arthroplasty: Mr. Sapp is a 73-year-old male patient who we are following status post left total hip arthroplasty which was performed on November 02, 2023, secondary to avascular necrosis of the left hip. Patient continues his inpatient rehab following left total hip arthroplasty complicated by a incarcerated ventral hernia. Postoperative therapies have been limited secondary to general surgical need for restricted activity following the repair. Patient was up today with physical therapy. He will continue to work on this as tolerated by his general surgical restrictions. At this time he is planning to be moved from ICU to CSU for further postoperative care. We will continue to follow patient while in- house and see him tomorrow. Future Planning: Plan will be that he will require fdc at the time of discharge. We will also plan for him to follow-up in the clinic 2 weeks postoperatively for x-rays and incisional assessment. (2) Avascular necrosis of bone of left hip: (3) Deformity of left femur: Attestations 2 Medical Necessity Statement*: Ongoing care following total hip arthroplasty with medical co-morbidities, as well as for dishcarge planning and post-operative care. Coding Level of Care Code Acute Code for Chg Fwd Diagnoses History of total left hip arthroplasty Z96.642 Avascular necrosis of bone of left hip M87.052 Deformity of left femur M21.852
[2023-11-05] MEDS: calcium carbonate 500 mg Chew Tablet 1000 MG PO (17:20)
[2023-11-05] MEDS: sennosides-docusate Tablet 2 TAB PO (17:20)
[2023-11-06] VITALS (21 sets, daily range): BP systolic 115–141; BP diastolic 71–81; PULSE 63–95; RESP 16–31; TEMP 36.5–36.8; O2SAT 90–100
--- NOTE | 2023-11-06 02:09 | PC.NURSE ---
Noted patient to have 7sec pause and 12sec pauses this evening. Strips placed in chart. Informed Dr Morton. No orders received. Pacer pads in place. Patient denies symptoms. Will continue to monitor.
[2023-11-06 04:36] LABS: Basophils % 0.6 %; Eosinophils # 0.4 10^3/uL (0.0-0.8); Eosinophils % 6.8 %; Hematocrit 31.1 % (37-53); Lymphocytes # 1.1 10^3/uL (0.8-4.8); Lymphocytes % 16.6 %; Mean Corpuscular HGB Conc 32.5 g/dL (30-55); Mean Corpuscular Hemoglobin 29.8 pg (27-33); Mean Corpuscular Volume 91.7 fl (82-101); Mean Platelet Volume 8.6 fL (7.4-10.4); Monocytes # 0.7 10^3/uL (0.2-0.9); Monocytes % 11.1 %; Neutrophils # 4.06 10^3/uL (1.8-7.7); Neutrophils % 64.3 %; Nucleated Red Blood Cells % 0 %; Platelet Count 324 10^3/cmm (157-399); Red Blood Count 3.39 10^6/uL (3.85-5.65); Red Cell Distribution Width 13.5 % (12.1-15.1); White Blood Count 6.32 10^3/uL (3.29-11.43)
[2023-11-06 04:54] LABS: Alanine Aminotransferase 8 U/L (0-41); Alkaline Phosphatase 48 U/L (40-130); Aspartate Amino Transferase 16 U/L (0-40); Globulin 2.9 g/dL (1.3-4.6); Total Bilirubin 0.5 mg/dL (0.15-1.2); Total Protein 5.9 g/dL (6.6-8.7)
[2023-11-06 04:59] LABS: Anion Gap 19.3 (5-19); Blood Urea Nitrogen 14 mg/dL (8-23); Calcium 8.7 mg/dL (8.5-10.5); Carbon Dioxide 23 mmol/L (22-29); Chloride 104 mmol/L (98-107); Glucose 80 mg/dL (65-115); Magnesium 1.8 mg/dL (1.7-2.3); Osmolality Calculated 295 mOsm/kg (285-295); Potassium 3.3 mmol/L (3.5-5.1); Sodium 143 mmol/L (136-145)
[2023-11-06] MEDS: piperacillin-tazobactam 3.375 GM in sodium chloride 0.9% (plus) 50 ML IV ×3 (05:45→23:41)
[2023-11-06] MEDS: albuterol 2.5 mg/3 mL Neb INHALATION ×4 (07:47→19:53)
[2023-11-06] MEDS: budesonide 0.5 mg/2 mL Neb INHALATION ×2 (07:47→19:52)
[2023-11-06] MEDS: cyanocobalamin 1,000 mcg/mL SDV 1000 MCG IM (09:44)
[2023-11-06] MEDS: atorvastatin 40 mg Tablet PO (09:44)
[2023-11-06] MEDS: cholecalciferol (vitamin D3) 1,000 unit Tablet 1000 UNIT PO (09:44)
[2023-11-06] MEDS: multivitamin therapeutic Tablet 1 TAB PO (09:45)
[2023-11-06] MEDS: acetaminophen 325 mg Tablet 650 MG PO (09:45)
[2023-11-06] MEDS: pantoprazole DR 40 mg Tablet PO (09:45)
[2023-11-06] MEDS: iron polysaccharide complex 150 mg Capsule PO ×2 (09:45→17:28)
[2023-11-06] MEDS: aspirin 325 mg EC Tablet PO (09:45)
[2023-11-06] MEDS: iron sucrose 200 MG in sodium chloride 0.9% (100 ml) 100 ML 220 MG IV (09:47)
[2023-11-06] MEDS: oxyCODONE 5 mg IR Tab/Cap PO ×2 (10:09→17:28)
--- NOTE | 2023-11-06 10:29 | P.PN_ITS ---
Subjective 2 Subjective: Postoperative day 3 status post primary repair of strangulated ventral hernia with small bowel resection. Patient is doing very well after surgery. Abdominal pain has been controlled, he is passing gas but has not had a bowel movement yet. Robin catheter was removed and he is voiding freely. Vitals/I&O/Wt Last Vital Signs Temp 97.7 F 11/06/23 07:52 Pulse 75 11/06/23 07:52 Resp 17 11/06/23 10:09 BP 137/81 11/06/23 07:52 Pulse Ox 97 11/06/23 10:09 O2 Del Method Nasal Cannula 11/06/23 07:52 O2 Flow Rate 1 11/04/23 11:00 11/05/23 11/06/23 11/06/23 22:59 06:59 14:59 Intake Total 50 / 1568 250 / 1818 410 / 410 Output Total 1300 / 1300 Balance -1250 / 268 250 / 518 410 / 410 Weight last 48 hrs Weight 119 lb 3.2 oz Weight 155 lb Physical Exam 2 GI: OTHER: Abdominal exam is benign, surgical incision is dry, no evidence of seroma or other wound related complications, no evidence of hernia recurrence, abdomen is soft, minimally tender on the left lower quadrant. Urinary Catheter Management: Robin: Cath Placed During This Visit: yes, but has since been removed by the nurse Reason for Continuing Indwelling Catheter: Accurate Measurement of Urinary Output in Critically Ill Patients Urinary Catheter Date of Insertion: 11/02/23 Urinary Catheter Time of Insertion: 19:45 Date Urinary Catheter Removed: 11/01/23 Time Urinary Catheter Discontinued: 06:00 Data 11/06/23 04:18 11/06/23 04:18 Micro: Microbiology 10/31/23 08:41 Gram Stain - Final Hip - Left Anaerobic Culture - Preliminary Wound Culture - Final 10/31/23 08:13 Gram Stain - Final Hip - Left Anaerobic Culture - Preliminary Wound Culture - Final 11/03/23 10:00 Gram Stain - Final Sputum - Expectorated Sputum Sputum Culture - Preliminary Yeast species A&P Assessment and plan (1) Strangulated ventral hernia: Plan Patient is having a very good hospital progress after repair of a strangulated ventral hernia. His vital signs have remained stable, heart rate is in the 80s, he has been afebrile, has been passing a lot of gas but has not had a bowel movement yet. Patient can be cleared for discharge from the general surgery standpoint once he has a bowel movement. I appreciated other management per medical team. Attestations 2 Medical Necessity Statement*: Patient will require 24 hours more of hospital stay in order to ensure that he is having bowel movements. Coding Level of Care Code Acute Code for Chg Fwd Diagnoses Strangulated ventral hernia K43.6
--- NOTE | 2023-11-06 14:15 | P.PN_ITS ---
Subjective 2 Subjective: seen this am passing gas but hasnt had a BM yet otherwise doing well Vitals/I&O/Wt Last Vital Signs Temp 97.7 F 11/06/23 07:52 Pulse 90 11/06/23 12:00 Resp 26 H 11/06/23 12:00 BP 137/81 11/06/23 12:00 Pulse Ox 93 11/06/23 12:00 O2 Del Method Room Air 11/06/23 11:26 O2 Flow Rate 1 11/04/23 11:00 11/05/23 11/06/23 11/06/23 22:59 06:59 14:59 Intake Total 50 / 1568 250 / 1818 740 / 740 Output Total 1300 / 1300 200 / 200 Balance -1250 / 268 250 / 518 540 / 540 Weight last 48 hrs Weight 54.068 kg Weight 70.307 kg Physical Exam 2 Narrative: No acute distress Sitting up in recliner Normal S1-S2 regular rate rhythm Abdomen appropriately tender to palpation Extremities within normal limits, left hip covered with Band-Aid. Lungs clear to auscultation bilaterally no wheezes no rhonchi. Urinary Catheter Management: Robin: Cath Placed During This Visit: yes, but has since been removed by the nurse Reason for Continuing Indwelling Catheter: Accurate Measurement of Urinary Output in Critically Ill Patients Urinary Catheter Date of Insertion: 11/02/23 Urinary Catheter Time of Insertion: 19:45 Date Urinary Catheter Removed: 11/01/23 Time Urinary Catheter Discontinued: 06:00 Data 11/06/23 04:18 11/06/23 04:18 Micro: Microbiology 10/31/23 08:13 Gram Stain - Final Hip - Left Anaerobic Culture - Preliminary Wound Culture - Final 10/31/23 08:41 Gram Stain - Final Hip - Left Anaerobic Culture - Preliminary Wound Culture - Final 11/03/23 10:00 Gram Stain - Final Sputum - Expectorated Sputum Sputum Culture - Preliminary Yeast species A&P Assessment and plan (1) Postoperative hypotension: (2) Acute blood loss as cause of postoperative anemia: (3) Essential hypertension: (4) Peripheral arterial disease: (5) Hyperlipidemia, unspecified: Qualifiers: Hyperlipidemia type: mixed hyperlipidemia Qualified Code(s): E78.2 - Mixed hyperlipidemia (6) Panlobular emphysema: (7) Incarcerated hernia of abdominal cavity: Plan Mr. Sapp is a 73yoman w/ HTN, HLD, Panlobular Emphysema, PAD, who is s/p a L. 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 The Hospitalist Service was consulted on 11/01/2023 for postop hypotension. The patient was given normal saline and 1 unit PRBC. And then started on midodrine Subsequently the patient was found to have an incarcerated ventral/umbilical hernia and bilateral L>R inguinal hernias. Status post surgical repair on 11/02/2023 without mesh. Diet has been started and he will be transition to full liquids today. Discussed with Dr. Mica Bangura. Sinus pause, sinus bradycardia night of 11/05 ? Patient not interested in sleep study. ? We will do overnight pulse ox - report not available yet ? Will provide for referral for sleep study in case patient changes his mind as an outpatient. ? Will set up with a event monitor for 30 days at time of discharge ? Referral to cardiology as an outpatient. Briefly discussed with cardiology on the phone. AWaiting return of bowel function in order to DC. Discussed with gen surgery DVT ppx: SCD Disposition: Patient has been accepted at [facility] however is not interested in going there anymore. He would like to get a referral to [facility]. Will update case management Attestations 2 Medical Necessity Statement*: awaiting return of bowel function. Diagnoses Postoperative hypotension I95.81 Acute blood loss as cause of postoperative anemia D62 Essential hypertension I10 Peripheral arterial disease I73.9 Mixed hyperlipidemia E78.2 Hyperlipidemia type: mixed hyperlipidemia Panlobular emphysema J43.1 Incarcerated hernia of abdominal cavity K45.0
[2023-11-06] MEDS: sennosides-docusate Tablet 2 TAB PO (17:28)
--- NOTE | 2023-11-06 20:41 | P.PN_ITS ---
Subjective 2 Subjective: Patient resting in bed during visit today. He states he has been up with physical therapy and felt good while using the walker for ambulation. He has had some postoperative hip pain however this is well-controlled with medications. He is an moved from ICU to CSU for further follow-up. He states he is doing well overall. Doing well from an orthopedic standpoint. Maintains admission due to secondary procedure with general surgery and hernia repair. Has not had BM to this time but has had noted flatus. Medications: Reviewed: Yes Vitals/I&O/Wt Last Vital Signs Temp 97.7 F 11/06/23 07:52 Pulse 80 11/06/23 19:53 Resp 17 11/06/23 19:53 BP 137/81 11/06/23 16:00 Pulse Ox 94 11/06/23 19:53 O2 Del Method Room Air 11/06/23 19:53 O2 Flow Rate 1 11/04/23 11:00 11/06/23 11/06/23 11/06/23 06:59 14:59 22:59 Intake Total 250 / 1818 740 / 740 480 / 1220 Output Total 200 / 200 100 / 300 Balance 250 / 518 540 / 540 380 / 920 Weight last 48 hrs Weight 119 lb 3.2 oz Weight 155 lb Physical Exam 2 Const: COMMON NORMALS: no acute distress, average body habitus, patient oriented x3 and alert GENERAL APPEARANCE: cooperative and comfortable O RIENTATION/CONSCIOUSNESS: Yes awake Extremity: LEFT LOWER EXTREMITY: Yes hip joint (Dressing is dry and intact.) Left hip: Yes ROM (Not evaluated.) and Yes neurovascular exam (Intact distally with no evidence of DVT.) and Yes lower leg Left lower leg: Yes special tests Left lower leg special tests: Dillon's sign: Negative Neuro: COMMON NORMALS: patient oriented x3 SENSORIUM/ORIENTATION: Yes alert Psych: COMMON NORMALS: mental status grossly normal APPEARANCE: Yes grossly normal ATTITUDE: Yes calm and Yes engaged ATTENTION/CONCENTRATION: Yes attention grossly intact Skin: COMMON NORMALS: no rashes or lesions noted GENERAL SKIN EXAM: no rashes or lesions noted Urinary Catheter Management: Robin: Cath Placed During This Visit: yes, but has since been removed by the nurse Reason for Continuing Indwelling Catheter: Accurate Measurement of Urinary Output in Critically Ill Patients Urinary Catheter Date of Insertion: 11/02/23 Urinary Catheter Time of Insertion: 19:45 Date Urinary Catheter Removed: 11/01/23 Time Urinary Catheter Discontinued: 06:00 Data 11/06/23 04:18 11/06/23 04:18 Micro: Microbiology 11/03/23 10:00 Gram Stain - Final Sputum - Expectorated Sputum Sputum Culture - Final Diane albicans 10/31/23 08:13 Gram Stain - Final Hip - Left Anaerobic Culture - Preliminary Wound Culture - Final 10/31/23 08:41 Gram Stain - Final Hip - Left Anaerobic Culture - Preliminary Wound Culture - Final A&P Assessment and plan (1) History of total left hip arthroplasty: Mr. Sapp is a 73-year-old male patient who we are following status post left total hip arthroplasty which was performed on November 02, 2023, secondary to avascular necrosis of the left hip. Patient continues his inpatient rehab following left total hip arthroplasty complicated by a incarcerated ventral hernia. Postoperative therapies have been limited secondary to general surgical need for restricted activity following the repair. Patient was up today with physical therapy. He will continue to work on this as tolerated by his general surgical restrictions. We will continue to follow patient while in-house and see him tomorrow. Future Planning: Plan will be that he will require longterm at the time of discharge. Has been accepted to [facility]. Awaiting BM prior to discharge by medicine and general surgery. (2) Avascular necrosis of bone of left hip: (3) Deformity of left femur: (4) Postoperative hypotension: Attestations 2 Medical Necessity Statement*: Will remain inpatient for postoperative planning and discharged to longterm facility. Currently awaiting return of normal bowel pattern and function. Coding Level of Care Code Acute Code for Chg Fwd Diagnoses History of total left hip arthroplasty Z96.642 Avascular necrosis of bone of left hip M87.052 Deformity of left femur M21.852 Postoperative hypotension I95.81
[2023-11-06] MEDS: sodium chloride 0.9% 1,000 ML 75 ML IV (21:10)
[2023-11-06] MEDS: chlorhexidine gluconate 0.12% Btl 473 mL 30 ML MUCOUS MEM (21:11)
[2023-11-07] VITALS (12 sets, daily range): BP systolic 118–146; BP diastolic 58–80; PULSE 77–88; RESP 16–24; TEMP 36.6–37; O2SAT 91–96
[2023-11-07 05:05] LABS: Basophils % 0.6 %; Eosinophils # 0.5 10^3/uL (0.0-0.8); Eosinophils % 7.6 %; Hematocrit 28.7 % (37-53); Lymphocytes % 14.7 %; Mean Corpuscular HGB Conc 33.1 g/dL (30-55); Mean Corpuscular Hemoglobin 29.7 pg (27-33); Mean Corpuscular Volume 89.7 fl (82-101); Mean Platelet Volume 8.7 fL (7.4-10.4); Monocytes # 0.8 10^3/uL (0.2-0.9); Monocytes % 10.9 %; Neutrophils # 4.64 10^3/uL (1.8-7.7); Neutrophils % 65.6 %; Nucleated Red Blood Cells % 0 %; Platelet Count 410 10^3/cmm (157-399); Red Cell Distribution Width 13.6 % (12.1-15.1); White Blood Count 7.07 10^3/uL (3.29-11.43)
[2023-11-07 05:33] LABS: Alanine Aminotransferase 7 U/L (0-41); Albumin Level 2.9 g/dL (3.5-5.2); Alkaline Phosphatase 46 U/L (40-130); Aspartate Amino Transferase 12 U/L (0-40); Globulin 2.6 g/dL (1.3-4.6); Total Bilirubin 0.3 mg/dL (0.15-1.2); Total Protein 5.5 g/dL (6.6-8.7)
[2023-11-07 05:38] LABS: Anion Gap 14.4 (5-19); Blood Urea Nitrogen 13 mg/dL (8-23); Calcium 8.6 mg/dL (8.5-10.5); Carbon Dioxide 26 mmol/L (22-29); Chloride 108 mmol/L (98-107); Glucose 106 mg/dL (65-115); Magnesium 1.9 mg/dL (1.7-2.3); Osmolality Calculated 301 mOsm/kg (285-295); Potassium 3.4 mmol/L (3.5-5.1); Sodium 145 mmol/L (136-145)
[2023-11-07] MEDS: oxyCODONE 5 mg IR Tab/Cap PO (06:17)
[2023-11-07] MEDS: piperacillin-tazobactam 3.375 GM in sodium chloride 0.9% (plus) 50 ML IV ×2 (06:18→15:40)
--- NOTE | 2023-11-07 06:24 | PC.NURSE ---
Found IV catheter intact with fluids running removed from patient lying in his bed. Patient stated, I am supposed to discharge today. Informed Dr Morton and received instruction to discontinue IV and not replace IV catheter.
--- NOTE | 2023-11-07 07:22 | PM.PN ---
Subjective Subjective: Patient is postoperative day 4 status post primary repair of strangulated ventral hernia requiring bowel resection. Patient is doing very well this morning, no significant abdominal pain, states that he is passing large amount of gas, no bowel movement yet. Has been out of bed is voiding freely, vital signs are stable as well as his laboratory workup. Vitals/I&O/Wt Last Vital Signs Temp 98 F 11/07/23 03:34 Pulse 78 11/07/23 06:00 Resp 24 H 11/07/23 06:17 BP 133/75 11/07/23 03:34 Pulse Ox 94 11/07/23 03:34 O2 Del Method Room Air 11/07/23 03:34 O2 Flow Rate 1 11/04/23 11:00 11/06/23 11/07/23 11/07/23 22:59 06:59 14:59 Intake Total 530 / 2070 50 / 2120 Output Total 100 / 300 200 / 500 Balance 430 / 1770 -150 / 1620 Weight last 48 hrs Weight 117 lb 9 oz Weight 119 lb 3.2 oz Physical Exam GI: OTHER: Abdomen is soft, appropriately tender to palpation, nondistended, surgical incision is healing well. Urinary Catheter Management: Robin: Cath Placed During This Visit: yes, but has since been removed by the nurse Reason for Continuing Indwelling Catheter: Accurate Measurement of Urinary Output in Critically Ill Patients Urinary Catheter Date of Insertion: 11/02/23 Urinary Catheter Time of Insertion: 19:45 Date Urinary Catheter Removed: 11/01/23 Time Urinary Catheter Discontinued: 06:00 Data 11/07/23 04:20 11/07/23 04:20 Micro: Microbiology 11/03/23 10:00 Gram Stain - Final Sputum - Expectorated Sputum Sputum Culture - Final Diane albicans 10/31/23 08:13 Gram Stain - Final Hip - Left Anaerobic Culture - Preliminary Wound Culture - Final 10/31/23 08:41 Gram Stain - Final Hip - Left Anaerobic Culture - Preliminary Wound Culture - Final A&P Assessment and plan (1) Strangulated ventral hernia: Plan Very good progress after a primary repair of a strangulated ventral hernia with bowel resection. Patient is returning to baseline, has not had a bowel movement yet but has had large amount of gas overnight and he feels like 1 is coming. Will prescribe MiraLAX to assist with bowel movement. He is tolerating diet and otherwise doing well, once he have a bowel movement he is cleared for discharge from the general surgery standpoint to a [place] [facility] facility. Patient can follow-up in 2 weeks with general surgery in the clinic for staple removal and discussion regarding further need for surgery. Please continue stool softeners to avoid straining during bowel movements. Appreciate all other management per primary team. Attestations Medical Necessity Statement*: Length of stay duration as documented by medical team. Coding Level of Care Code Acute Code for Chg Fwd Diagnoses Strangulated ventral hernia K43.6
[2023-11-07] MEDS: budesonide 0.5 mg/2 mL Neb INHALATION ×2 (07:49→19:53)
[2023-11-07] MEDS: albuterol 2.5 mg/3 mL Neb INHALATION ×3 (07:50→19:53)
[2023-11-07] MEDS: sennosides-docusate Tablet 2 TAB PO ×2 (08:33→17:41)
[2023-11-07] MEDS: polyethylene glycol 3350 Pkt 17 gm PO (08:33)
[2023-11-07] MEDS: cholecalciferol (vitamin D3) 1,000 unit Tablet 1000 UNIT PO (08:33)
[2023-11-07] MEDS: atorvastatin 40 mg Tablet PO (08:34)
[2023-11-07] MEDS: acetaminophen 325 mg Tablet 650 MG PO ×2 (08:34→15:40)
[2023-11-07] MEDS: iron polysaccharide complex 150 mg Capsule PO ×2 (08:34→17:41)
[2023-11-07] MEDS: multivitamin therapeutic Tablet 1 TAB PO (08:34)
[2023-11-07] MEDS: pantoprazole DR 40 mg Tablet PO (08:34)
[2023-11-07] MEDS: aspirin 325 mg EC Tablet PO (08:34)
[2023-11-07] MEDS: cyanocobalamin 1,000 mcg/mL SDV 1000 MCG IM (10:01)
[2023-11-07] MEDS: iron sucrose 200 MG in sodium chloride 0.9% (100 ml) 100 ML 220 MG IV (10:01)
--- NOTE | 2023-11-07 14:37 | P.PN_ITS ---
Subjective 2 Subjective: pt had a very tiny bm this morning and feels constipated was started on miralax by gen surgery states he cant wait to poop Vitals/I&O/Wt Last Vital Signs Temp 98.6 F 11/07/23 12:00 Pulse 81 11/07/23 12:00 Resp 21 H 11/07/23 12:00 BP 138/70 11/07/23 12:00 Pulse Ox 93 11/07/23 12:00 O2 Del Method Room Air 11/07/23 12:00 O2 Flow Rate 1 11/04/23 11:00 11/06/23 11/07/23 11/07/23 22:59 06:59 14:59 Intake Total 530 / 2070 50 / 2120 1278 / 1278 Output Total 100 / 300 200 / 500 180 / 180 Balance 430 / 1770 -150 / 1620 1098 / 1098 Weight last 48 hrs Weight 53.325 kg Weight 54.068 kg Physical Exam 2 Narrative: No acute distress Sitting up in recliner Normal S1-S2 regular rate rhythm Abdomen appropriately tender to palpation Extremities within normal limits, left hip covered with Band-Aid. Lungs clear to auscultation bilaterally no wheezes no rhonchi. Urinary Catheter Management: Robin: Cath Placed During This Visit: yes, but has since been removed by the nurse Reason for Continuing Indwelling Catheter: Accurate Measurement of Urinary Output in Critically Ill Patients Urinary Catheter Date of Insertion: 11/02/23 Urinary Catheter Time of Insertion: 19:45 Date Urinary Catheter Removed: 11/01/23 Time Urinary Catheter Discontinued: 06:00 Data 11/07/23 04:20 11/07/23 04:20 Micro: Microbiology 10/31/23 08:41 Gram Stain - Final Hip - Left Anaerobic Culture - Final Wound Culture - Final 10/31/23 08:13 Gram Stain - Final Hip - Left Anaerobic Culture - Final Wound Culture - Final 11/03/23 10:00 Gram Stain - Final Sputum - Expectorated Sputum Sputum Culture - Final Diane albicans A&P Assessment and plan (1) Postoperative hypotension: (2) Acute blood loss as cause of postoperative anemia: (3) Essential hypertension: (4) Peripheral arterial disease: (5) Hyperlipidemia, unspecified: Qualifiers: Hyperlipidemia type: mixed hyperlipidemia Qualified Code(s): E78.2 - Mixed hyperlipidemia (6) Panlobular emphysema: (7) Incarcerated hernia of abdominal cavity: Plan Mr. Sapp is a 73yoman w/ HTN, HLD, Panlobular Emphysema, PAD, who is s/p a L. 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 The Hospitalist Service was consulted on 11/01/2023 for postop hypotension. The patient was given normal saline and 1 unit PRBC. And then started on midodrine Subsequently the patient was found to have an incarcerated ventral/umbilical hernia and bilateral L>R inguinal hernias. Status post surgical repair on 11/02/2023 without mesh. Diet has been started and he will be transition to full liquids today. Discussed with Dr. Estes. Added miralax this AM Sinus pause, sinus bradycardia night of 11/05 ? Patient not interested in sleep study. ? We will do overnight pulse ox - report not available yet ? Will provide for referral for sleep study in case patient changes his mind as an outpatient. ? Will set up with a event monitor for 30 days at time of discharge ? Referral to cardiology as an outpatient. Briefly discussed with cardiology on the phone. AWaiting return of bowel function in order to DC. Discussed with gen surgery DVT ppx: SCD Disposition: Patient has been accepted at [facility]. dc after BM Attestations 2 Medical Necessity Statement*: dc after bm, potentially in AM Diagnoses Postoperative hypotension I95.81 Acute blood loss as cause of postoperative anemia D62 Essential hypertension I10 Peripheral arterial disease I73.9 Mixed hyperlipidemia E78.2 Hyperlipidemia type: mixed hyperlipidemia Panlobular emphysema J43.1 Incarcerated hernia of abdominal cavity K45.0
[2023-11-07] MEDS: latanoprost 0.005% Op Soln 2.5 mL Btl 1 DROP EYE-BOTH (20:54)
[2023-11-07] MEDS: chlorhexidine gluconate 0.12% Btl 473 mL 30 ML MUCOUS MEM (20:55)
--- NOTE | 2023-11-07 22:09 | PM.PN ---
Subjective Subjective: Patient resting in bed during visit today. He states he has been up with physical therapy and felt good while using the walker for ambulation. He is orthopedically stable and doing well from my standpoint. He has had some postoperative hip pain however this is well-controlled with medications. Maintains admission due to secondary procedure with general surgery and hernia repair. Has not had BM to this time but has had noted flatus. Vitals/I&O/Wt Last Vital Signs Temp 98.6 F 11/07/23 20:00 Pulse 81 11/07/23 20:00 Resp 18 11/07/23 20:00 BP 118/58 11/07/23 20:00 Pulse Ox 93 11/07/23 20:00 O2 Del Method Room Air 11/07/23 20:00 O2 Flow Rate 1 11/04/23 11:00 11/07/23 11/07/23 11/07/23 06:59 14:59 22:59 Intake Total 50 / 2120 1278 / 1278 290 / 1568 Output Total 200 / 500 180 / 180 Balance -150 / 1620 1098 / 1098 290 / 1388 Weight last 48 hrs Weight 117 lb 9 oz Weight 119 lb 3.2 oz Physical Exam Const: COMMON NORMALS: no acute distress, average body habitus, patient oriented x3 and alert GENERAL APPEARANCE: cooperative and comfortable ORIENTATION/CONSCIOUSNESS: Yes awake Extremity: LEFT LOWER EXTREMITY: Yes hip joint (Dressing is dry and intact.) Left hip: Yes ROM (Not evaluated.) and Yes neurovascular exam (Intact distally with no evidence of DVT.) and Yes lower leg Left lower leg: Yes special tests Left lower leg special tests: Dillon's sign: Negative Neuro: COMMON NORMALS: patient oriented x3 SENSORIUM/ORIENTATION: Yes alert Psych: COMMON NORMALS: mental status grossly normal APPEARANCE: Yes grossly normal ATTITUDE: Yes calm and Yes engaged ATTENTION/CONCENTRATION: Yes attention grossly intact Skin: COMMON NORMALS: no rashes or lesions noted GENERAL SKIN EXAM: no rashes or lesions noted Urinary Catheter Management: Robin: Cath Placed During This Visit: yes, but has since been removed by the nurse Reason for Continuing Indwelling Catheter: Accurate Measurement of Urinary Output in Critically Ill Patients Urinary Catheter Date of Insertion: 11/02/23 Urinary Catheter Time of Insertion: 19:45 Date Urinary Catheter Removed: 11/01/23 Time Urinary Catheter Discontinued: 06:00 Data 11/07/23 04:20 11/07/23 04:20 Micro: Microbiology 10/31/23 08:41 Gram Stain - Final Hip - Left Anaerobic Culture - Final Wound Culture - Final 10/31/23 08:13 Gram Stain - Final Hip - Left Anaerobic Culture - Final Wound Culture - Final A&P Assessment and plan (1) History of total left hip arthroplasty: Mr. Sapp is a 73-year-old male patient who we are following status post left total hip arthroplasty which was performed on November 02, 2023, secondary to avascular necrosis of the left hip. Patient continues his inpatient rehab following left total hip arthroplasty complicated by a incarcerated ventral hernia. Postoperative therapies have been limited secondary to general surgical need for restricted activity following the repair. Patient was up today with physical therapy. Future Planning: Plan will be that he will require penitentiary at the time of discharge. Has been accepted to [facility]. Awaiting BM prior to discharge by medicine and general surgery. (2) Avascular necrosis of bone of left hip: (3) Deformity of left femur: (4) Postoperative hypotension: Attestations Medical Necessity Statement*: Length of stay and care as per medical and general surgery guidelines. Orthopedically stable for discharge. Will be discharged from facility after bowel movement. Passing flatus today, potentially going home tomorrow. Coding Level of Care Code Acute Code for Chg Fwd Diagnoses History of total left hip arthroplasty Z96.642 Avascular necrosis of bone of left hip M87.052 Deformity of left femur M21.852 Postoperative hypotension I95.81
[2023-11-08] VITALS (10 sets, daily range): BP systolic 115–138; BP diastolic 65–73; PULSE 73–90; RESP 18–26; TEMP 36.7–37.2; O2SAT 92–99
[2023-11-08] MEDS: piperacillin-tazobactam 3.375 GM in sodium chloride 0.9% (plus) 50 ML IV ×2 (01:04→10:37)
--- NOTE | 2023-11-08 08:00 | P.PN_ITS ---
Vitals/I&O/Wt Last Vital Signs Temp 98.4 F 11/08/23 04:00 Pulse 73 11/08/23 04:27 Resp 26 H 11/08/23 04:00 BP 126/70 11/08/23 04:00 Pulse Ox 92 11/08/23 04:00 O2 Del Method Room Air 11/08/23 04:00 O2 Flow Rate 1 11/04/23 11:00 11/07/23 11/08/23 11/08/23 22:59 06:59 14:59 Intake Total 290 / 1568 250 / 1818 Output Total 200 / 381 Balance 289 / 1387 50 / 1437 Weight last 48 hrs Weight 55.701 kg Weight 53.325 kg Physical Exam 2 Urinary Catheter Management: Robin: Cath Placed During This Visit: yes, but has since been removed by the nurse Reason for Continuing Indwelling Catheter: Accurate Measurement of Urinary Output in Critically Ill Patients Urinary Catheter Date of Insertion: 11/02/23 Urinary Catheter Time of Insertion: 19:45 Date Urinary Catheter Removed: 11/01/23 Time Urinary Catheter Discontinued: 06:00 Data 11/07/23 04:20 11/07/23 04:20 Micro: Microbiology 10/31/23 08:41 Gram Stain - Final Hip - Left Anaerobic Culture - Final Wound Culture - Final 10/31/23 08:13 Gram Stain - Final Hip - Left Anaerobic Culture - Final Wound Culture - Final Coding Level of Care Code Acute Code for Chg Atul
[2023-11-08 08:37] LABS: Anion Gap 11.3 (5-19); Blood Urea Nitrogen 14 mg/dL (8-23); Calcium 8.8 mg/dL (8.5-10.5); Carbon Dioxide 30 mmol/L (22-29); Chloride 105 mmol/L (98-107); Glucose 110 mg/dL (65-115); Osmolality Calculated 297 mOsm/kg (285-295); Potassium 3.3 mmol/L (3.5-5.1); Sodium 143 mmol/L (136-145)
--- NOTE | 2023-11-08 09:18 | PC.SOCIAL ---
IMM Update Pg. 2 of IMM updated and reviewed with patient who verbalized understanding. Copy provided.
[2023-11-08] MEDS: iron sucrose 200 MG in sodium chloride 0.9% (100 ml) 100 ML 220 MG IV (09:22)
[2023-11-08] MEDS: polyethylene glycol 3350 Pkt 17 gm PO (09:22)
[2023-11-08] MEDS: cyanocobalamin 1,000 mcg/mL SDV 1000 MCG IM (09:23)
[2023-11-08] MEDS: aspirin 325 mg EC Tablet PO (09:23)
[2023-11-08] MEDS: multivitamin therapeutic Tablet 1 TAB PO (09:23)
[2023-11-08] MEDS: cholecalciferol (vitamin D3) 1,000 unit Tablet 1000 UNIT PO (09:23)
[2023-11-08] MEDS: acetaminophen 325 mg Tablet 650 MG PO (09:23)
[2023-11-08] MEDS: iron polysaccharide complex 150 mg Capsule PO (09:23)
[2023-11-08] MEDS: pantoprazole DR 40 mg Tablet PO (09:24)
[2023-11-08] MEDS: atorvastatin 40 mg Tablet PO (09:24)
[2023-11-08] MEDS: calcium carbonate 500 mg Chew Tablet 1000 MG PO (09:24)
[2023-11-08] MEDS: chlorhexidine gluconate 0.12% Btl 473 mL 30 ML MUCOUS MEM (09:27)
[2023-11-08] MEDS: docusate sodium 100 mg Capsule 200 MG PO (09:44)
[2023-11-08] MEDS: albuterol 2.5 mg/3 mL Neb INHALATION ×2 (09:48→12:52)
[2023-11-08] MEDS: budesonide 0.5 mg/2 mL Neb INHALATION (09:48)
[2023-11-08] MEDS: potassium chloride ER 20 mEq Tablet 40 MEQ PO (09:50)
[2023-11-08 10:52] LABS: SARS Covid-2 Antigen negative (Negative)
--- NOTE | 2023-11-08 11:09 | PM.DCS ---
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 A size 7 Accolade II 132? neck angle hip stem with a size 28 mm x -2.7 mm femoral head and a sikh MDM X3 insert size 28 mm x 42E (2) Avascular necrosis of bone of left hip: Status: Acute (3) Deformity of left femur: Status: Acute (4) Postoperative hypotension: Status: Resolved Reason for Visit Reason for Visit: 06362 M16.9 Hospital Course Hospital Course Mr. Sapp is a 73yoman w/ HTN, HLD, Panlobular Emphysema, PAD, who is s/p a R. 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 The Hospitalist Service was consulted on 11/01/2023 for postop hypotension. Per review w/ the pharmacist, the patient received 1L NS bolus at 6:26am prior to surgery. He became hypotensive post-op and was given 1L in the evening of 10/31 around 21:00. The patient received another 500cc bolus in the early AM of 11/01. The patient was transfused 1unit prbc in the morning of 11/01. His BP appeared to improve until the early AM hrs of 11/02 when he became hypotensive to as low as 60/28mmHg, despite 1L NS, so he was transferred to the ICU and started on Midodrine. The patient's exam was significant for an incarcerated ventral/umbilical and bilateral L>R inguinal hernia. The patient's primary attending, Dr. Dahl, was notified, of my concerns, and I proposed obtaining a CT abd/pelvis and consulting general surgery. She transferred to the service over to the hospitalist and recommended consulting general surgery. General surgery was consulted, who saw the patient and believes that the patient has an incarcerated hernia, but there is no concern for bowel obstruction at this time. Per Gen Surg, he will likely need an elective repair in the future. It was decided to intervene during hospital stay. Patient is status post surgical repair on without mesh. Patient monitored in the hospital and once bowel function has returned he will be discharged to half-way at this time. He has had a bowel movement during hospital stay. He will be discharged with stool softeners. He is to follow-up with orthopedic surgery and general surgery in 2 weeks time. All questions answered. Patient stable for discharge at this point. Physical Exam Narrative: No acute distress Sitting up in recliner Normal S1-S2 regular rate rhythm Abdomen appropriately tender to palpation Extremities within normal limits, left hip covered with Band-Aid. Lungs clear to auscultation bilaterally no wheezes no rhonchi. Urinary Catheter Management: Robin: Cath Placed During This Visit: yes, but has since been removed by the nurse Reason for Continuing Indwelling Catheter: Accurate Measurement of Urinary Output in Critically Ill Patients Urinary Catheter Date of Insertion: 11/02/23 Urinary Catheter Time of Insertion: 19:45 Date Urinary Catheter Removed: 11/01/23 Time Urinary Catheter Discontinued: 06:00 Discharge Data Studies Completed and Pending Completed Studies During Hospitalization Category Date Time Status CT abdomen pelvis wo con [id number] Urgent Cat Scan 11/02/23 13:11 Completed CXRP [XR chest 1V portable [id number]] Routine Exams 11/02/23 12:27 Completed XR pelvis 1-2V* [id number] Routine Exams 10/31/23 11:06 Completed Pathology: Surgical [PTH] Routine Pth 10/31/23 08:39 Completed CV. echo complete* [id number] Routine Ultrasound 11/02/23 08:02 Completed Pending at discharge Category Date Time Status Pathology: Surgical [PTH] Routine Pth 11/02/23 22:57 Received Radiology Impressions Chest X-Ray 11/02/23 12:27 IMPRESSION: No acute cardiopulmonary abnormality identified. Abdomen/Pelvis CT 11/02/23 13:11 IMPRESSION: 1. Periumbilical hernia containing small bowel loops with evidence for strangulation and small bowel obstruction. 2. Status post left total hip replacement. There is fluid stranding and multiple foci of air in the musculature and subcutaneous soft tissues surrounding the left pelvis and left upper thigh which may be postoperative in nature. Infection cannot be excluded. 3. Infrarenal abdominal aorta is aneurysmal measuring 3.4 cm in AP dimension. No evidence for current rupture. ADDENDUM: 11/02/23 [id number] CRITICAL RESULT: The study was personally discussed on the telephone with Dr. GHOSH APPLETON on 11/02/2023 5:26 PM [employer]. The results were understood and acknowledged. Laboratory Results WBC 7.07 10^3/uL (3.29-11.43) 11/07/23 04:20 RBC 3.20 10^6/uL (3.85-5.65) L 11/07/23 04:20 Hgb 9.50 g/dL (11.27-16.99) L 11/07/23 04:20 Hct 28.7 % (37-53) L 11/07/23 04:20 MCV 89.7 fl (82-101) 11/07/23 04:20 MCH 29.7 pg (27-33) 11/07/23 04:20 MCHC 33.1 g/dL (30-55) 11/07/23 04:20 RDW 13.6 % (12.1-15.1) 11/07/23 04:20 Plt Count 410 10^3/cmm (157-399) H 11/07/23 04:20 MPV 8.7 fL (7.4-10.4) 11/07/23 04:20 Neut % (Auto) 65.6 % 11/07/23 04:20 Lymph % (Auto) 14.7 % 11/07/23 04:20 [place] % (Auto) 10.9 % 11/07/23 04:20 Eos % (Auto) 7.6 % 11/07/23 04:20 Baso % (Auto) 0.6 % 11/07/23 04:20 Reticulocyte % (Auto) 1.5 % (0.5-2.0) 11/02/23 13:19 Neut # (Auto) 4.64 10^3/uL (1.8-7.7) 11/07/23 04:20 Lymph # (Auto) 1.0 10^3/uL (0.8-4.8) 11/07/23 04:20 [place] # (Auto) 0.8 10^3/uL (0.2-0.9) 11/07/23 04:20 Eos # (Auto) 0.5 10^3/uL (0.0-0.8) 11/07/23 04:20 Baso # (Auto) 0.0 10^3/uL (0.0-0.1) 11/07/23 04:20 Nucleated RBC % (auto) 0 % 11/07/23 04:20 Total Counted 100 (0-100) 11/01/23 02:25 Atypical Lymphs % Not Reportable 11/01/23 02:25 Segmented Neutrophils 76 % 11/01/23 02:25 Abs Segm Neuts (Man) 4.0 10/cmm (1.6-7.1) 11/01/23 02:25 Band Neutrophils Not Reportable 11/01/23 02:25 Lymphocytes (Manual) 20 % 11/01/23 02:25 Monocytes (Manual) 6.0 % 11/01/23 02:25 Absolute Monocytes 0.3 10^3/cmm (0.1-0.6) 11/01/23 02:25 Eosinophils (Manual) 0 % 11/01/23 02:25 Absolute Eosinophils 0.0 10^3/cmm (0.0-0.7) 11/01/23 02:25 Basophils (Manual) 0.0 % 11/01/23 02:25 Absolute Basophils 0.0 10^3/cmm (0.0-0.2) 11/01/23 02:25 Nucleated RBCs # 0.0 /100WBC 11/07/23 04:20 Platelet Estimate Normal (Normal) 11/01/23 02:25 Peripher Smr Path Cons Sent for review 11/02/23 13:19 Haptoglobin 273.0 mg/L (30-200) H 11/02/23 13:19 PT 14.50 SECONDS (12.1-14.9) 11/02/23 14:06 INR 1.10 (0.8-1.2) 11/02/23 14:06 APTT 35.0 SECONDS (23.9-36.7) 11/02/23 14:06 Sodium 143 mmol/L (136-145) 11/08/23 08:08 Potassium 3.3 mmol/L (3.5-5.1) L 11/08/23 08:08 Chloride 105 mmol/L (98-107) 11/08/23 08:08 Carbon Dioxide 30 mmol/L (22-29) H 11/08/23 08:08 Anion Gap 11.3 (5-19) 11/08/23 08:08 BUN 14 mg/dL (8-23) 11/08/23 08:08 Creatinine 0.6 mg/dL (0.7-1.2) L 11/08/23 08:08 GFR Calculation Not Reportable 11/08/23 08:08 Glucose 110 mg/dL (65-115) 11/08/23 08:08 Calculated Osmolality 297 mOsm/kg (285-295) H 11/08/23 08:08 Lactate 1.0 mmol/L (0.5-2.2) 11/02/23 18:01 Calcium 8.8 mg/dL (8.5-10.5) 11/08/23 08:08 Phosphorus 2.9 mg/dL (2.5-4.5) 11/05/23 05:15 Magnesium 1.9 mg/dL (1.7-2.3) 11/07/23 04:20 Iron 10 ug/dL (59-158) L 11/02/23 13:19 TIBC 165 mcg/dl 11/02/23 13:19 % Saturation 6.0 % (20-50) L 11/02/23 13:19 Unsat Iron Binding 155 ug/dL (112-347) 11/02/23 13:19 Ferritin 762 ng/mL (30-400) H 11/02/23 13:19 Total Bilirubin 0.3 mg/dL (0.15-1.2) 11/07/23 04:20 Direct Bilirubin 0.20 mg/dL (0.00-0.30) 11/07/23 04:20 AST 12 U/L (0-40) 11/07/23 04:20 ALT 7 U/L (0-41) 11/07/23 04:20 Alkaline Phosphatase 46 U/L (40-130) 11/07/23 04:20 Lactate Dehydrogenase 237 U/L (135-225) H 11/02/23 13:19 Total Protein 5.5 g/dL (6.6-8.7) L 11/07/23 04:20 Albumin 2.9 g/dL (3.5-5.2) L 11/07/23 04:20 Globulin 2.6 g/dL (1.3-4.6) 11/07/23 04:20 Vitamin B12 216 pg/mL (232-1245) L 11/02/23 13:19 Folate 12.5 ng/mL (4.5-32.2) 11/02/23 13:19 Random Cortisol 11.24 ug/dL (2.47-19.5) 11/02/23 06:49 Urine Color Yellow (Yellow) 11/03/23 00:07 Urine Appearance Clear (CLEAR) 11/03/23 00:07 Urine pH 5 (5-7) 11/03/23 00:07 Ur Specific [place] 1.025 (1.005-1.030) 11/03/23 00:07 Urine Protein Neg (Negative) 11/03/23 00:07 Urine Glucose (UA) Norm (Normal) 11/03/23 00:07 Urine Ketones 1+ (Negative) H 11/03/23 00:07 Urine Blood Neg (Negative) 11/03/23 00:07 Urine Nitrate Negative (Negative) 11/03/23 00:07 Urine Bilirubin Neg (Negative) 11/03/23 00:07 Urine Urobilinogen Norm mg/dL (Negative) 11/03/23 00:07 Ur Leukocyte Esterase Negative (Negative) 11/03/23 00:07 SARS-CoV-2 Ag (Rapid) negative (Negative) 11/08/23 10:15 Blood Type B Positive 11/01/23 04:23 Rho(D) Type Rh positive 11/01/23 04:23 Antibody Screen Negative 11/01/23 04:23 Crossmatch See Detail 11/01/23 04:23 Vitals Last Vital Signs Temp 98.9 F 11/08/23 08:00 Pulse 85 11/08/23 09:55 Resp 20 H 11/08/23 09:49 BP 138/73 11/08/23 08:00 Pulse Ox 97 11/08/23 09:49 O2 Del Method Room Air 11/08/23 09:49 O2 Flow Rate 1 11/04/23 11:00 Discharge Plan Discharge Patient Disposition: Xfer SNF Condition: Stable Prescriptions: New docusate sodium 100 mg Capsule 200 mg PO DAILY PRN (Reason: Constipation) 10 Days Qty: 10 0RF Ferrex 150 150 mg iron Capsule 150 mg PO BIDWM 30 Days Qty: 30 0RF polyethylene glycol 3350 17 gram Powder In Packet 17 g PO DAILY PRN (Reason: Constipation) Qty: 15 0RF amoxicillin-pot clavulanate 875-125 mg tablet 1 tab PO BID Qty: 10 0RF Continued (DME) rollater walker with seat See Rx Instructions .Route .MEDSUPPLY Qty: 1 0RF Rx Instructions: As directed albuterol sulfate [Ventolin HFA] 90 mcg/actuation HFA aerosol inhaler 1 puff inhalation QID PRN (Reason: shortness of breath or wheezing) Qty: 8.5 3RF hydrocodone-acetaminophen 5-325 mg tablet 1 tab PO TID PRN (Reason: pain) 30 Days Qty: 90 0RF rosuvastatin [Crestor] 10 mg tablet 10 mg PO DAILY Qty: 30 4RF latanoprost 0.005 % drops 1 drp ophthalmic (eye) DAILY Rx Instructions: use in the evening cyclobenzaprine 10 mg tablet 10 mg PO Q8H PRN (Reason: Spasms) omeprazole 20 mg capsule,delayed release(DR/EC) 20 mg PO DAILY budesonide-formoterol [Symbicort] 80-4.5 mcg/actuation HFA aerosol inhaler 2 puff inhalation BID Rx Instructions: INHALE TWO PUFFS TWICE DAILY acetaminophen 650 mg Tablet Extended Release 650 mg PO Q8H PRN (Reason: Pain) Held cilostazol 50 mg tablet 50 mg PO BID Qty: 180 3RF Hold Instructions: see pcp valsartan 320 mg tablet 320 mg PO DAILY Hold Instructions: see pcp Discontinued ciprofloxacin HCl 500 mg tablet 500 mg PO BID Qty: 14 0RF celecoxib [Celebrex] 200 mg capsule 200 mg PO BID Qty: 60 1RF amlodipine 10 mg tablet 5 mg PO DAILY Discharge Orders: Discharge Order (Routine); Ordered 11/08/23 Ordered By: Floresita Lawrence Referrals: [facility] [Outside] Srdihar Estes MD [Physician] - 2 weeks Taylor Dahl MD [Physician] - 11/14/23 1:00 pm Discharge Diet: Advance as tolerated and Usual diet Discharge Activity: Limit activity as instructed, Use walker/crutches as instructed and As per PT/OT instructions Patient Instructions: Amoxicillin/Clavulanate Potassium (By mouth) (Augmentin, Augmentin..., Laxative, Stool Softeners (By mouth) (Doculax, Colace, Colace Clear, DSS), Polyethylene Glycol 3350 (By mouth) (Miralax, Healthylax..., Vitamin B with Iron (By mouth) (FE C Tab Plus, Ferocon, Ferrex 150..., Opioid Safety, Post Anesthesia Care Activity Restrictions/Additional Instructions: Ice to right hip. You may weight-bear as tolerated with posterior hip precautions. Follow-up as scheduled with me. Work with physical therapy for gait training and ambulation. Use walker or crutches as instructed by physical therapy. Discharge Attestations Time Spent in Discharge Care*: greater than 30 min Quality Metrics Clinical Quality Measures [ No reported AMI, CVA or VTE this stay] Coding Level of Care Code Acute Code for Chg Fwd Diagnoses History of total left hip arthroplasty Z96.642 Avascular necrosis of bone of left hip M87.052 Deformity of left femur M21.852 Postoperative hypotension I95.81
--- NOTE | 2023-11-08 12:50 | P.PN_ITS ---
Subjective 2 Subjective: Patient was transferred from ICU over to CCU. He is doing well and awaiting a bowel movement prior to discharge. He is in an abdominal binder. His hip dressing is dry and intact. Medications: Reviewed: Yes Vitals/I&O/Wt Last Vital Signs Temp 98.3 F 11/08/23 12:00 Pulse 87 11/08/23 12:00 Resp 22 H 11/08/23 12:00 BP 119/65 11/08/23 12:00 Pulse Ox 93 11/08/23 12:00 O2 Del Method Room Air 11/08/23 12:00 O2 Flow Rate 1 11/04/23 11:00 11/07/23 11/08/23 11/08/23 22:59 06:59 14:59 Intake Total 290 / 1568 250 / 1818 Output Total 200 / 381 Balance 289 / 1387 50 / 1437 Weight last 48 hrs Weight 122 lb 12.8 oz Weight 117 lb 9 oz Physical Exam 2 Const: COMMON NORMALS: no acute distress, average body habitus, patient oriented x3 and alert GENERAL APPEARANCE: cooperative and comfortable O RIENTATION/CONSCIOUSNESS: Yes awake HENMT: COMMON NORMALS: normocephalic and atraumatic HEAD & SCALP: n ormocephalic and atraumatic Eye: GENERAL EYE: appearance normal, both eyes and all related structures Chest: COMMONS NORMALS: normal inspection of the chest Resp: COMMON NORMALS: normal respiratory effort EFFORT & INSPECTION: Yes able to speak in complete sentences and Yes symmetric chest movement Extremity: LEFT LOWER EXTREMITY: Yes hip joint Left hip: Yes inspection (Dressing is dry and intact), Yes palpation (Minimal tenderness to palpation), Yes ROM (Not evaluated.) and Yes neurovascular exam (Intact with no evidence of DVT) Neuro: COMMON NORMALS: patient oriented x3 SENSORIUM/ORIENTATION: Yes alert Psych: COMMON NORMALS: mental status grossly normal APPEARANCE: Yes grossly normal ATTITUDE: Yes calm and Yes engaged ATTENTION/CONCENTRATION: Yes attention grossly intact Skin: COMMON NORMALS: no rashes or lesions noted GENERAL SKIN EXAM: no rashes or lesions noted Urinary Catheter Management: Robin: Cath Placed During This Visit: yes, but has since been removed by the nurse Reason for Continuing Indwelling Catheter: Accurate Measurement of Urinary Output in Critically Ill Patients Urinary Catheter Date of Insertion: 11/02/23 Urinary Catheter Time of Insertion: 19:45 Date Urinary Catheter Removed: 12/15/23 Time Urinary Catheter Discontinued: 06:00 Data 11/07/23 04:20 11/08/23 08:08 Micro: Microbiology 10/31/23 08:41 Gram Stain - Final Hip - Left Anaerobic Culture - Final Wound Culture - Final 10/31/23 08:13 Gram Stain - Final Hip - Left Anaerobic Culture - Final Wound Culture - Final A&P Assessment and plan (1) History of total left hip arthroplasty: Mr. Sapp is a 73-year-old male patient who we are following status post left total hip arthroplasty which was performed on November 02, 2023, secondary to avascular necrosis of the left hip. Patient continues his inpatient rehab following left total hip arthroplasty complicated by a incarcerated ventral hernia. Postoperative therapies have been limited secondary to general surgical need for restricted activity following the repair. Patient was up today with physical therapy. Today, the patient will be discharged to senior care in [place]. I have discussed the postoperative plan with the hospitalist team. His DVT prophylaxis was withheld secondary to his abdominal surgery, but she will discuss with the general surgeon to see whether or not we can add that back in to his postoperative regimen. He will follow-up with me as initially scheduled. (2) Avascular necrosis of bone of left hip: (3) Deformity of left femur: (4) Postoperative hypotension: Attestations 2 Medical Necessity Statement*: Per hospitalist team Coding Level of Care Code Acute Code for Chg Fwd Diagnoses History of total left hip arthroplasty Z96.642 Avascular necrosis of bone of left hip M87.052 Deformity of left femur M21.852 Postoperative hypotension I95.81
--- NOTE | 2023-11-08 14:42 | PC.NURSE ---
report phoned to [facility] re[facility].discharged via w/c to exit.hand in hand transportation to drive pt to snf
--- NOTE | 2023-11-08 16:58 | PC.NURSE ---
dr kessler called unit after pt was discharged.she ordered 325mg aspirin daily to be added to medication regime.this nurse called [facility] and gave verbal order for this as ordered.
== END 2023-11-08 14:45 | disposition skilled nursing facility (03) | DRG 470 ==
LOC: MEDSURG 13:39 → ICU 11-02 04:20 → CSU 11-05 12:51
PROVIDERS: Internal Medicine; Surgery; Admitting Provider Specialist; PCP Family Medicine; Visit Provider Internal Medicine
PROC: 0SRB0JZ Replacement of Left Hip Joint with Synthetic Substitute, Open Approach (ICD-10-PCS; CPT 27130; principal; 2023-10-31 07:00)
PROC: 0DB80ZZ Excision of Small Intestine, Open Approach (ICD-10-PCS; principal; 2023-11-02 19:05)
PROC: 0DB80ZZ Excision of Small Intestine, Open Approach (ICD-10-PCS; CPT 44120; 2023-11-02 19:05)
DX: M16.12 Unilateral primary osteoarthritis, left hip (principal); M87.352 Other secondary osteonecrosis, left femur; D62 Acute posthemorrhagic anemia; K43.6 Other and unspecified ventral hernia with obstruction, without gangrene; F32.A Depression, unspecified; Z85.46 Personal history of malignant neoplasm of prostate; K59.09 Other constipation; M54.50 Low back pain, unspecified; G89.29 Other chronic pain; I10 Essential (primary) hypertension; H40.9 Unspecified glaucoma; E78.2 Mixed hyperlipidemia; J43.1 Panlobular emphysema; I73.9 Peripheral vascular disease, unspecified; Z90.79 Acquired absence of other genital organ(s); F17.210 Nicotine dependence, cigarettes, uncomplicated; I95.81 Postprocedural hypotension; R00.1 Bradycardia, unspecified; E53.8 Deficiency of other specified B group vitamins; D50.9 Iron deficiency anemia, unspecified; K40.20 Bilateral inguinal hernia, without obstruction or gangrene, not specified as recurrent; Z11.52 Encounter for screening for COVID-19
CPT/HCPCS: 36415; 36430; 51702; 71045; 72170; 74176; 80048; 80076; 80503; 81003; 82533; 82607; 82728; 82746; 83010; 83540; 83550; 83605; 83615; 83735; 84100; 85007; 85014; 85018; 85025; 85027; 85045; 85610; 85730; 86850; 86900; 86920; 87070; 87075; 87106; 87176; 87205; 87426; 88302; 88304; 88307; 88311; 92526; 92610; 93306; 94640; 94762; 96372; 96376; 97110; 97116; 97161; 97165; 97530; 97535; C1776; G0378; J0131; J0330; J0690; J1100; J1756; J2371; J2405; J2543; J2704; J3010; J3370; J3420; J3490; J7030; J7040; J7120; J7613; J7626; P9016; P9045; Q9967

== ENCOUNTER → 2023-12-13 11:13 | Outpatient (BNVA) | payer MEDICARE, OTHER, SELFPAY | PROVIDERS: PCP Family Medicine; Visit Provider Nurse Practitioner | DX: Z96.642 Presence of left artificial hip joint (principal); Z09 Encounter for follow-up examination after completed treatment for conditions other than malignant neoplasm | CPT/HCPCS: 73502; 99024 ==

== ENCOUNTER → 2024-01-08 11:23 | Outpatient (BNVA) | payer MEDICARE, OTHER, SELFPAY | PROVIDERS: PCP Family Medicine; Visit Provider Nurse Practitioner | DX: M17.12 Unilateral primary osteoarthritis, left knee; M23.52 Chronic instability of knee, left knee; Z98.890 Other specified postprocedural states; Z87.19 Personal history of other diseases of the digestive system | CPT/HCPCS: 73560; 73565; 99213; 99214 ==

== ENCOUNTER → 2024-01-13 18:27 | Outpatient (BNVA) | payer MEDICARE, OTHER, SELFPAY | PROVIDERS: PCP Family Medicine; Visit Provider Family Medicine | DX: R30.0 Dysuria | CPT/HCPCS: 81003; 87077; 87086; 87184 ==

== ENCOUNTER → 2024-02-07 10:38 | Outpatient (BNVA) | payer MEDICARE, OTHER, SELFPAY | PROVIDERS: PCP Family Medicine; Visit Provider Nurse Practitioner | DX: Z96.642 Presence of left artificial hip joint (principal) | CPT/HCPCS: 99213 ==

== ENCOUNTER → 2024-02-12 09:33 | Outpatient (BNVA) | payer MEDICARE, OTHER, SELFPAY | PROVIDERS: PCP Family Medicine; Visit Provider Nurse Practitioner | DX: M17.12 Unilateral primary osteoarthritis, left knee (principal); S76.312A Strain of muscle, fascia and tendon of the posterior muscle group at thigh level, left thigh, initial encounter; I73.9 Peripheral vascular disease, unspecified; X58.XXXA Exposure to other specified factors, initial encounter | CPT/HCPCS: 99213 ==

== ENCOUNTER → 2024-03-10 10:58 | Outpatient (BNVA) | payer MEDICARE, OTHER, SELFPAY | PROVIDERS: PCP Family Medicine; Visit Provider Surgery | DX: R22.1 Localized swelling, mass and lump, neck (principal); Z98.890 Other specified postprocedural states; Z87.19 Personal history of other diseases of the digestive system | CPT/HCPCS: 99213 ==

== ENCOUNTER → 2024-03-18 10:35 | Outpatient (BNVA) | payer MEDICARE, OTHER, SELFPAY | PROVIDERS: PCP Family Medicine; Visit Provider Surgery | DX: R22.1 Localized swelling, mass and lump, neck (principal) | CPT/HCPCS: 99213 ==

== ENCOUNTER → 2024-04-01 10:28 | Outpatient (BNVA) | payer MEDICARE, OTHER, SELFPAY | PROVIDERS: PCP Family Medicine; Visit Provider Surgery | DX: R22.1 Localized swelling, mass and lump, neck (principal) | CPT/HCPCS: 99213 ==

== ENCOUNTER → 2024-04-21 10:52 | Outpatient (BNVA) | payer MEDICARE, OTHER, SELFPAY | PROVIDERS: PCP Family Medicine; Visit Provider Family Medicine | DX: I10 Essential (primary) hypertension; E78.2 Mixed hyperlipidemia; Z12.5 Encounter for screening for malignant neoplasm of prostate; Z96.649 Presence of unspecified artificial hip joint; J43.1 Panlobular emphysema; H61.23 Impacted cerumen, bilateral | CPT/HCPCS: 80053; 80061; 84443; 85025; G0103 ==

== ENCOUNTER → 2024-05-25 13:43 | Outpatient (BNVA) | payer MEDICARE, OTHER, SELFPAY | PROVIDERS: PCP Family Medicine; Visit Provider Nurse Practitioner | DX: Z96.642 Presence of left artificial hip joint (principal) | CPT/HCPCS: 99213 ==